=== PATIENT | female | born 1955 | race Caucasian/White ===

== ENCOUNTER 2016-07-12 09:56 | Outpatient (CLI) | payer MEDICARE, OTHER | END 2016-07-12 09:57 | disposition home or self-care (01) | DX: Z12.31 Encounter for screening mammogram for malignant neoplasm of breast (principal) ==

== ENCOUNTER 2016-10-14 18:05 | Outpatient (CLI) | payer MEDICARE, OTHER ==
[2016-10-14] MEDS ORDERED: IOPAMIDOL-300 100 ML VIAL IVP ONE (19:52)
[2016-10-14] MEDS ORDERED: IOPAMIDOL-300 50 ML VIAL PO ONE (19:52)
== END 2016-10-14 18:06 | disposition home or self-care (01) ==
DX: R10.32 Left lower quadrant pain (principal); R91.8 Other nonspecific abnormal finding of lung field; Z85.118 Personal history of other malignant neoplasm of bronchus and lung

== ENCOUNTER 2016-10-18 09:14 | Outpatient (CLI) | payer MEDICARE, OTHER ==
[2016-10-18] MEDS ORDERED: IOPAMIDOL-300 100 ML VIAL IVP ONE (10:08)
--- NOTE | 2016-10-18 12:59 | CT Report ---
CT CHEST WITH CONTRAST: 10/18/2016 CLINICAL INDICATION: History of right lung cancer, nodule noted at right lung base on CT abdomen and pelvis of 10/14/2016. COMPARISON: CT abdomen and pelvis of 10/14/2016, CT chest 11/15/2013. TECHNIQUE: Axial CT images of the chest were obtained with 100 mL Isovue-300 intravenously. In accordance with CT protocol optimization, one or more of the following dose reduction techniques w ere utilized for this exam: automated exposure control, adjustment of mA and/or KV based on patient size, or use of iterative reconstructive technique. FINDINGS: The heart and great vessels demonstrate atherosclerotic calcifications. No hilar or media stinal lymphadenopathy is present. The 4-mm subpleural nodule in the posteromedial right lower lobe is unchanged from CT of 10/14/2016 (best seen on axial image 45). Minimal atelectatic changes are pr esent. No other pulmonary nodule or mass lesion is seen. No effusion or pneumothorax is present. P ostoperative changes are stable. Limited evaluation of upper abdominal structures demonstrates francisca l adrenal glands. Osseous structures demonstrate degenerative changes. IMPRESSION: A 4-MM SUBPLEURAL NODULE IN THE RIGHT LOWER LOBE. NO OTHER PULMONARY NODULE OR MASS LES ION IS SEEN. STABLE POSTOPERATIVE CHANGES. JOB #: [id number] EXT JOB #:[id number]
== END 2016-10-18 09:15 | disposition home or self-care (01) ==
LOC: LAB 09:14
PROVIDERS: ATTEND Physician Assistant Medical
DX: C34.31 Malignant neoplasm of lower lobe, right bronchus or lung (principal)
CPT/HCPCS: 71260; Q9967

== ENCOUNTER 2016-10-31 20:15 | Outpatient (CLI) | payer MEDICARE, OTHER ==
[2016-10-31 19:34] LABS: BASOPHILS % (AUTO) 0.5 %; EOSINOPHILS # (AUTO) 0.2 10^3/uL (0.0-0.7); EOSINOPHILS % (AUTO) 1.6 %; HCT - HEMATOCRIT 44.4 % (37.0-47.0); HGB - HEMOGLOBIN 14.7 g/dL (12.0-16.0); LYMPHOCYTES % (AUTO) 30.2 %; MEAN CORPUSCULAR HEMOGLOBIN 28.1 pg (27.0-31.0); MEAN CORPUSCULAR HGB CONC 33.2 g/dL (32.0-36.0); MEAN CORPUSCULAR VOLUME 84.8 fL (81.0-99.0); MEAN PLATELET VOLUME 10.4 fL (7.9-10.8); MONOCYTES # (AUTO) 0.8 10^3/uL (0.0-1.0); MONOCYTES % (AUTO) 7.6 %; NEUTROPHILS # (AUTO) 5.9 10^3/uL (1.5-6.6); NEUTROPHILS % (AUTO) 60.1 %; RED BLOOD COUNT 5.24 10^6/uL (4.20-5.40); RED CELL DISTRIBUTION WIDTH 13.6 % (12.0-15.0); UNCORRECTED WHITE BLOOD COUNT 9.8 x10^3/uL; WHITE BLOOD COUNT 9.8 x10^3/uL (4.8-10.8)
[2016-10-31 20:16] LABS: THYROID STIMULATING HORMONE < 0.08 uIU/mL (0.34-5.60)
== END 2016-10-31 20:16 | disposition home or self-care (01) ==
LOC: LAB.WCP 20:15
PROVIDERS: ATTEND Family Medicine
DX: E05.90 Thyrotoxicosis, unspecified without thyrotoxic crisis or storm (principal); R10.9 Unspecified abdominal pain
CPT/HCPCS: 36415; 84439; 84443; 84481; 85025

== ENCOUNTER 2017-01-06 09:47 | Outpatient (CLI) | payer MEDICARE, OTHER ==
[2017-01-06 13:53] LABS: CHOL/HDL RATIO 3.8 (<4.4); CHOLESTEROL 117 mg/dL; HDL CHOLESTEROL 31 mg/dL; LDL/HDL RATIO 1.8 (<4.4); TRIGLYCERIDES 144 mg/dL; VLDL CHOLESTEROL 29 mg/dL
[2017-01-06 16:52] LABS: HEMOGLOBIN A1C 0.98 g/dL
== END 2017-01-06 09:48 | disposition home or self-care (01) ==
LOC: LAB.WCP 09:47
PROVIDERS: ATTEND Physician Assistant Medical
DX: E11.65 Type 2 diabetes mellitus with hyperglycemia (principal)
CPT/HCPCS: 36415; 80061; 83036

== ENCOUNTER 2017-05-07 15:51 | Outpatient (CLI) | payer MEDICARE, OTHER ==
[2017-05-07 12:32] LABS: BASOPHILS % (AUTO) 0.4 %; EOSINOPHILS # (AUTO) 0.2 10^3/uL (0.0-0.7); EOSINOPHILS % (AUTO) 1.7 %; HCT - HEMATOCRIT 44.3 % (37.0-47.0); LYMPHOCYTES # (AUTO) 3.9 10^3/uL (1.5-3.5); LYMPHOCYTES % (AUTO) 39.3 %; MEAN CORPUSCULAR HEMOGLOBIN 28.1 pg (27.0-31.0); MEAN CORPUSCULAR HGB CONC 33.8 g/dL (32.0-36.0); MEAN PLATELET VOLUME 9.7 fL (7.9-10.8); MONOCYTES # (AUTO) 0.8 10^3/uL (0.0-1.0); MONOCYTES % (AUTO) 7.7 %; NEUTROPHILS # (AUTO) 5.1 10^3/uL (1.5-6.6); NEUTROPHILS % (AUTO) 50.9 %; RED BLOOD COUNT 5.34 10^6/uL (4.20-5.40); RED CELL DISTRIBUTION WIDTH 12.9 % (12.0-15.0)
[2017-05-07 12:47] LABS: CALCIUM 9.1 mg/dL (8.5-10.3); CREATININE 0.3 mg/dL (0.4-1.0); POTASSIUM 3.7 mmol/L (3.5-5.0)
[2017-05-07 13:07] LABS: HEMOGLOBIN A1C 0.97 g/dL
== END 2017-05-07 15:52 | disposition home or self-care (01) ==
LOC: LAB.WCP 15:51
PROVIDERS: ATTEND Physician Assistant Medical
DX: E11.65 Type 2 diabetes mellitus with hyperglycemia (principal); D75.1 Secondary polycythemia
CPT/HCPCS: 36415; 80048; 82043; 83036; 85025

== ENCOUNTER 2017-11-27 08:00 | Outpatient (CLI) | payer MEDICARE, OTHER ==
[2017-11-27 19:26] LABS: CALCIUM 9.5 mg/dL (8.5-10.3); CREATININE 0.4 mg/dL (0.4-1.0)
[2017-11-27 19:59] LABS: HB2 TOTAL 17.8 g/dL; HEMOGLOBIN A1C 1.14 g/dL
== END 2017-11-27 08:01 | disposition home or self-care (01) ==
LOC: LAB.WCP 08:00
PROVIDERS: ATTEND Physician Assistant Medical
DX: E11.65 Type 2 diabetes mellitus with hyperglycemia (principal)
CPT/HCPCS: 36415; 80048; 83036

== ENCOUNTER 2018-01-20 20:39 | Emergency (ER) | payer MEDICARE, OTHER ==
[2018-01-20] MEDS ORDERED: IBUPROFEN 800 MG TABLET PO STA ×2 (21:02→22:20)
--- NOTE | 2018-01-20 21:10 | ED Physician Documentation ---
PD HPI LOWER EXT INJURY - Stated complaint Stated Complaint: GLF/RT HIP PX - Chief complaint Chief Complaint: Ext Problem - History obtained from History obtained from: Patient - History of Present Illness PD HPI LOW EXT INJURY LOCATION: Right (63-year-old woman tripped and fell on her deck, her left knee gave out and then she landed on her right injuring the right knee and hip. She is able to walk but with a lot of difficulty. Also the low back hurts. 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 - Past Surgical History Past Surgical History: Yes General: Other - Present Medications Home Medications: Ambulatory Orders Medication Instructions Recorded Confirmed Ibuprofen [Motrin] 800 mg PO Q8H PRN #30 tablet 01/20/18 - Allergies Allergies/Adverse Reactions: Allergies Allergy/AdvReac Type Severity Reaction Status Date / Time propoxyphene [From Darvon] AdvReac Itching Verified 01/20/18 21:10 narc AdvReac Itching Uncoded 01/20/18 21:11 narcotics AdvReac Itching Uncoded 01/20/18 21:11 - Social History Does the pt smoke?: No Smoking Status: Never smoker Does the pt drink ETOH?: No Does the pt have substance abuse?: No - Immunizations Immunizations are current?: Yes - POLST Patient has POLST: No PD ED PE NORMAL - Vitals Vital signs reviewed: Yes - General General: Alert and oriented X 3, No acute distress - Neck Neck: Supple, no meningeal sign, No bony TTP - Abdomen Abdomen: Soft, Non tender - Back Back: Other (Very mild tenderness of the low lumbar spine) - Extremities Extremities: Other (The right hip itself is nontender, she is more tender over the right buttock. She has no pain with internal and external rotation of the right hip but with flexion at the hip she complains again of pain in the buttock. The right knee is very mildly tender anteriorly. The left knee has some tenderness on the medial and lateral sides without deformity or limited range of motion.) - Neuro Neuro: Alert and oriented X 3, Normal speech Results - Vitals Vitals: Vital Signs - 24 hr 01/20/18 01/20/18 20:43 21:12 Temperature 36.3 C L Heart Rate 72 Respiratory 18 17 Rate Blood Pressure 135/64 H O2 Saturation 93 Oxygen O2 Source Room air - Rads (name of study) X-rays of both hips, both knees, and the lumbar spine Radiology: EMP read contemporaneously (Negative for acute pathology, DJD in all of her joints.) PD MEDICAL DECISION MAKING - ED course ED course: The presentation and history and physical are inconsistent with hip fracture, more like buttock contusion. I can internally and externally rotate the hips without significant pain she has been ambulatory. - Sepsis Event Vital Signs: Vital Signs - 24 hr 01/20/18 01/20/18 20:43 21:12 Temperature 36.3 C L Heart Rate 72 Respiratory 18 17 Rate Blood Pressure 135/64 H O2 Saturation 93 Oxygen O2 Source Room air Departure - Departure Disposition: 01 Home, Self Care Clinical Impression: Knee sprain, bilateral Low back sprain Qualifiers: Encounter type: initial encounter Qualified Code(s): S33.5XXA - Sprain of ligaments of lumbar spine, initial encounter Contusion, buttock Qualifiers: Encounter type: initial encounter Qualified Code(s): S30.0XXA - Contusion of lower back and pelvis, initial encounter Condition: Good Record reviewed to determine appropriate education?: Yes Instructions: ED Low Back Pain Injury Follow-Up: Audra Chung PA-C [Primary Care Provider] - Within 1 week Prescriptions: Ibuprofen [Motrin] 800 mg PO Q8H PRN #30 tablet PRN Reason: PAIN &/OR FEVER Comments: Your blood pressure was elevated today on check into the emergency department. This does not mean that you have hypertension, it is a common phenomenon to come to the emergency department and have elevated blood pressure. I recommend that you see your primary care physician within the week to have it rechecked when you are feeling better.
--- NOTE | 2018-01-20 21:55 | XRAY Report ---
Procedure Date: 01/20/2018 Accession Number: [id number] / [id number] Procedure: XR - Lumbar Spine 2 View CPT Code: FULL RESULT: EXAM: LUMBOSACRAL SPINE RADIOGRAPHY EXAM DATE: 01/20/2018 09:33 PM. CLINICAL HISTORY: BACK PAIN, FALL. COMPARISONS: None. TECHNIQUE: 2 views. FINDINGS: Alignment: Normal. No spondylolisthesis or scoliosis. Bones: Five wfq-iwe-elqghsi lumbar vertebral bodies are present. No fractures or bone lesions. Disks: Osteophyte at every level. Facets: Facet arthropathy L5-S1 Sacroiliac Joints: Unremarkable. Soft Tissues: Vascular calcifications. The visualized bowel gas pattern is normal. IMPRESSION: DJD [facility]
--- NOTE | 2018-01-20 21:55 | XRAY Report ---
Procedure Date: 01/20/2018 Accession Number: [id number] / [id number] Procedure: XR - Hips 2V BILAT CPT Code: FULL RESULT: EXAM: BILATERAL HIP RADIOGRAPHY EXAM DATE: 01/20/2018 09:33 PM. CLINICAL HISTORY: HIP PAIN, FALL. COMPARISON: None. TECHNIQUE: 2 views each. FINDINGS: Bones: Normal. No fractures or bone lesion. Right Hip: Osteophyte acetabulum No dislocation. The hip joint space is preserved. Left Hip: Osteophyte acetabulum. No dislocation. The hip joint space is preserved. Soft Tissues: Normal. No soft tissue swelling. IMPRESSION: Mild bilateral DJD [facility]
--- NOTE | 2018-01-20 21:59 | XRAY Report ---
Procedure Date: 01/20/2018 Accession Number: [id number] / [id number] Procedure: XR - Knee 3 View BILAT CPT Code: FULL RESULT: EXAMS: 1. Right Knee Radiography 2. Left Knee Radiography EXAM DATE:01/20/2018 09:33 PM. CLINICAL HISTORY:KNEE PAIN FALL. COMPARISON: None. TECHNIQUE: 3 views each. FINDINGS: Right Knee: Bones: Normal. No fractures or bone lesions. Joints: Osteophyte patellofemoral compartment with facet narrowing No effusion. No subluxations. Soft Tissues: Normal. No soft tissue swelling. Left Knee: Bones: Normal. No fractures or bone lesions. Joints: Osteophyte patellofemoral compartment with facet narrowing No effusion. No subluxations. Soft Tissues: Normal. No soft tissue swelling. IMPRESSION: Bilateral DJD [facility]
[2018-01-20 22:30] VITALS: BP 138/59
== END 2018-01-20 23:00 | disposition home or self-care (01) ==
LOC: ED 20:39
DX: S83.92XA Sprain of unspecified site of left knee, initial encounter (principal); S83.91XA Sprain of unspecified site of right knee, initial encounter; S33.5XXA Sprain of ligaments of lumbar spine, initial encounter; S30.0XXA Contusion of lower back and pelvis, initial encounter; W18.09XA Striking against other object with subsequent fall, initial encounter; Y92.89 Other specified places as the place of occurrence of the external cause; R03.0 Elevated blood-pressure reading, without diagnosis of hypertension; Z85.118 Personal history of other malignant neoplasm of bronchus and lung
CPT/HCPCS: 72100; 73521; 73562; 99283; A9270

== ENCOUNTER 2018-02-25 08:11 | Outpatient (CLI) | payer MEDICARE, OTHER ==
--- NOTE | 2018-02-25 10:49 | MRI Report ---
Reason: INTERNAL DERANGEMENT,LEFT KNEE Procedure Date: 02/25/2018 Accession Number: [id number] / [id number] Procedure: MRI - Knee LT W/O CPT Code: FULL RESULT: EXAM: LEFT KNEE MRI WITHOUT CONTRAST EXAM DATE: 02/25/2018 10:03 AM. CLINICAL HISTORY: Internal derangement, left knee. COMPARISON: None. TECHNIQUE: Multiplanar, multisequence T1-weighted and fluid-sensitive sequences of the knee without contrast. Other: None. FINDINGS: Bones: Small osteophytes in all 3 compartments. Alignment normal. No fracture or marrow edema. Articular Cartilage: Grade III chondromalacia medial compartment. Grade II chondromalacia lateral compartment. Grade III-IV chondromalacia of the medial patella. Medial Meniscus: 2 cm complex tear of the posterior horn and body with a large horizontal cleavage component, and a peripheral oblique component of the meniscal body with a 0.6 cm inferior fragment displaced peripherally. Lateral Meniscus: The lateral meniscus is intact. Cruciate Ligaments: The anterior and posterior cruciate ligaments are intact. Collateral Ligaments: The medial collateral and lateral collateral ligamentous structures are intact. Tendons: The quadriceps, patellar, semimembranosus, and popliteus tendons are unremarkable. Musculature: No edema or fatty atrophy. Other: No effusion. Small collapsed popliteal fossa cyst adjacent to the distal semimembranosus below the joint level, with 1 or 2 small extruded loose joint bodies. No loose bodies. The medial and lateral retinacula are intact. The subcutaneous tissues and fat pads are unremarkable. IMPRESSION: 1. Moderate 3 compartment degenerative joint disease, most significant in the medial and patellofemoral compartments. 2. Complex tear posterior horn and body medial meniscus with a small inferior peripheral fragment extruded peripherally. 3. Collapsed popliteal fossa cyst posteromedial just below the joint space level with 2 small extruded loose joint bodies. [facility] MUSCULOSKELETAL RADIOLOGY SECTION
== END 2018-02-25 08:12 | disposition home or self-care (01) ==
LOC: DI 08:11
PROVIDERS: ATTEND Physician Assistant
DX: M17.12 Unilateral primary osteoarthritis, left knee (principal); S83.232A Complex tear of medial meniscus, current injury, left knee, initial encounter; M71.22 Synovial cyst of popliteal space [Baker], left knee

== ENCOUNTER 2018-04-22 10:32 | Outpatient (CLI) | payer MEDICARE, OTHER ==
[2018-04-22 19:20] LABS: HB2 TOTAL 16.7 g/dL; HEMOGLOBIN A1C 1.1 g/dL; HEMOGLOBIN A1C % 8.2 % (4.6-6.2)
[2018-04-22 19:33] LABS: BUN - BLOOD UREA NITROGEN 13 mg/dL (6-20); CALCIUM 9.5 mg/dL (8.5-10.3); CARBON DIOXIDE - CO2 24 mmol/L (21-32); CHLORIDE 105 mmol/L (101-111); CHOL/HDL RATIO 4.3 (<4.4); CHOLESTEROL 146 mg/dL; CREATININE 0.5 mg/dL (0.4-1.0); GFR - MDRD 125 (>89); GLUCOSE 195 mg/dL (70-100); HDL CHOLESTEROL 34 mg/dL; LDL CHOLESTEROL,CALCULATED 78 mg/dL; LDL/HDL RATIO 2.3 (<4.4); SODIUM 139 mmol/L (135-145); VLDL CHOLESTEROL 34 mg/dL
== END 2018-04-22 10:33 ==
LOC: LAB.WCP 10:32
PROVIDERS: ATTEND Physician Assistant Medical
DX: E11.65 Type 2 diabetes mellitus with hyperglycemia (principal)
CPT/HCPCS: 36415; 80048; 80061; 83036; 83721

== ENCOUNTER 2018-09-29 12:15 | Outpatient (CLI) | payer MEDICARE, OTHER ==
--- NOTE | 2018-09-30 09:02 | Mammography Report ---
Reason: SCREENING MAMMO Procedure Date: 09/29/2018 Accession Number: [id number] / [id number] Procedure: MGN - Screening Mammo Dig Bilat CPT Code: FULL RESULT: EXAM: Screening Mammo Dig Bilat DATE: 09/29/2018 1:34 PM CLINICAL HISTORY: Screening encounter. History of benign right breast biopsy. TECHNIQUE: (B) - Bilateral CC and MLO views were obtained. COMPARISON: 07/12/2016 through 12/27/2011. PARENCHYMAL PATTERN: (A) - The breast(s) demonstrate(s) scattered fibroglandular densities. FINDINGS: Postbiopsy changes are seen in the right breast, stable. There are no suspicious masses, calcifications, or areas of distortion. IMPRESSION: Benign findings. BI-RADS category 2. RECOMMENDATION: (ANNUAL) - Recommend routine annual screening mammography. BI-RADS CATEGORY: (2) - Benign Findings. STANDARD QUALIFYING STATEMENTS: 1. This examination was not reviewed with the aid of Computer-Aided Detection (CAD). 2. A negative or benign imaging report should not preclude biopsy if clinically suspicious findings are present. 3. Dense breasts may obscure an underlying neoplasm. 4. This examination was reviewed without the aid of 3D breast imaging (tomosynthesis).
== END 2018-09-29 12:16 | disposition home or self-care (01) ==
LOC: DI.N 12:15
DX: Z12.31 Encounter for screening mammogram for malignant neoplasm of breast (principal)
CPT/HCPCS: 77067

== ENCOUNTER 2018-10-07 11:15 | Outpatient (CLI) | payer MEDICARE, OTHER ==
[2018-10-07 19:09] LABS: HB2 TOTAL 16.2 g/dL; HEMOGLOBIN A1C 1.2 g/dL; HEMOGLOBIN A1C % 8.9 % (4.6-6.2)
[2018-10-07 19:25] LABS: ALBUMIN 3.4 g/dL (3.2-5.5); ALBUMIN/GLOBULIN RATIO 1.1 (1.0-2.2); ALKALINE PHOSPHATASE 55 IU/L (42-121); ALT ALANINE AMINOTRANSFERASE 24 IU/L (10-60); AST ASPARTATE AMINOTRANSFERASE 23 IU/L (10-42); BILIRUBIN,TOTAL 1.5 mg/dL (0.2-1.0); BUN - BLOOD UREA NITROGEN 7 mg/dL (6-20); CALCIUM 8.8 mg/dL (8.5-10.3); CARBON DIOXIDE - CO2 24 mmol/L (21-32); CHLORIDE 103 mmol/L (101-111); GLUCOSE 246 mg/dL (70-100); SODIUM 135 mmol/L (135-145); TOTAL PROTEIN 6.6 g/dL (6.7-8.2)
[2018-10-07 19:32] LABS: CREATININE < 0.3 mg/dL (0.4-1.0)
== END 2018-10-07 11:16 | disposition home or self-care (01) ==
LOC: LAB.WCP 11:15
PROVIDERS: ATTEND Physician Assistant Medical
DX: E11.65 Type 2 diabetes mellitus with hyperglycemia (principal); E05.90 Thyrotoxicosis, unspecified without thyrotoxic crisis or storm
CPT/HCPCS: 36415; 80053; 83036; 84443

== ENCOUNTER 2019-01-25 07:13 | Outpatient (CLI) | payer MEDICARE, OTHER ==
--- NOTE | 2019-01-25 20:02 | MRI Report ---
Reason: LUMBAR SPINAL STENOSIS Procedure Date: 01/25/2019 Accession Number: [id number] / [id number] Procedure: MRI - Lumbar Spine W/O CPT Code: FULL RESULT: EXAM: MRI LUMBAR SPINE WITHOUT CONTRAST. EXAM DATE: 01/25/2019 07:33 AM. CLINICAL HISTORY: Left-sided radiculopathy. COMPARISON: MRI LUMBAR SPINE W/O CONT 09/23/2012 2:00 PM. TECHNIQUE: Multiplanar, multisequence T1-weighted and fluid-sensitive sequences of the lumbar spine from T12 to S1 without contrast. Other: None. FINDINGS: Spinal Canal: The conus terminates at L1-L2. The conus medullaris and cauda equina are unremarkable. Alignment: There is a 3 mm retrolisthesis at L4-L5. There is straightening of the lumbar lordosis. Bone Marrow: Five jgl-ged-unuhrpp lumbar vertebral bodies are assumed. No gross fractures or bone lesions. No bone marrow replacement. Disk Levels/Facets: T12-L1: Unremarkable. L1-L2: There is a broad-based posterior disk bulge with mild facet joint osteoarthritis causing mild canal and foraminal narrowing. No significant change since the prior study. L2-L3: There is a central disk extrusion and mild facet joint osteoarthritis causing mild canal narrowing. There is mild bilateral foraminal narrowing. The extrusion has increased in size since the prior study. L3-L4: There is a broad-based posterior disk bulge with moderate facet joint osteoarthritis causing mild canal narrowing. There is mild bilateral foraminal narrowing. Canal and foraminal narrowing has evolved since the prior study. L4-L5: The retrolisthesis combines with mild facet joint osteoarthritis to cause mild canal and bilateral foraminal narrowing. Canal narrowing has evolved since the prior study. There is a right foraminal disk protrusion contacting the right L4 nerve root, unchanged since the prior study. L5-S1: There is mild facet joint osteoarthritis. There is mild bilateral foraminal narrowing. The canal is patent. No significant change since the prior study. Musculature: Normal. No edema or fatty atrophy. Other: There are multiple cysts in the right kidney. The paraspinal soft tissues appear unremarkable. IMPRESSION: 1. 3 mm retrolisthesis at L4-L5. 2. L1-L2: There is mild canal and foraminal narrowing. No significant change since the prior study. 3. L2-L3: There is a central disk extrusion and mild facet joint osteoarthritis causing mild canal narrowing. There is mild bilateral foraminal narrowing. The extrusion has increased in size since the prior study. 4. L3-L4: There is mild canal narrowing. There is mild bilateral foraminal narrowing. Canal and foraminal narrowing has evolved since the prior study. 5. L4-L5: The retrolisthesis combines with mild facet joint osteoarthritis to cause mild canal and bilateral foraminal narrowing. Canal narrowing has evolved since the prior study. There is a right foraminal disk protrusion contacting the right L4 nerve root, unchanged since the prior study. 6. L5-S1: There is mild bilateral foraminal narrowing. Canal is patent. No significant change since the prior study. Comment: The following findings are so common in adults without low back pain that while we report their presence, they must be interpreted with caution and in the context of the clinical situation. (Reference Grantk et al, Spine 2001) Prevalence of findings in patients without low back pain: Disk degeneration (any evidence): 92% Disk desiccation/T2 signal loss: 83% Disk height loss: 56% Disk bulge: 64% Disk protrusion: 32% Annular tear/high intensity zone: 38% RAD[facility]
== END 2019-01-25 07:14 | disposition home or self-care (01) ==
LOC: DI 07:13
PROVIDERS: ATTEND Physician Assistant Medical
DX: M51.26 Other intervertebral disc displacement, lumbar region (principal); M47.816 Spondylosis without myelopathy or radiculopathy, lumbar region; M43.16 Spondylolisthesis, lumbar region; M48.061 Spinal stenosis, lumbar region without neurogenic claudication; M47.817 Spondylosis without myelopathy or radiculopathy, lumbosacral region; M48.07 Spinal stenosis, lumbosacral region
CPT/HCPCS: 72148

== ENCOUNTER 2019-02-05 13:04 | Outpatient (CLI) | payer MEDICARE, OTHER ==
[2019-02-05 19:16] LABS: ALBUMIN/GLOBULIN RATIO 1.3 (1.0-2.2); ALKALINE PHOSPHATASE 61 IU/L (42-121); ALT ALANINE AMINOTRANSFERASE 22 IU/L (10-60); AST ASPARTATE AMINOTRANSFERASE 24 IU/L (10-42); BILIRUBIN,TOTAL 2.2 mg/dL (0.2-1.0); BUN - BLOOD UREA NITROGEN 10 mg/dL (6-20); CALCIUM 9.4 mg/dL (8.5-10.3); CARBON DIOXIDE - CO2 25 mmol/L (21-32); CHLORIDE 107 mmol/L (101-111); CHOL/HDL RATIO 3.6 (<4.4); CHOLESTEROL 126 mg/dL; CREATININE 0.4 mg/dL (0.4-1.0); GFR - MDRD 162 (>89); GLUCOSE 145 mg/dL (70-100); HDL CHOLESTEROL 35 mg/dL; LDL CHOLESTEROL,CALCULATED 61 mg/dL; LDL/HDL RATIO 1.7 (<4.4); SODIUM 140 mmol/L (135-145); VLDL CHOLESTEROL 30 mg/dL
[2019-02-05 19:39] LABS: HB2 TOTAL 16.4 g/dL; HEMOGLOBIN A1C 1.13 g/dL; HEMOGLOBIN A1C % 8.5 % (4.6-6.2)
== END 2019-02-05 23:59 | disposition home or self-care (01) ==
LOC: LAB.WCP 13:04
PROVIDERS: ATTEND Physician Assistant Medical
DX: E11.65 Type 2 diabetes mellitus with hyperglycemia (principal)
CPT/HCPCS: 36415; 80053; 80061; 83036; 83721

== ENCOUNTER 2019-05-19 08:00 | Outpatient (CLI) | payer MEDICARE, OTHER ==
[2019-05-19 13:03] LABS: CALCIUM 9.7 mg/dL (8.5-10.3); CREATININE 0.6 mg/dL (0.4-1.0)
[2019-05-19 13:26] LABS: HEMOGLOBIN A1C 1.18 g/dL; HEMOGLOBIN A1C % 8.9 % (4.6-6.2)
== END 2019-05-19 23:59 | disposition home or self-care (01) ==
LOC: LAB.WCP 08:00
PROVIDERS: ATTEND Physician Assistant Medical
DX: E11.65 Type 2 diabetes mellitus with hyperglycemia (principal)
CPT/HCPCS: 36415; 80048; 83036

== ENCOUNTER 2019-05-20 14:59 | Outpatient (CLI) | payer MEDICARE, OTHER ==
--- NOTE | 2019-05-21 09:19 | XRAY Report ---
Reason: CERVICAL RADICULOPATHY Procedure Date: 05/20/2019 Accession Number: [id number] / [id number] Procedure: WCP - Cervical Spine 2 View CPT Code: Final Report FULL RESULT: EXAM: CERVICAL SPINE RADIOGRAPHY EXAM DATE: 05/20/2019 02:59 PM. CLINICAL HISTORY: CERVICAL RADICULOPATHY. COMPARISONS: XR CERVICAL SPINE MIN 4 VIEWS 12/27/2009 5:46 PM. TECHNIQUE: 3 views. FINDINGS: Alignment: Mild kyphosis. Grade 1 anterolisthesis C4 on C5 Bones: The cervical vertebral bodies and posterior elements are well visualized from the skull base through C7-T1. No fractures or bone lesions. Disks: C4-C5 osteophyte, mild disk space narrowing. C5-C6, C6-C7 osteophyte, moderate disk space narrowing, subchondral sclerosis. Facets: No degenerative disease. Soft Tissues: Normal. No prevertebral soft tissue swelling. The visualized lung apices are clear. IMPRESSION: Moderate DJD [facility]
== END 2019-05-20 23:59 | disposition home or self-care (01) ==
LOC: DI.WCP 14:59
PROVIDERS: ATTEND Physician Assistant Medical
DX: M47.22 Other spondylosis with radiculopathy, cervical region (principal)
CPT/HCPCS: 72040

== ENCOUNTER 2019-07-27 15:03 | Outpatient (CLI) | payer MEDICARE, OTHER | END 2019-07-27 23:59 | disposition home or self-care (01) | LOC: LAB.R 15:03 | PROVIDERS: ATTEND Physician Assistant | DX: J11.1 Influenza due to unidentified influenza virus with other respiratory manifestations (principal) | CPT/HCPCS: 87275; 87276 ==

== ENCOUNTER 2019-07-27 15:23 | Outpatient (CLI) | payer MEDICARE, OTHER ==
--- NOTE | 2019-07-27 16:01 | XRAY Report ---
Reason: COUGH Procedure Date: 07/27/2019 Accession Number: [id number] / [id number] Procedure: WCP - Chest 2 View X-Ray CPT Code: 73983 Final Report FULL RESULT: EXAM: CHEST RADIOGRAPHY EXAM DATE: 07/27/2019 03:23 PM. CLINICAL HISTORY: Cough and congestion. COMPARISON: 09/20/2015 3:42 PM. TECHNIQUE: 2 views. FINDINGS: Lungs/Pleura: No focal opacities evident. No pleural effusion. No pneumothorax. Normal volumes. Broad-based right hemidiaphragm eventration. Mediastinum: Heart and mediastinal contours are unremarkable. Other: None. IMPRESSION: No radiographic evidence of acute cardiopulmonary disease. RAD[facility]
== END 2019-07-27 23:59 | disposition home or self-care (01) ==
LOC: DI.WCP 15:23
PROVIDERS: ATTEND Physician Assistant
DX: R05 Cough (principal); J11.1 Influenza due to unidentified influenza virus with other respiratory manifestations
CPT/HCPCS: 71046; 87275; 87276

== ENCOUNTER 2019-08-14 09:56 | Outpatient (CLI) | payer MEDICARE, OTHER ==
[2019-08-14 10:57] LABS: BASOPHILS # (AUTO) 0.1 10^3/uL (0.0-0.1); BASOPHILS % (AUTO) 0.8 %; EOSINOPHILS # (AUTO) 0.1 10^3/uL (0.0-0.7); EOSINOPHILS % (AUTO) 1.4 %; HGB - HEMOGLOBIN 15.3 g/dL (12.0-16.0); LYMPHOCYTES # (AUTO) 2.7 10^3/uL (1.5-3.5); LYMPHOCYTES % (AUTO) 28.3 %; MEAN CORPUSCULAR HEMOGLOBIN 29.8 pg (27.0-31.0); MEAN CORPUSCULAR HGB CONC 33.1 g/dL (32.0-36.0); MEAN CORPUSCULAR VOLUME 89.9 fL (81.0-99.0); MEAN PLATELET VOLUME 10.7 fL (7.9-10.8); MONOCYTES # (AUTO) 0.7 10^3/uL (0.0-1.0); NEUTROPHILS % (AUTO) 62.1 %; PLT - PLATELET COUNT 213 10^3/uL (130-450); RED BLOOD COUNT 5.14 10^6/uL (4.20-5.40); RED CELL DISTRIBUTION WIDTH 12.5 % (12.0-15.0); WHITE BLOOD COUNT 9.6 x10^3/uL (4.8-10.8)
[2019-08-14 11:05] LABS: ALBUMIN 3.9 g/dL (3.2-5.5); ALBUMIN/GLOBULIN RATIO 1.2 (1.0-2.2); BILIRUBIN,TOTAL 1.7 mg/dL (0.2-1.0); CALCIUM 8.9 mg/dL (8.5-10.3); CREATININE 0.4 mg/dL (0.4-1.0); TOTAL PROTEIN 7.1 g/dL (6.7-8.2)
== END 2019-08-14 09:57 | disposition home or self-care (01) ==
LOC: LAB 09:56
PROVIDERS: ATTEND Nurse Practitioner Family
DX: E86.0 Dehydration (principal)
CPT/HCPCS: 36415; 80053; 85025

== ENCOUNTER 2019-08-18 10:00 | Outpatient (CLI) | payer MEDICARE, OTHER ==
[2019-08-18 12:36] LABS: CALCIUM 9.2 mg/dL (8.5-10.3); CREATININE 0.5 mg/dL (0.4-1.0)
[2019-08-18 13:35] LABS: HB2 TOTAL 16.2 g/dL; HEMOGLOBIN A1C 1.14 g/dL; HEMOGLOBIN A1C % 8.6 % (4.6-6.2)
== END 2019-08-18 23:59 | disposition home or self-care (01) ==
LOC: LAB.WCP 10:00
PROVIDERS: ATTEND Physician Assistant Medical
DX: E11.65 Type 2 diabetes mellitus with hyperglycemia (principal)
CPT/HCPCS: 36415; 80048; 83036

== ENCOUNTER 2019-08-18 15:36 | Outpatient (CLI) | payer MEDICARE, OTHER ==
[2019-08-18] MEDS ORDERED: IOVERSOL 320 50 ML VIAL ONE (15:47)
[2019-08-18] MEDS ORDERED: IOVERSOL 320 100 ML VIAL IVP ONE ×2 (15:47→16:55)
[2019-08-18] MEDS ORDERED: IOVERSOL 320 50 ML VIAL PO ONE (16:55)
--- NOTE | 2019-08-18 17:25 | CT Report ---
Reason: LLQ ABD PAIN Procedure Date: 08/18/2019 Accession Number: [id number] / [id number] Procedure: CT - Abdomen/Pelvis W CPT Code: Addended Final Report FULL RESULT: EXAM: CT ABDOMEN AND PELVIS EXAM DATE: 08/18/2019 04:54 PM. CLINICAL HISTORY: Left lower quadrant abdominal pain. COMPARISONS: ABDOMEN/PELVIS W/ 10/14/2016 7:45 PM. TECHNIQUE: Routine helical CT imaging was performed through the abdomen and pelvis. IV contrast: Yes. Enteric contrast: No. Reconstructions: Coronal and sagittal. In accordance with CT protocol optimization, one or more of the following dose reduction techniques were utilized for this exam: automated exposure control, adjustment of mA and/or KV based on patient size, or use of iterative reconstructive technique. FINDINGS: Imaged chest: Coronary artery disease. Surgical clips in the right hilum suggest prior wedge resection or lobectomy. Unchanged 2 mm pulmonary nodules within the left lower lobe. Liver: Enlarged fatty liver, similar to prior. Unchanged subcentimeter low-density focus in the left lobe likely presents a small cyst. Gallbladder: Contracted but otherwise unremarkable. Biliary: Unremarkable. Pancreas: Again coarse calcification in the pancreatic tail. The pancreas is otherwise unremarkable. Spleen: Unremarkable. Adrenal glands: Unremarkable. Kidneys: No hydronephrosis or nephrolithiasis. Unchanged low-density focus in the kidney. Urinary bladder: Unremarkable. Reproductive organs: Hysterectomy. Bowel: Unremarkable. Stomach: Unremarkable. Appendix: Unremarkable. Miscellaneous: Again subtle mistiness within the central mesentery consistent with chronic mesenteric panniculitis. No free fluid. No extraluminal gas. Aorta: Moderate/severe aortic atherosclerosis. Normal in caliber. Lymph nodes: No pathologically enlarged lymph nodes identified. Bones: No acute fracture. No suspicious osseous lesions. Sidewalls: Unremarkable. IMPRESSION: 1. No acute findings to explain patient's symptoms. 2. Enlarged fatty liver, similar to prior. 3. Hysterectomy. 4. Other chronic findings similar to prior study, as detailed above. [facility] The call report notification system was initiated by Dr. Jackie Reyna at 05:23 PM on 08/18/2019. ADDENDUM: 08/18/19 17:27 The above call report findings were discussed with Audra Chung by Dr. Jackie Reyna at 05:27 PM on 08/18/2019.
== END 2019-08-18 15:37 | disposition home or self-care (01) ==
LOC: DI 15:36
PROVIDERS: ATTEND Physician Assistant Medical
DX: R10.32 Left lower quadrant pain (principal); K76.0 Fatty (change of) liver, not elsewhere classified; K86.89 Other specified diseases of pancreas; E11.65 Type 2 diabetes mellitus with hyperglycemia; Z90.710 Acquired absence of both cervix and uterus
CPT/HCPCS: 36415; 74177; 80048; 83036; Q9967

== ENCOUNTER 2019-11-15 19:33 | Outpatient (CLI) | payer MEDICARE, OTHER | END 2019-11-15 19:34 | disposition critical access hospital (66) | LOC: EMS 19:33 | PROVIDERS: ATTEND Surgery | DX: M54.5 Low back pain (principal) | CPT/HCPCS: A0425; A0429 ==

== ENCOUNTER 2019-11-15 19:53 | Observation (INO) | payer MEDICARE, OTHER ==
[2019-11-15] MEDS ORDERED: diazePAM INJ 5 MG/ML SYRINGE IM STA ×2 (20:14→21:08)
[2019-11-15] MEDS ORDERED: KETOROLAC 30 MG/ML VIAL IM STA (20:14)
[2019-11-15] MEDS ORDERED: DEXAMETHASONE 10 MG/ML VIAL IM STA (20:15)
--- NOTE | 2019-11-15 20:48 | ED Physician Documentation ---
PD HPI BACK PAIN - Stated complaint Stated Complaint: BACK PAIN - Chief complaint Chief Complaint: Back Pain - History obtained from History obtained from: Patient, Family - History of Present Illness Timing - onset: How many hours ago (1) Timing - duration: Hours (1) Timing - details: Abrupt onset Pain level max: 10 Pain level now: 10 Location: Mid, Lower, Right, Left Quality: Pain, Spasm, Similar to prior episodes Associated symptoms: No: Fever, Weakness, Numbness, Incontinent of urine, Unable to urinate, Hematuria, Incontinent of stool Improves with: Rest Worsened by: Movement Contributing factors: Other (Patient was painting her cabinet doors. When she went to stand up, she felt a gripping in her back. Has pain rating down bilateral legs. History of spinal stenosis, sciatica. No loss of bowel or bladder control.) Recently seen: Not recently seen Review of Systems Ten Systems: 10 systems reviewed and negative Constitutional: denies: Fever, Chills Nose: denies: Rhinorrhea / runny nose, Congestion GI: denies: Vomiting, Diarrhea : denies: Unable to Void, Incontinent Skin: denies: Rash Musculoskeletal: denies: Neck pain Neurologic: denies: Headache PD PAST MEDICAL HISTORY - Past Medical History Cardiovascular: Hypertension, High cholesterol, Coronary artery disease, ID Respiratory: Sleep apnea, Other Neuro: None Endocrine/Autoimmune: Type 2 diabetes, HyPERthyroidism, Other GI: Hiatal hernia TIRE 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: 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 : Nocturia, Frequency HEENT: None Psych: Depression, Anxiety, Post traumatic stress disorder Musculoskeletal: Fibromyalgia, Chronic back pain, Other Derm: None Other Past Medical History: chronic back problems - Past Surgical History Past Surgical History: Yes General: Other Ortho: Other /TIRE SERVICER: section, Hysterectomy Cardiovascular: Coronary stent, Lobectomy - Present Medications Home Medications: Ambulatory Orders Medication Instructions Recorded Confirmed Aspirin [Adult Aspirin Regimen] 81 mg PO DAILY 02/24/19 02/24/19 Atorvastatin Calcium 40 mg PO QPM 02/24/19 02/24/19 Empagliflozin [Jardiance] 25 mg PO DAILY 02/24/19 02/24/19 Gabapentin 300 mg PO TID 02/24/19 02/24/19 Losartan Potassium 25 mg PO DAILY 02/24/19 02/24/19 Meloxicam 7.5 mg PO BID 02/24/19 02/24/19 Metformin HCl 500 mg PO BID 02/24/19 02/24/19 Omeprazole 20 mg PO BID 02/24/19 02/24/19 SITagliptin [Januvia] 100 mg PO DAILY 02/24/19 02/24/19 Sertraline HCl 50 mg PO DAILY 02/24/19 02/24/19 - Allergies Allergies/Adverse Reactions: Allergies Allergy/AdvReac Type Severity Reaction Status Date / Time codeine AdvReac projectile Verified 02/24/19 15:56 vomiting propoxyphene [From Darvon] AdvReac Itching Verified 01/20/18 21:10 narc AdvReac Itching Uncoded 01/20/18 21:11 narcotics AdvReac Emesis Uncoded 02/24/19 15:56 - Social History Does the pt smoke?: No Smoking Status: Never smoker Does the pt drink ETOH?: No Does the pt have substance abuse?: No - Immunizations Immunizations are current?: Yes - POLST Patient has POLST: No PD ED PE NORMAL - Vitals Vital signs reviewed: Yes - General General: Alert and oriented X 3, Other (Appears in pain) - HEENT HEENT: Moist mucous membranes - Neck Neck: Supple, no meningeal sign, No bony TTP - Cardiac Cardiac: RRR - Respiratory Respiratory: No respiratory distress, Clear bilaterally - Abdomen Abdomen: Soft, Non tender, Non distended - Back Back: No spinal TTP (No midline tenderness to palpation or percussion. Tender to palpation bilateral paraspinal low lumbar with spasm present.) - Derm Derm: Warm and dry - Extremities Extremities: Other (Normal bilateral lower extremity patellar and ankle jerk reflexes. Normal great toe extension bilaterally. no saddle anesthesia) - Neuro Neuro: Alert and oriented X 3, bacteriology teacher 2-12 intact, No motor deficit, No sensory deficit Eye Opening: Spontaneous Motor: Obeys Commands Verbal: Oriented GCS Score: 15 Results - Vitals Vitals: Vital Signs - 24 hr 11/15/19 19:58 Temperature 36.9 C Heart Rate 70 Respiratory 18 Rate Blood Pressure 127/73 O2 Saturation 98 Oxygen O2 Source Room air PD MEDICAL DECISION MAKING - ED course Complexity details: reviewed results, re-evaluated patient, considered differential (No cauda equina, no spinal epidural abscess, no fracture, no aortic dissection or evidence of aneursym rupture), d/w patient ED course: 64-year-old female with acute on chronic back pain. Appears to have significant spasm. No neurological deficits. Given Toradol, Decadron, Valium. Was still having pain, so was given a low dose IM ketamine. She is moving better, but is having some visual after the medication wears off. Patient will be signed out to the oncoming emergency department physician awaiting repeat evaluation. She will likely be able to go home and take her Flexeril at home. This document was made in part using voice recognition software. While efforts are made to proofread this document, sound alike and grammatical errors may o ccur. Departure - Departure Clinical Impression: Back spasm Condition: Stable
[2019-11-15] MEDS ORDERED: KETAMINE 500 MG/10 ML VIAL IM STA (21:07)
[2019-11-15] MEDS ORDERED: ONDANSETRON ODT 4 MG TABLET TL STA (23:41)
[2019-11-15] MEDS ORDERED: oxyCODONE 5 MG TABLET PO STA (23:41)
[2019-11-16] MEDS ORDERED: MORPHINE 2 MG/ML CARPUJECT IVP STA (01:00)
[2019-11-16 01:29] LABS: BASOPHILS % (AUTO) 0.4 %; HGB - HEMOGLOBIN 16.2 g/dL (12.0-16.0); LYMPHOCYTES # (AUTO) 1.2 10^3/uL (1.5-3.5); LYMPHOCYTES % (AUTO) 12.2 %; MEAN CORPUSCULAR HGB CONC 35.8 g/dL (32.0-36.0); MEAN CORPUSCULAR VOLUME 86.6 fL (81.0-99.0); MEAN PLATELET VOLUME 11.1 fL (7.9-10.8); MONOCYTES # (AUTO) 0.1 10^3/uL (0.0-1.0); MONOCYTES % (AUTO) 1.2 %; NEUTROPHILS # (AUTO) 8.7 10^3/uL (1.5-6.6); NEUTROPHILS % (AUTO) 85.6 %; PLT - PLATELET COUNT 190 10^3/uL (130-450); RED BLOOD COUNT 5.23 10^6/uL (4.20-5.40); RED CELL DISTRIBUTION WIDTH 12.3 % (12.0-15.0); WHITE BLOOD COUNT 10.2 x10^3/uL (4.8-10.8)
[2019-11-16 01:40] LABS: CALCIUM 9.4 mg/dL (8.5-10.3); CREATININE 0.6 mg/dL (0.4-1.0)
[2019-11-16] MEDS ORDERED: SODIUM CHLORIDE FLUSH 0.9% 10 ML SYRINGE IVP PRN (02:23)
[2019-11-16] MEDS ORDERED: oxyCODONE 5 MG TABLET PO PRN (02:23)
[2019-11-16] MEDS ORDERED: HYDROmorphone 0.5 MG/0.5 ML SYRINGE IVP PRN (02:23)
[2019-11-16] MEDS ORDERED: ONDANSETRON 4 MG/2 ML VIAL IVP PRN (02:23)
[2019-11-16] MEDS ORDERED: KETOROLAC 30 MG/ML VIAL IVP PRN (02:31)
--- NOTE | 2019-11-16 02:50 | HISTORY & PHYSICAL EXAMINATION ---
Chief Complaint - Chief Complaint Chief Complaint: intractable lower back pain History of Present Illness - Admitted From [facility] - History Obtained From Records Reviewed: yes History obtained from: patient - History of Present Illness HPI Comment/Other: Patient is a 64-year-old female with medical history significant for diabetes mellitus, hyperthyroidism, coronary artery disease, hyperlipidemia, fibromyalgia who presented to the ED with acute and intractable lower back pain. 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 She was unable to straighten back up and with each attempt to do so she experienced worsening pain. She described it as a burning and stinging feeling from her lower back which radiated down her legs bilaterally. As a result she presented to the emergency room where she was given several doses of pain medication included oxycodone, morphine, ketorolac and ketamine. She also received diazepam and dexamethasone. On recheck she rated her pain as an 8 out of 10 scale. However any attempt to stand up causes significant elevation of her pain. She described it as a stabbing pain which shoots up her back. She is only able to lay flat. Any attempt to move her legs worsens the pain. She denied any problems with urination. She has good sensation in her lower extremities bilaterally. She denied chest pain, dyspnea, abdominal pain or fever. She has been nauseous and reported chills. Especially feeling cold in her lower extremities. As a result of the persistence in her symptoms she was presented for admission for further treatment. History - Past Medical History Cardiovascular: reports: Hypertension, High cholesterol, Coronary artery disease, [place] Respiratory: reports: Sleep apnea, Other Neuro: reports: None Endocrine/Autoimmune: reports: Type 2 diabetes, HyPERthyroidism, Other GI: reports: Hiatal hernia CARDROOM DRAWING RUNNER: reports: None : reports: Nocturia, Frequency HEENT: reports: None Psych: reports: Depression, Anxiety, Post traumatic stress disorder Musculoskeletal: reports: Fibromyalgia, Chronic back pain, Other Derm: reports: None MRSA Hx?: No Other Past Medical History: chronic back problems, Hx of lung cancer - Past Surgical History General: reports: Other Ortho: reports: Other /CARDROOM DRAWING RUNNER: reports: section, Hysterectomy Cardiovascular: reports: Coronary stent, Lobectomy - Family & Social History Family History Comment/Other: Father had lung cancer. He was a smoker. He also had CABG x3 and VT. Mother had dementia, CVA. Brother 1 had CVA. Brother 2 had VT and CABG. Brother 3 had esophageal cancer. Patient reports extensive history of diabetes mellitus in the family Social History Notes: Patient lives with a roommate. She quit smoking in 2002. She reported a 30-year history of 1 pack/day. She rarely drinks alcohol. Denies illicit drug use - POLST Patient has POLST: No POLST Status: Full Code Meds/Allgy - Home Medications Home Medications: Ambulatory Orders Medication Instructions Recorded Confirmed Aspirin [Adult Aspirin Regimen] 81 mg PO DAILY 02/24/19 02/24/19 Atorvastatin Calcium 40 mg PO QPM 02/24/19 02/24/19 Empagliflozin [Jardiance] 25 mg PO DAILY 02/24/19 02/24/19 Gabapentin 300 mg PO TID 02/24/19 02/24/19 Losartan Potassium 25 mg PO DAILY 02/24/19 02/24/19 Meloxicam 7.5 mg PO BID 02/24/19 02/24/19 Metformin HCl 500 mg PO BID 02/24/19 02/24/19 Omeprazole 20 mg PO BID 02/24/19 02/24/19 SITagliptin [Januvia] 100 mg PO DAILY 02/24/19 02/24/19 Sertraline HCl 50 mg PO DAILY 02/24/19 02/24/19 - Allergies Allergies/Adverse Reactions: Allergies Allergy/AdvReac Type Severity Reaction Status Date / Time codeine AdvReac projectile Verified 02/24/19 15:56 vomiting propoxyphene [From Darvon] AdvReac Itching Verified 01/20/18 21:10 narc AdvReac Itching Uncoded 01/20/18 21:11 narcotics AdvReac Emesis Uncoded 02/24/19 15:56 Review of Systems - Constitutional Constitutional: reports: Chills. denies: Fatigue, Fever - Eyes Eyes: denies: Pain - Ears, Nose & Throat Ears, Nose & Throat: denies: Ear pain - Cardiovascular Cariovascular: denies: Irregular heart rate, Palpitations, Chest pain, Edema - Respiratory Respiratory: denies: Cough, Wheezing, SOB at rest - Gastrointestinal Gastrointestinal: reports: Nausea. denies: Abdominal pain, Abdominal distention - Genitourinary Genitourinary: denies: Dysuria, Frequency, Urgency - Musculoskeletal Musculoskeletal: reports: Back pain, Limited range of motion - Integumentary Integumentary: denies: Rash, Pruritis, Lesions, Dryness - Neurological Neurological: denies: General weakness, Focal weakness, Headache, Dizziness, Numbness - Psychiatric Psychiatric: denies: Depression, Anxiety - Endocrine Endocrine: denies: Polyuria, Polydypsia - Hematologic/Lymphatic Hematologic/Lymphatic: denies: Anemia, Bruising, Petechiae Prior Level of Functionality: She is independent of activities of daily living Exam - Vital Signs Vital Signs: Vital Signs x48h Temp Pulse Resp BP Pulse Ox 11/15/19 19:58 36.9 C 70 18 127/73 98 - Physical Exam General Appearance: positive: Alert, Severe distress Eyes Bilateral: positive: PERRL, EOMI ENT: positive: No signs of dehydration Neck: positive: No JVD, Trachea midline Respiratory: positive: Chest non-tender, No respiratory distress, Breath sounds nml. negative: Wheezes, Rales, Rhonchi Cardiovascular: positive: Regular rate & rhythm Abdomen: positive: Non-tender, No distention. negative: Guarding, Rebound Back: positive: Nml inspection Skin: positive: Color nml, No rash, Warm, Dry Extremities: positive: Nml appearance. negative: Full ROM Neurologic/Psychiatric: positive: Oriented x3 Conclusion/Plan - Problem List (1) Intractable low back pain Conclusion/Plan: Acute on chronic. Patient has history of spinal stenosis. Pain management with Dilaudid, oxycodone and Toradol. We will add Flexeril for muscle relaxant. MRI of the lumbar spine ordered. PT/OT to evaluate and treat. (2) Diabetes mellitus Conclusion/Plan: Patient on metformin, Januvia and Jardiance We will hold metformin in anticipation of MRI. We will resume Januvia and Jardiance after verification by pharmacy Accu-Cheks, hemoglobin A1c, sliding scale insulin Qualifiers: Diabetes mellitus type: type 2 (3) Hyperlipidemia Conclusion/Plan: On atorvastatin (4) Depression Conclusion/Plan: On sertraline (5) GERD (gastroesophageal reflux disease) Conclusion/Plan: Protonix ordered - Lab Results Fish Bones: 11/16/19 01:20 11/16/19 01:20 Core Measures - Anticipated LOS I expect patient to be DC'd or transferred within 96 hours.: Yes - DVT/VTE - Prophylaxis VTE/DVT Device ordered at admit?: Yes
[2019-11-16] MEDS ORDERED: CYCLOBENZAPRINE 10 MG TABLET PO PRN ×2 (03:02→10:12)
[2019-11-16 05:56] LABS: BASOPHILS % (AUTO) 0.2 %; HGB - HEMOGLOBIN 15.3 g/dL (12.0-16.0); LYMPHOCYTES # (AUTO) 1.4 10^3/uL (1.5-3.5); LYMPHOCYTES % (AUTO) 10.6 %; MEAN CORPUSCULAR HEMOGLOBIN 29.1 pg (27.0-31.0); MEAN CORPUSCULAR HGB CONC 33.6 g/dL (32.0-36.0); MEAN CORPUSCULAR VOLUME 86.5 fL (81.0-99.0); MEAN PLATELET VOLUME 11.1 fL (7.9-10.8); MONOCYTES # (AUTO) 0.1 10^3/uL (0.0-1.0); MONOCYTES % (AUTO) 0.8 %; NEUTROPHILS # (AUTO) 11.4 10^3/uL (1.5-6.6); NEUTROPHILS % (AUTO) 87.8 %; PLT - PLATELET COUNT 193 10^3/uL (130-450); RED BLOOD COUNT 5.26 10^6/uL (4.20-5.40); RED CELL DISTRIBUTION WIDTH 12.3 % (12.0-15.0)
[2019-11-16 06:05] LABS: CREATININE 0.4 mg/dL (0.4-1.0)
[2019-11-16 06:14] LABS: HEMOGLOBIN A1C 1.39 g/dL; HEMOGLOBIN A1C % 10.1 % (4.6-6.2)
[2019-11-16] MEDS ORDERED: PANTOPRAZOLE 40 MG TABLET PO SCH (07:00)
[2019-11-16] MEDS ORDERED: INSULIN ASPART 300 UNIT/3 ML PEN SUBQ SCH ×3 (08:00→12:30)
--- NOTE | 2019-11-16 08:23 | XRAY Report ---
Reason: low back pain Procedure Date: 11/16/2019 Accession Number: [id number] / [id number] Procedure: XR - Lumbar Spine 2 View CPT Code: Final Report FULL RESULT: PROCEDURE: Lumbar Spine 2 View INDICATIONS: low back pain TECHNIQUE: 2 views of the lumbar spine were acquired. COMPARISON: MRI lumbar spine dated 01/25/2019. FINDINGS: Bones: 5 rkd-soa-[id number] vertebrae are present. There is straightening of normal lumbar lordosis with grade 1 retrolisthesis of L4 on L5 unchanged from previous study. No acute vertebral body compression fractures. Mild degenerative endplate changes throughout lumbar spine is seen. No suspicious bony lesions. Soft tissues: Overlying bowel gas pattern is normal. No suspicious soft tissue calcifications. IMPRESSION: Chronic grade 1 retrolisthesis of L4 on L5 unchanged from prior study. Degenerative disc disease throughout lumbar spine. No acute compression fracture. No traumatic spondylolisthesis. No discrepancies from preliminary report. Reviewed by: Albaro Sage MD on 11/16/2019 8:22 AM PDT Approved by: Albaro Sage MD on 11/16/2019 8:22 AM PDT Station ID: [id number]
[2019-11-16] MEDS ORDERED: SODIUM CHLORIDE FLUSH 0.9% 10 ML SYRINGE IVP SCH (09:00)
[2019-11-16] MEDS ORDERED: HYDROcod/ACETAM 5/325 MG TABLET PO PRN (10:11)
--- NOTE | 2019-11-16 11:18 | MRI Report ---
Reason: intractable lower back pain Procedure Date: 11/16/2019 Accession Number: [id number] / [id number] Procedure: MRI - Lumbar Spine W/O CPT Code: Final Report FULL RESULT: PROCEDURE: Lumbar Spine W/O INDICATIONS: intractable lower back pain TECHNIQUE: Noncontrast sagittal T1 spin echo and T2 fast echo, sagittal STIR, axial T1 and T2 fast spin echo through the lumbar spine. In cases with scoliosis, additional coronal T2 fast spin echo may be performed. COMPARISON: X-ray lumbar spine 11/15/2019, MRI lumbar spine 01/25/2019. FINDINGS: Image quality: Excellent. Alignment and Curvature: There is trace retrolisthesis of L4 on L5, unchanged. Bone Marrow: Marrow is of normal overall signal. Minimal reactive endplate changes are present at L4-5. No acute vertebral body compression fractures. Spinal Cord: Conus medullaris terminates at the L1-L2 level. Visualized cord demonstrates normal signal and size. Paraspinous Soft Tissues: No paravertebral masses. Discs: Mild to moderate desiccation is present throughout the lumbar spine. L1-L2: Mild disc bulge with mild spinal stenosis. Mild bilateral foraminal narrowing. Facet and ligamentum flavum hypertrophy are noted. No interval change. L2-L3: Mild disc bulge with mild spinal stenosis. Axjf-xt-vwxqwcyr right and mild left foraminal narrowing, unchanged. Previous extrusion is no longer visualized. A set and ligamentum flavum hypertrophy are present. L3-L4: Mild disc bulge with moderate spinal stenosis. Cddc-jx-bhqpdtia bilateral foraminal narrowing, slightly progressive with facet and ligamentum flavum hypertrophy. L4-L5: Mild disc bulge with minimal spinal stenosis. Previous right foraminal protrusion is unchanged. There is moderate bilateral foraminal narrowing, stable. Facet and ligamentum flavum hypertrophy are present. L5-S1: Minimal disc bulge without spinal stenosis. Mild right and minimal to mild left foraminal narrowing, unchanged. Facet hypertrophy is present. IMPRESSION: 1. Multilevel degenerative changes with areas of interval progression as noted above. 2. Multilevel spinal stenosis most and both L3-4 secondary to disc bulge with contributing affective facet/ligament of flavum arthropathy. 3. Multilevel foraminal narrowing most prominent at L4-5 secondary to facet arthropathy. Reviewed by: Kelly Heart MD on 11/16/2019 11:16 AM PDT Approved by: Kelly Heart MD on 11/16/2019 11:16 AM PDT Station ID: [id number]
--- NOTE | 2019-11-16 11:27 | PHARMACY PROGRESS NOTE ---
- Best Possible Medication History Admit Date and Time: 11/16/19 0223 Processed by: Pharmacy Medication History completed: Yes Secondary Source(s): Physician records, Pharmacy records, Insurance records As the person ultimately responsible for medication therapy, providers are able to order a medication from an existing home medication list in [facility] via the "Reconcile Routine" prior to Confirmation of that medication by operations support professionals. Such practice is discouraged except when the physician, in their clinical judgment, deems that a medical need exists for a medication without regard to previous use.
[2019-11-16 12:27] VITALS: BP 121/64
--- NOTE | 2019-11-16 12:33 | Discharge Plan ---
Discharge Plan Problem Reviewed?: Yes Disposition: Home, Self Care Condition: Good Prescriptions: HYDROcod/ACETAM 5/325 [[place] 5/325] 1 tab PO Q6HR PRN 5 Days #20 tablet PRN Reason: Pain Cyclobenzaprine [Flexeril] 5 mg PO TID PRN #14 tablet PRN Reason: Spasms Diet: Diabetic Activity Restrictions: Activity as Tolerated Shower Restrictions: No Driving Restrictions: Yes (Please do not drive while you are the muscle relaxant or pain medication.) Health Concerns: You were seen in the hospital because of back pain. MRI of your lower back was obtained which showed degenerative joint disease with some spinal stenosis. This is unlikely to explain your acute onset of back pain. It is likely that you had a muscle strain/spasm which caused you to have severe pain. Your pain has improved with muscle relaxants. While you are in the hospital, your blood sugars have been elevated at greater than 200. Your A1c is also above 10%. You have an appointment scheduled with your primary care doctor so please follow-up with them to discuss the potential need for insulin. Plan of Treatment: Please take hydrocodone every 6 hours as needed for pain. Please take Flexeril 5 mg 3 times a day as needed for muscle spasms. This is a muscle relaxant. Care Goals: Please do not drive while you are taking hydrocodone or Flexeril as these medications can make you drowsy. Assessment: Patient expressed understanding of the treatment plan. Additional Instructions or Follow Up instructions: Please follow-up with your primary care provider as scheduled next week for follow-up of your back pain and management of your diabetes. No Smoking: If you smoke, Please STOP! Call for help. Follow-up with: Audra Chung PA-C [Primary Care Provider] -
--- NOTE | 2019-11-16 12:44 | DISCHARGE SUMMARY ---
"Discharge Summary Admit Date: 11/16/19 Discharge Date: 11/16/19 Discharging Provider: Isai Voss Primary Care Provider: Audra Chung Code Status: Attempt Resuscitation Condition at Discharge: Good Discharge Disposition: 01 Home, Self Care - DIAGNOSES Admission Diagnoses: Intractable low back pain Diabetes mellitus Hyperlipidemia Depression GERD Discharge Diagnoses with Status of Each Condition: Intractable low back pain - improving. MRI showed degenerative changes but no acute process. Her pain improved with opiates and muscle relaxants. She is discharged on hydrocodone and provided 20 tablets. She also provided with a prescription for Flexeril. Diabetes mellitus - stable. Her A1c was greater than 10%. She already has an appointment next week with her primary care provider as they were discussing the use of insulin. She was discharged on her home oral agents and asked to follow- up with her primary care provider next week as scheduled. Hyperlipidemia - stable. Depression - stable. GERD - stable. - HPI History of Present Illness: H&P per Dr. Granda: Patient is a 64-year-old female with medical history significant for diabetes mellitus, hyperthyroidism, coronary artery disease, hyperlipidemia, fibromyalgia who presented to the ED with acute and intractable lower back pain. She was painting cabinets dolls when she turned and bent over from a sitting position to mushroom picker something when the pain suddenly started. She was unable to straighten back up and with each attempt to do so she experienced worsening pain. She described it as a burning and stinging feeling from her lower back which radiated down her legs bilaterally. As a result she presented to the emergency room where she was given several doses of pain medication included oxycodone, morphine, ketorolac and ketamine. She also received diazepam and dexamethasone. On recheck she rated her pain as an 8 out of 10 scale. However any attempt to stand up causes significant elevation of her pain. She described it as a stabbing pain which shoots up her back. She is only able to lay flat. Any attempt to move her legs worsens the pain. She denied any problems with urination. She has good sensation in her lower extremities bilaterally. She denied chest pain, dyspnea, abdominal pain or fever. She has been nauseous and reported chills. Especially feeling cold in her lower extremities. As a result of the persistence in her symptoms she was presented for admission for further treatment. - CONSULTS | PROCEDURES Procedures: MRI of the lumbar spine without contrast showed multilevel degenerative changes with areas of interval progression. Multilevel spinal stenosis most at both L3- 4 secondary to disc bulge with contributing effective facet/ligamentum flavum arthropathy. Multilevel foraminal narrowing most prominent at L4-5 secondary to facet arthropathy. - HOSPITAL COURSE Hospital Course: She was admitted to the floor for intractable lower back pain. She was treated with Dilaudid IV as needed as well as oxycodone and Flexeril. She underwent an MRI of the lumbar spine which showed multilevel degenerative changes and spinal stenosis at L3-L4. There is also evidence of foraminal narrowing most prominent at L4-5 secondary to facet arthropathy. Her lower back pain improved with opiates and muscle relaxants. She was able to ambulate. She was discharged on hydrocodone 5/325 mg every 6 hours as needed as well as Flexeril 5 mg 3 times daily as needed. She was instructed not to drive while taking these medications. She will follow-up with her primary care provider next week. - ALLERGIES Allergies/Adverse Reactions: Allergies Allergy/AdvReac Type Severity Reaction Status Date / Time Opioids - Morphine Analogues AdvReac Intermediate Emesis/Itch Verified 11/16/19 10:14 ing codeine AdvReac projectile Verified 02/24/19 15:56 vomiting duloxetine AdvReac Nausea Verified 11/16/19 03:55 propoxyphene [From Darvon] AdvReac Itching Verified 01/20/18 21:10 - MEDICATIONS Home Medications: Ambulatory Orders Medication Instructions Recorded Confirmed Atorvastatin Calcium 40 mg PO QPM 02/24/19 11/16/19 Empagliflozin [Jardiance] 25 mg PO DAILY 02/24/19 11/16/19 Meloxicam 7.5 mg PO BIDWM 02/24/19 11/16/19 Metformin HCl 500 mg PO BID 02/24/19 11/16/19 Omeprazole 20 mg PO BIDAC 02/24/19 11/16/19 SITagliptin [Januvia] 100 mg PO DAILY 02/24/19 11/16/19 Sertraline HCl 50 mg PO DAILY 02/24/19 11/16/19 Cyclobenzaprine [Flexeril] 5 mg PO TID PRN #14 tablet 11/16/19 HYDROcod/ACETAM 5/325 [[place] 5/325] 1 tab PO Q6HR PRN 5 Days #20 tablet 11/16/19 Losartan Potassium [Cozaar] 50 mg PO DAILY 11/16/19 11/16/19 - PHYSICAL EXAM AT DISCHARGE General Appearance: positive: No acute distress, Alert, Mild distress ENT: positive: ENT inspection nml Neck: positive: Nml inspection Respiratory: positive: No respiratory distress. negative: Wheezes, Rales, Rhonchi Cardiovascular: positive: Regular rate & rhythm, No murmur. negative: Tachycardia Abdomen: positive: Non-tender, No distention. negative: Tenderness Back: positive: Nml inspection, Other (There is no evidence of lumbar tenderness. She did have left-sided paraspinal tenderness. No warmth, erythema. Sensation intact in her bilateral lower extremities.). negative: CVA tenderness (R), CVA tenderness (L) Skin: positive: Warm, Dry Extremities: positive: Full ROM, No pedal edema Neurologic/Psychiatric: positive: Oriented x3, Motor nml, Sensation nml, Other (There is no evidence of motor deficits on exam. Range of motion in the lumbar spine was limited secondary to pain but had improved compared to admission.). negative: Disoriented to person, Disoriented to place, Disoriented to time - LABS Result Diagrams: 11/16/19 05:27 11/16/19 05:27 - DIAGNOSTIC IMAGING Diagnostic Imaging Results: Final report reviewed - FOLLOW UP Follow Up: She will follow-up with her primary care provider next week as scheduled. - TIME SPENT Time Spent in Discharge (Minutes): 25"
--- NOTE | 2019-11-16 21:53 | ED Physician Documentation ---
ED Addendum - Addendum Addendum: 11/16/19 21:45 Patient signed out to me by Dr. Grayson. Acute exacerbation of chronic low back pain, sudden onset when working on cabinetry at home. She was given valium, toradol, decadron without improvement. Because of a stated allergy to all opioids, she was then given ketamine. This resulted in both improved symptoms but significant hallucinatory behavior and thus held in ED pending adequate improvement in her mental status. Unfortunately, as her mental status improved, her pain rapidly returned to the same level as when she first came to ED . Patient is in obvious painful discomfort at rest on my evaluation. We discussed her opioid reactions, and she describes nausea and vomiting and thus not true allergy but, rather, intolerance of side effects. After further discussion, plan is lumbar xrays, po zofran and oxycodone. Lumbar xrays show no evidence of acute pathology. Unfortunately, the patient again reported to me that she had no improvement at all with the oxycodone. I then ordered IV placement, basic lab tests, and IV morphine. Patient will likely need further testing (such as MRI) and treatment that would best be accomplished in the observation setting.
== END 2019-11-16 14:17 | disposition home or self-care (01) ==
LOC: EDUNIT# → ED 19:53 → MS3 11-16 02:23
PROVIDERS: ADMIT Internal Medicine; ATTEND Internal Medicine
DX: M54.5 Low back pain (principal); M51.36 Other intervertebral disc degeneration, lumbar region; M48.061 Spinal stenosis, lumbar region without neurogenic claudication; M47.816 Spondylosis without myelopathy or radiculopathy, lumbar region; E11.65 Type 2 diabetes mellitus with hyperglycemia; E78.5 Hyperlipidemia, unspecified; F32.9 Major depressive disorder, single episode, unspecified; K21.9 Gastro-esophageal reflux disease without esophagitis; E05.90 Thyrotoxicosis, unspecified without thyrotoxic crisis or storm; I25.10 Atherosclerotic heart disease of native coronary artery without angina pectoris; M79.7 Fibromyalgia; R35.1 Nocturia; R35.0 Frequency of micturition; Z72.89 Other problems related to lifestyle; F41.9 Anxiety disorder, unspecified; F43.10 Post-traumatic stress disorder, unspecified; Z79.84 Long term (current) use of oral hypoglycemic drugs; Z95.5 Presence of coronary angioplasty implant and graft; I25.2 Old myocardial infarction; Z85.118 Personal history of other malignant neoplasm of bronchus and lung; Z90.2 Acquired absence of lung [part of]; Z87.891 Personal history of nicotine dependence
CPT/HCPCS: 36415; 72100; 72148; 72149; 80048; 83036; 85025; 96372; 96374; 96375; 99285; A9270; G0378; J1170; Q0162

== ENCOUNTER 2020-02-16 08:42 | Outpatient (CLI) | payer MEDICARE, OTHER ==
[2020-02-16 12:40] LABS: HEMOGLOBIN A1c% 9.9 % (4.27-6.07)
[2020-02-16 12:50] LABS: ALBUMIN 4.1 g/dL (3.2-5.5); ALBUMIN/GLOBULIN RATIO 1.2 (1.0-2.2); ALKALINE PHOSPHATASE 67 IU/L (42-121); ALT ALANINE AMINOTRANSFERASE 25 IU/L (10-60); AST ASPARTATE AMINOTRANSFERASE 22 IU/L (10-42); BUN - BLOOD UREA NITROGEN 13 mg/dL (6-20); CALCIUM 9.5 mg/dL (8.5-10.3); CARBON DIOXIDE - CO2 25 mmol/L (21-32); CHLORIDE 105 mmol/L (101-111); CHOL/HDL RATIO 3.9 (<4.4); CHOLESTEROL 157 mg/dL; CREATININE 0.5 mg/dL (0.4-1.0); GLUCOSE 227 mg/dL (70-100); HDL CHOLESTEROL 40 mg/dL; LDL CHOLESTEROL,CALCULATED 77 mg/dL; LDL/HDL RATIO 1.9 (<4.4); SODIUM 137 mmol/L (135-145); TOTAL PROTEIN 7.4 g/dL (6.7-8.2); VLDL CHOLESTEROL 40 mg/dL
== END 2020-02-16 23:59 | disposition home or self-care (01) ==
LOC: LAB.WCP 08:42
PROVIDERS: ATTEND Physician Assistant Medical
DX: E11.9 Type 2 diabetes mellitus without complications (principal); E05.90 Thyrotoxicosis, unspecified without thyrotoxic crisis or storm
CPT/HCPCS: 36415; 80053; 80061; 83036; 83721; 84443

== ENCOUNTER 2020-06-22 08:00 | Outpatient (CLI) | payer MEDICARE, OTHER ==
[2020-06-22 12:35] LABS: ALBUMIN/GLOBULIN RATIO 1.3 (1.0-2.2); ALKALINE PHOSPHATASE 56 IU/L (42-121); ALT ALANINE AMINOTRANSFERASE 23 IU/L (10-60); AST ASPARTATE AMINOTRANSFERASE 25 IU/L (10-42); BILIRUBIN,TOTAL 1.4 mg/dL (0.2-1.0); BUN - BLOOD UREA NITROGEN 11 mg/dL (6-20); CALCIUM 9.4 mg/dL (8.5-10.3); CARBON DIOXIDE - CO2 25 mmol/L (21-32); CHLORIDE 105 mmol/L (101-111); CHOL/HDL RATIO 4.7 (<4.4); CHOLESTEROL 149 mg/dL; CREATININE 0.5 mg/dL (0.4-1.0); GLUCOSE 144 mg/dL (70-100); HDL CHOLESTEROL 32 mg/dL; LDL CHOLESTEROL,CALCULATED 93 mg/dL; LDL/HDL RATIO 2.9 (<4.4); TOTAL PROTEIN 7.2 g/dL (6.7-8.2); VLDL CHOLESTEROL 24 mg/dL
[2020-06-22 12:36] LABS: CREATININE,URINE 85.6 mg/dL; HEMOGLOBIN A1c% 8.6 % (4.27-6.07); MICROALBUM/CREATININE RATIO,UR 12.9 ug/mg (<30.0); MICROALBUMIN,URINE 1.1 mg/dL (0-300.0)
[2020-06-22 13:10] LABS: FREE T4 (FREE THYROXINE) 0.69 ng/dL (0.58-1.64)
== END 2020-06-22 23:59 | disposition home or self-care (01) ==
LOC: LAB.WCP 08:00
PROVIDERS: ATTEND Physician Assistant Medical
DX: E78.5 Hyperlipidemia, unspecified (principal); E05.90 Thyrotoxicosis, unspecified without thyrotoxic crisis or storm; E11.8 Type 2 diabetes mellitus with unspecified complications
CPT/HCPCS: 36415; 80053; 80061; 82043; 82570; 83036; 83721; 84439; 84443

== ENCOUNTER 2020-06-29 08:00 | Outpatient (CLI) | payer MEDICARE, OTHER | END 2020-06-29 23:59 | disposition home or self-care (01) | LOC: LAB.R 08:00 | PROVIDERS: ATTEND Physician Assistant Medical | DX: K62.5 Hemorrhage of anus and rectum (principal) | CPT/HCPCS: 82274 ==

== ENCOUNTER 2020-07-31 10:45 | Outpatient (CLI) | payer MEDICARE, OTHER ==
--- NOTE | 2020-08-01 13:38 | Ultrasound Report ---
LIMITED ULTRASOUND OF RIGHT BREAST AND AXILLA: 07/31/2020 CLINICAL: Patient returns for additional imaging over a suspected mass in the right breast. Comparison is made to exams dated: 07/31/2020 mammogram, 09/29/2018 mammogram, 07/12/2016 mammogram, 01/07 mammogram, and 12/27/2011 mammogram - [facility]. Color flow and real-time ultrasound of the right breast 11 o'clock, and axilla regions were performed . Coulter scale images of the real-time examination were reviewed. There is a subtle 0.7 cm irregular mass with indistinct and angular margins in the right breast at 11 o'clock posterior depth 7 cm from the nipple. This irregular mass is hypoechoic with an echogenic b oundary and posterior acoustic shadowing. This correlates as palpated, with mammography findings, an d area of clinical concern. Color flow imaging demonstrates that there is no vascularity present. No significant abnormalities were seen sonographically in the right axilla. IMPRESSION: SUSPICIOUS OF MALIGNANCY The 0.7 cm irregular mass in the right breast 11 o'clock 7 cm from the nipple is illdefined and subtl e on ultrasound. It is suspicious of malignancy. A stereotactic biopsy is recommended as this lesion may be difficult to biopsy by sonography. Findings and recommendations were discussed with the patient by Dr. Schuler during today's examination. This exam was interpreted at Station ID: [id number]. Electronically Signed By: Jose Francisco Laws M.D. aty/:07/31/2020 12:48:25 Ultrasound BI-RADS: 4 Suspicious for malignancy BI-RADS CATEGORY: (4) - 4 None [id number] Immediate follow-up LATERALITY: ()
--- NOTE | 2020-08-01 13:38 | Mammography Report ---
BILATERAL DIGITAL DIAGNOSTIC MAMMOGRAM 3D/2D: 07/31/2020 CLINICAL: Routine screening. Right lateral breast paint. Palpable right breast lump. Comparison is made to exams dated: 09/29/2018 mammogram, 07/12/2016 mammogram, 01/18/2014 mammogram, and 12/27/2011 mammogram - [facility]. There are scattered fibroglandular elements in both breasts. There is a new 1.1 cm irregular equal density asymmetry in the right breast at 11 o'clock posterior d epth. This correlates as palpated and with area of clinical concern. There is architectural distort ion associated with the asymmetry. No other significant masses, calcifications, or other findings are seen in either breast. IMPRESSION: INCOMPLETE: NEEDS ADDITIONAL IMAGING EVALUATION The new 1.1 cm irregular equal density asymmetry in the right breast is indeterminate. An ultrasound is recommended for further evaluation and is scheduled to immediately follow this exami nation. This exam was interpreted at Station ID: [id number]. NOTE: For mammograms, a report in lay terms will be sent to the patient. Approximately 15% of breast malignancies will not be visualized mammographically. In the management of a palpable breast mass, a negative mammogram must not discourage biopsy of a clinically suspicious lesion. Electronically Signed By: Jose Francisco Laws M.D. aty/:07/31/2020 12:44:33 ACR BI-RADS Category 0: Incomplete 3340F PARENCHYMAL PATTERN: (A) - The breast(s) demonstrate(s) scattered fibroglandular densities. BI-RADS CATEGORY: (0) - 0 Ultrasound [id number] Immediate follow-up LATERALITY: (R)
== END 2020-07-31 10:46 | disposition home or self-care (01) ==
LOC: DI 10:45
PROVIDERS: ATTEND Physician Assistant Medical
DX: N64.4 Mastodynia (principal); N63.11 Unspecified lump in the right breast, upper outer quadrant
CPT/HCPCS: 76642; 77066; G0279

== ENCOUNTER 2020-08-31 12:36 | Outpatient (CLI) | payer MEDICARE, OTHER | END 2020-08-31 12:37 | disposition home or self-care (01) | LOC: LAB 12:36 | PROVIDERS: ATTEND Physician Assistant Medical | DX: Z01.812 Encounter for preprocedural laboratory examination (principal); C50.911 Malignant neoplasm of unspecified site of right female breast; E11.9 Type 2 diabetes mellitus without complications; Z20.822 Contact with and (suspected) exposure to COVID-19 ==

== ENCOUNTER 2020-09-04 06:52 | Day surgery (SDC) | payer MEDICARE, OTHER ==
[2020-09-04] MEDS ORDERED: ceFAZolin 2 GM/50 ML 2 GM/50 ML BAG IV ONE (07:10)
[2020-09-04] MEDS ORDERED: BUFFERED LIDOCAINE 10 ML SYRINGE ONE (09:51)
[2020-09-04] MEDS ORDERED: LACTATED RINGERS 1,000 ML IV ONE ×2 (11:02→13:38)
--- NOTE | 2020-09-04 11:04 | ANESTHESIA ---
Pre-Anesthesia VS, & Labs - Diagnosis right breast cancer - Procedure right breast lumpectomy with sentential node biopsy Vital Signs: Temp Pulse Resp BP Pulse Ox 36 C L 69 20 150/77 H 96 09/04/20 07:00 09/04/20 07:00 09/04/20 07:00 09/04/20 07:00 09/04/20 07:00 Height: 5 ft 6 in Weight (kg): 97.1 kg Body Mass Index: 34.5 BMI Classification: Obese - NPO >8 hours - Is Patient ?: No - Lab Results Current Lab Results: Laboratory Tests 09/04/20 07:25: POC Whole Bld Glucose 283 H Home Medications and Allergies Home Medications: Ambulatory Orders Aspirin [Aspirin EC] 81 mg PO DAILY 08/31/20 Benzonatate [Tessalon] 100 - 200 mg PO TID PRN 08/31/20 Cyclobenzaprine [Flexeril] 10 mg PO TID PRN 08/31/20 Insulin Glargine [Lantus Solostar] 20 unit SQ BID 08/31/20 Levothyroxine [Synthroid] 75 mcg PO QDAC 08/31/20 Nitroglycerin [Nitrostat] 0.4 mg SL Q5MIN PRN 08/31/20 Ondansetron Odt [Zofran Odt] 4 mg TL Q6H PRN 08/31/20 Atorvastatin Calcium 40 mg PO QPM 02/24/19 Empagliflozin [Jardiance] 10 mg PO DAILY 02/24/19 Meloxicam 7.5 mg PO BIDWM 02/24/19 Metformin HCl 500 mg PO BID 02/24/19 Omeprazole 20 mg PO BIDAC 02/24/19 SITagliptin [Januvia] 100 mg PO DAILY 02/24/19 Sertraline HCl 50 mg PO DAILY 02/24/19 Losartan Potassium [Cozaar] 50 mg PO DAILY 11/16/19 Aspirin [Aspirin EC] 81 mg PO DAILY 08/31/20 Benzonatate [Tessalon] 100 - 200 mg PO TID PRN 08/31/20 Cyclobenzaprine [Flexeril] 10 mg PO TID PRN 08/31/20 Insulin Glargine [Lantus Solostar] 20 unit SQ BID 08/31/20 Levothyroxine [Synthroid] 75 mcg PO QDAC 08/31/20 Nitroglycerin [Nitrostat] 0.4 mg SL Q5MIN PRN 08/31/20 Ondansetron Odt [Zofran Odt] 4 mg TL Q6H PRN 08/31/20 Allergies/Adverse Reactions: Allergies Allergy/AdvReac Type Severity Reaction Status Date / Time Opioids - Morphine Analogues AdvReac Intermediate Emesis/Itch Verified 11/16/19 10:14 ing codeine AdvReac projectile Verified 02/24/19 15:56 vomiting duloxetine AdvReac Nausea Verified 11/16/19 03:55 niacin AdvReac Itching Verified 08/31/20 12:13 propoxyphene [From Darvon] AdvReac Itching Verified 01/20/18 21:10 Anes History & Medical History - Anesthetic History Anesthesia Complications: reports: Post-Operative Nausea/Vomiting - Medical History Cardiovascular: reports: Hypertension, High cholesterol, Coronary artery disease, [place]ina, [place] Pulmonary: reports: Sleep apnea, Other (Right lower lobe resection for lung cancer) Gastrointestinal: reports: GERD, Hiatal hernia, Other Urinary: reports: Nocturia, Frequency Neuro: reports: None Musculoskeletal: reports: Osteoarthritis, Fibromyalgia, Fatigue, Chronic back pain, Other Endocrine/Autoimmune: reports: Type 2 diabetes, HyPERthyroidism Blood Disorders: reports: None Skin: reports: None Smoking Status: Former smoker (quit 2002) Psychosocial: reports: Depression, Other (PTSD) History of Cancer?: Yes (thyroid, lung and breast) - Surgical History General: reports: Colonoscopy, Other Eyes Ears Nose Throat (EENT): Cardiothoracic: reports: Coronary stent, Lobectomy (right lower lobe) Gynecologic: reports: section, Hysterectomy Orthopedic: reports: Other Exam General: Alert, Oriented x3, Cooperative, No acute distress Dental: Dentures full Upper Mouth Openin Fingerbreadth Neck Mobility: Normal Mallampati classification: II Thyromental Distance: 4-6 cm Mental/Cognitive Status: Alert/Oriented X3, Normal for patient Plan Anesthesia Type: General Consent for Procedure(s) Verified and Reviewed: Yes Code Status: Attempt Resuscitation ASA classification: 3-Severe systemic disease Is this case an emergency?: No
--- NOTE | 2020-09-04 11:14 | Nuclear Medicine Report ---
PROCEDURE: Lymph Node Scintigraphy INDICATIONS: RT BREAST CA RADIOPHARMACEUTICAL: 0.5-1.0 mCi Millipore filtered Tc-99m sulfur colloid. TECHNIQUE: The area around the nipple was prepped and draped in a sterile fashion. Tc-99m sulfur colloid was in jected intra-dermally in the outer edge of the areola in the right breast. Images were obtained subs equently. A body contour outline was obtained. FINDINGS: There is/are 1 lymph node(s) in the ipsilateral axilla, which is marked on the skin and the images fo r referring physician. IMPRESSION: Administration of radiotracer into the right breast periareolar region for intra-operati ve sentinel lymph node localization. Reviewed by: Belia Walker MD, PhD on 09/04/2020 11:13 AM PDT Approved by: Belia Walker MD, PhD on 09/04/2020 11:13 AM PDT Station ID: [id number]
[2020-09-04] MEDS ORDERED: NALOXONE 0.4 MG/ML VIAL IVP PRN (11:17)
[2020-09-04] MEDS ORDERED: ONDANSETRON 4 MG/2 ML VIAL IVP PRN ×2 (11:17→13:47)
[2020-09-04] MEDS ORDERED: HYDROmorphone 0.5 MG/0.5 ML SYRINGE IVP PRN (11:17)
[2020-09-04] MEDS ORDERED: fentaNYL 100 MCG/2 ML VIAL IVP PRN (11:17)
[2020-09-04] MEDS ORDERED: ATROPINE ABBOJECT 1 MG/10 ML SYRINGE IVP PRN (11:17)
[2020-09-04] MEDS ORDERED: BUPIVACAINE 0.5% PF 30 ML VIAL ONE (11:23)
[2020-09-04] MEDS ORDERED: LIDOCAINE 2%-EPI 1:100000 20 ML MDV ONE (11:23)
[2020-09-04] MEDS ORDERED: BUPIVACAINE 0.5% PF 30 ML VIAL SUBQ ONE (11:29)
[2020-09-04] MEDS ORDERED: LIDOCAINE 2%-EPI 1:100000 20 ML MDV SUBQ ONE ×2 (11:29)
[2020-09-04] MEDS ORDERED: PROPOFOL 200 MG/20 ML VIAL IVP ONE (11:32)
[2020-09-04] MEDS ORDERED: LIDOCAINE-MPF 2% 5 ML VIAL ONE (11:32)
[2020-09-04] MEDS ORDERED: MIDAZOLAM 2 MG/2 ML VIAL ONE (11:34)
[2020-09-04] MEDS ORDERED: SCOPOLAMINE PATCH TOP SCH (12:00)
[2020-09-04] MEDS ORDERED: LACTATED RINGERS 1,000 ML IV SCH (12:00)
[2020-09-04] MEDS ORDERED: ONDANSETRON 4 MG/2 ML VIAL ONE (13:10)
[2020-09-04] MEDS ORDERED: KETOROLAC 30 MG/ML VIAL ONE (13:31)
--- NOTE | 2020-09-04 13:36 | OPERATIVE REPORT ---
Operative Report - General Procedure Date: 09/04/20 Planned Procedure: Right breast lumpectomy and sentinel node biopsy Pre-Op Diagnosis: Biopsy-proven right breast cancer Procedure Performed: Right breast lumpectomy and sentinel node biopsy with needle localization and mapping. Post Op Diagnosis: Biopsy-proven right breast cancer - Procedure Note Primary Surgeon: Kelvin Anesthesia Provider: DIEGO Avalos Anesthesia Technique: General LMA, Local Pathology: 1. [place] node #1 with 10-second count of 2489 2. [place] node #2 [place] [address] - Background in the axilla was 22 background in the room is 0 3. Right breast lumpectomy specimen with clip-Marked for orientation 4. True lateral margin - marked for orientation 5. Superior lateral margin - marked for orientation 6. Inferior lateral margin - marked for orientation Estimated Blood Loss (mL): 25 Findings: 1. 2 sentinel nodes 2. Lesion and clip contained within the first specimen but appear to be very near the lateral margin Complications: None apparent - Other Other Information/Narrative: After obtaining informed consent, the patient was brought to the operating room and placed in the supine position on the operating table. Following successful induction of general endotracheal anesthesia, appropriate padding of all bony prominences, and placement of appropriate monitors, the left breast was prepped and draped in the standard surgical fashion. A timeout was held per scope protocol. All elements of the surgical safety checklist were followed before, during, and after the procedure. We began the procedure with a sentinel node dissection. The site of the brightest node had been marked in radiology with 2 skin marker axis. The neoprobe was used to identify the site of greatest uptake at level 2 in the patient's axilla. An incision was created over this area of uptake and carried through the skin and subcutaneous tissue to enter the axillary node packet. The sentinel node was easily identified. It was grossly normal in appearance. It was carefully dissected free from surrounding stop structures sharply, all lymphatics and vasculature were addressed with clips prior to division. The node was liberated into the field. 10-second counts are recorded. Survey of the axilla revealed an additional targets superior to the first. The sentinel node was identified and again was grossly normal in appearance.Once again, all lymphatics and vasculature were addressed with hemoclips prior to division. The node was delivered into the field. 10-second counts were recorded. It was passed from the table as a specimen. Background in the axilla was checked and found to be 22. Background in the room was 0. The axillary incision was then closed in 2 layers with Vicryl and Monocryl sutures. We turned our attention to the right breast mass. Due to the extreme lateral nature of the mass, we were able to reach this lesion through the same incision we could used to obtain the sentinel nodes.The lateral breast tissue was divided and we continued our dissection down to the clip as marked by the wire.It was at this point that I dislodge the wire. Fortunately the lesion had already been identified so we continued with our dissection. The entire specimen was delivered into the field using sharp dissection only. This was done specifically to preserve margins. It was marked for orientation and submitted for specimen radiography.Dr. Harrell called back in the room and reported that the clip and the lesion were in the specimen but they appeared to be quite lateral and orientation. For this reason we elected to take additional lateral margins.The superior lateral margin was obtained sharply by simply grasping the tissue and using a curved Suazo scissors to incise the margin. It was marked for orientation and submitted. A true lateral margin was obtained in the same way, and an inferior lateral margin again the same way.The wound was checked for hemostasis and irrigated with warm water. The wound was checked for hemostasis. It was irrigated again with warm water. The wound was then closed in 2 layers with Vicryl and Monocryl sutures. All sponge, needle, and instrument counts were correct at the conclusion of the case. The patient was let awakened anesthesia without difficulty and taken to the postanesthesia care unit in good condition.
--- NOTE | 2020-09-04 13:45 | ANESTHESIA POST OP EVALUATION ---
Anesthesia Post Eval - Post Anesthesia Eval Vitals: Last Vital Signs Temp 36 C L 09/04/20 07:00 Pulse 69 09/04/20 07:00 Resp 20 09/04/20 07:00 BP 150/77 H 09/04/20 07:00 Pulse Ox 96 09/04/20 07:00 CV Function Including HR & BP: positive: Stable Pain Control: positive: Satisfactory Nausea & Vomiting: positive: Negative Mental Status: positive: Baseline Respiratory Status: Airway Patent Hydration Status: Satisfactory Anesthesia Complications: positive: None
[2020-09-04] MEDS ORDERED: oxyCODONE 5 MG TABLET PO PRN (13:47)
[2020-09-04] MEDS ORDERED: ACETAMINOPHEN 325 MG TABLET PO PRN (13:47)
[2020-09-04] MEDS ORDERED: IBUPROFEN 600 MG TABLET PO PRN (13:47)
[2020-09-04] MEDS ORDERED: BUFFERED LIDOCAINE 10 ML SYRINGE IU ONE (14:27)
[2020-09-04 14:31] VITALS: BP 116/59
--- NOTE | 2020-09-05 11:53 | Mammography Report ---
SPECIMEN RIGHT BREAST: 09/04/2020 CLINICAL: Right breast specimen. Correlation is made to exam dated: 09/04/2020 localization - [facility]. A surgical and wire localization specimen was imaged for the solid mass located in the right breast at 11 o'clock posterior depth. The speciment received from the OR includes the prior US biopsy local ization clip near one border, and the mass appears to extend into the adjacent border. The localizat ion wire was not included. IMPRESSION: SPECIMEN The imaged specimen includes a portion of the lesion and a biopsy clip. The solid mass extends to th e margins. The localization wire that encircled the mass originally is not included. This exam was interpreted at Station ID: [id number]. Jovi Harrell M.D. sdh/:09/04/2020 14:03:37 BI-RADS CATEGORY: () - Unspecified - other recall n/a LATERALITY: (B)
--- NOTE | 2020-09-05 11:53 | Mammography Report ---
MAMMOGRAPHY GUIDED WIRE LOCALIZATION RIGHT BREAST WITH POST MAMMOGRAPHIC IMAGING AND RADIOGRAPHIC SPE CIMEN IMAGIN09/04/2020 CLINICAL: Right breast wire localization. Correlation is made to exams dated: 08/28/2020 breast MRI - [facility], 08/08/2020 specimen, 021 stereotactic biopsy - [facility], 07/31/2020 mammogram, 09/29/2018 mammogram, and 017 mammogram - [facility]. A wire localization using mammography guidance was performed for the concerning indistinct irregular shaped solid mass located in the right breast at 11 o'clock middle depth. This was described on the previous mammography report. The skin was prepped in the usual manner. Local anesthetic was adminis tered to the access site. A skin mika was made in the breast. The localization was approached at 11 o'clock. A J-hook wire was inserted with distal wire curve at the mass and adjacent to the marker, under mammography guidance. A sterile dressing was applied to the access site. Post placement mammo graphic imaging demonstrates the wire curve demarcating the wire's boundaries adjacent to the prior U S biopsy marker. IMPRESSION: WIRE LOCALIZATION Wire localization for the solid mass in the right breast at 11 o'clock middle depth was successful. The imaged specimen includes a portion of the lesion and a biopsy clip. The lesion extends into the specimen boundry. This was called to the OR and discussed with the surgeon. This exam was interpreted at Station ID: [id number]. Jovi Harrell M.D. sdh/:09/04/2020 14:12:00 BI-RADS CATEGORY: () - Unspecified - other recall n/a LATERALITY: (B)
--- OUTSIDE RECORDS SUMMARY | 2020-09-12 20:51 | EXTERNAL MEDICAL SUMMARY RPT | Continuity of Care Document ---
:1955 Demographics Phone Unavailable Preferred Language Togolese Marital Status Unknown Yazidism Affiliation Unknown Race Unknown Ethnic Group Unknown Author Organization [facility] Address [address] [phone] Phone Care Team Providers Name Role Phone Young Unavailable Unavailable Problems date description facility [id number] Malignant neoplasm of unspecified site of right [facility] Social History date description facility [id number]
== END 2020-09-04 06:53 | disposition home or self-care (01) ==
LOC: SDS 06:52
PROVIDERS: ATTEND Surgery
PROC: 07B50ZX Excision of Right Axillary Lymphatic, Open Approach, Diagnostic (ICD-10-PCS; 2020-09-04)
PROC: 0HBT0ZZ Excision of Right Breast, Open Approach (ICD-10-PCS; principal; 2020-09-04 11:15)
DX: C50.411 Malignant neoplasm of upper-outer quadrant of right female breast (principal); Z17.0 Estrogen receptor positive status [ER+]; I10 Essential (primary) hypertension; I25.10 Atherosclerotic heart disease of native coronary artery without angina pectoris; I25.2 Old myocardial infarction; E11.9 Type 2 diabetes mellitus without complications; Z79.4 Long term (current) use of insulin; G47.30 Sleep apnea, unspecified; E66.9 Obesity, unspecified; Z68.34 Body mass index [BMI] 34.0-34.9, adult; Z85.118 Personal history of other malignant neoplasm of bronchus and lung; Z85.850 Personal history of malignant neoplasm of thyroid; Z90.2 Acquired absence of lung [part of]; Z87.891 Personal history of nicotine dependence
CPT/HCPCS: 19281; 19301; 38525; 76098; 78195; J0690; J3490; J7120

== ENCOUNTER 2020-11-27 09:45 | Outpatient (CLI) | payer MEDICARE, OTHER ==
--- NOTE | 2020-11-27 12:39 | DEXA Report ---
PROCEDURE: Dexa Spine and/or Hip INDICATIONS: POST MENOPAUSAL TECHNIQUE: Dual energy x-ray absorptiometry (DXA) was performed on a [employer]. Regions measur ed are the AP Spine, femoral neck, and if needed forearm. COMPARISON: None. FINDINGS: Lumbar Spine: Bone Mineral Density 1.163 g/cm/cm,T score -0.1, normal Left Hip: Bone Mineral Density 1.097 g/cm/cm,T score 0.7, normal Left Femoral Neck: Bone Mineral Density 0.881 g/cm/cm, T score -1.1, mild osteopenia (T score greater or equal to -1.0: NORMAL) (T score from -1.1 to -2.4: OSTEOPENIA) (T score less than or equal to -2.5 to: OSTEOPOROSIS) Impression: Mild osteopenia at the left femoral neck on targeted imaging. There is normal bone minera l density at the lumbosacral spine and the left hip region overall. Patients with diagnosis of osteoporosis or osteopenia should have regular bone mineral density assess ment. For those eligible for Medicare, routine testing is allowed once every 2 years. Testing frequ ency can be increased for patients who have rapidly progressing disease or for those who are receivin g medical therapy to restore bone mass. Reviewed by: Jovi Harrell MD on 11/27/2020 12:38 PM PDT Approved by: Jovi Harrell MD on 11/27/2020 12:38 PM PDT Station ID: [id number]
== END 2020-11-27 09:46 | disposition home or self-care (01) ==
LOC: DI 09:45
PROVIDERS: ATTEND Internal Medicine Hematology & Oncology
DX: M85.88 Other specified disorders of bone density and structure, other site (principal); E11.8 Type 2 diabetes mellitus with unspecified complications; C50.411 Malignant neoplasm of upper-outer quadrant of right female breast
CPT/HCPCS: 36415; 80053; 82306; 83036; 85025

== ENCOUNTER 2020-11-27 10:12 | Outpatient (CLI) | payer MEDICARE, OTHER ==
[2020-11-27 10:43] LABS: BASOPHILS % (AUTO) 0.5 %; EOSINOPHILS # (AUTO) 0.2 10^3/uL (0.0-0.7); EOSINOPHILS % (AUTO) 2.6 %; HCT - HEMATOCRIT 45.6 % (37.0-47.0); HGB - HEMOGLOBIN 15.2 g/dL (12.0-16.0); LYMPHOCYTES # (AUTO) 1.9 10^3/uL (1.5-3.5); LYMPHOCYTES % (AUTO) 24.3 %; MEAN CORPUSCULAR HEMOGLOBIN 29.5 pg (27.0-31.0); MEAN CORPUSCULAR HGB CONC 33.3 g/dL (32.0-36.0); MEAN CORPUSCULAR VOLUME 88.5 fL (81.0-99.0); MEAN PLATELET VOLUME 10.4 fL (7.9-10.8); MONOCYTES # (AUTO) 0.7 10^3/uL (0.0-1.0); NEUTROPHILS % (AUTO) 63.2 %; PLT - PLATELET COUNT 182 10^3/uL (130-450); RED BLOOD COUNT 5.15 10^6/uL (4.20-5.40); RED CELL DISTRIBUTION WIDTH 12.3 % (12.0-15.0); WHITE BLOOD COUNT 7.8 x10^3/uL (4.8-10.8)
[2020-11-27 10:55] LABS: ALBUMIN 3.9 g/dL (3.2-5.5); ALBUMIN/GLOBULIN RATIO 1.2 (1.0-2.2); BILIRUBIN,TOTAL 1.3 mg/dL (0.2-1.0); CALCIUM 9.3 mg/dL (8.5-10.3); CREATININE 0.4 mg/dL (0.4-1.0); POTASSIUM 3.6 mmol/L (3.5-5.0); TOTAL PROTEIN 7.1 g/dL (6.7-8.2)
[2020-11-27 11:00] LABS: ESTIMATED AVERAGE GLUCOSE 214 mg/dL (70-100); HEMOGLOBIN A1c% 9.1 % (4.27-6.07)
== END 2020-11-27 10:13 | disposition home or self-care (01) ==
LOC: LAB 10:12
PROVIDERS: ATTEND Physician Assistant Medical
DX: E11.8 Type 2 diabetes mellitus with unspecified complications (principal); C50.411 Malignant neoplasm of upper-outer quadrant of right female breast
CPT/HCPCS: 36415; 80053; 82306; 83036; 85025

== ENCOUNTER → 2021-03-16 | Outpatient (CLI) | payer MEDICARE, OTHER ==
[2021-03-16 12:32] LABS: CALCIUM 9.5 mg/dL (8.5-10.3); CREATININE 0.4 mg/dL (0.4-1.0); POTASSIUM 3.6 mmol/L (3.5-5.0)
[2021-03-16 12:44] LABS: ESTIMATED AVERAGE GLUCOSE 200 mg/dL (70-100); HEMOGLOBIN A1c% 8.6 % (4.27-6.07)
== END ==
LOC: LAB.WCP 09:05
PROVIDERS: ATTEND Physician Assistant Medical
DX: E11.8 Type 2 diabetes mellitus with unspecified complications (principal)
CPT/HCPCS: 36415; 80048; 83036

== ENCOUNTER 2021-03-22 08:00 | Outpatient (CLI) | payer MEDICARE, OTHER ==
[2021-03-22 17:48] LABS: BASOPHILS # (AUTO) 0.1 10^3/uL (0.0-0.1); BASOPHILS % (AUTO) 0.5 %; EOSINOPHILS # (AUTO) 0.2 10^3/uL (0.0-0.7); EOSINOPHILS % (AUTO) 1.9 %; HCT - HEMATOCRIT 45.9 % (37.0-47.0); HGB - HEMOGLOBIN 15.1 g/dL (12.0-16.0); LYMPHOCYTES # (AUTO) 2.4 10^3/uL (1.5-3.5); LYMPHOCYTES % (AUTO) 25.9 %; MEAN CORPUSCULAR HEMOGLOBIN 29.4 pg (27.0-31.0); MEAN CORPUSCULAR HGB CONC 32.9 g/dL (32.0-36.0); MEAN CORPUSCULAR VOLUME 89.3 fL (81.0-99.0); MEAN PLATELET VOLUME 10.9 fL (7.9-10.8); MONOCYTES # (AUTO) 0.8 10^3/uL (0.0-1.0); MONOCYTES % (AUTO) 8.4 %; NEUTROPHILS # (AUTO) 5.8 10^3/uL (1.5-6.6); NEUTROPHILS % (AUTO) 62.5 %; PLT - PLATELET COUNT 214 10^3/uL (130-450); RED BLOOD COUNT 5.14 10^6/uL (4.20-5.40); RED CELL DISTRIBUTION WIDTH 12.4 % (12.0-15.0); WHITE BLOOD COUNT 9.3 x10^3/uL (4.8-10.8)
[2021-03-22 18:41] LABS: THYROID STIMULATING HORMONE 3.23 uIU/mL (0.34-5.60)
[2021-03-22 18:48] LABS: FERRITIN 41.3 ng/mL (11.0-306.8)
== END 2021-03-22 23:59 | disposition home or self-care (01) ==
LOC: LAB.WCP 08:00
PROVIDERS: ATTEND Physician Assistant Medical
DX: R53.83 Other fatigue (principal); K62.5 Hemorrhage of anus and rectum; E04.1 Nontoxic single thyroid nodule
CPT/HCPCS: 36415; 82306; 82607; 82728; 84443; 85025

== ENCOUNTER 2021-06-12 08:00 | Outpatient (CLI) | payer MEDICARE, OTHER ==
[2021-06-12 11:37] LABS: BASOPHILS # (AUTO) 0.1 10^3/uL (0.0-0.1); BASOPHILS % (AUTO) 0.6 %; EOSINOPHILS # (AUTO) 0.2 10^3/uL (0.0-0.7); EOSINOPHILS % (AUTO) 2.3 %; HCT - HEMATOCRIT 46.5 % (37.0-47.0); HGB - HEMOGLOBIN 15.1 g/dL (12.0-16.0); LYMPHOCYTES # (AUTO) 2.5 10^3/uL (1.5-3.5); LYMPHOCYTES % (AUTO) 26.7 %; MEAN CORPUSCULAR HEMOGLOBIN 28.5 pg (27.0-31.0); MEAN CORPUSCULAR HGB CONC 32.5 g/dL (32.0-36.0); MEAN CORPUSCULAR VOLUME 87.9 fL (81.0-99.0); MEAN PLATELET VOLUME 10.8 fL (7.9-10.8); MONOCYTES # (AUTO) 0.7 10^3/uL (0.0-1.0); MONOCYTES % (AUTO) 7.8 %; NEUTROPHILS # (AUTO) 5.8 10^3/uL (1.5-6.6); NEUTROPHILS % (AUTO) 62.1 %; PLT - PLATELET COUNT 225 10^3/uL (130-450); RED BLOOD COUNT 5.29 10^6/uL (4.20-5.40); RED CELL DISTRIBUTION WIDTH 12.7 % (12.0-15.0); WHITE BLOOD COUNT 9.4 x10^3/uL (4.8-10.8)
[2021-06-12 12:07] LABS: MICROALBUM/CREATININE RATIO,UR 4.3 ug/mg (<30.0); MICROALBUMIN,URINE 0.2 mg/dL (0-300.0)
[2021-06-12 12:36] LABS: ALBUMIN 3.7 g/dL (3.2-5.5); ALBUMIN/GLOBULIN RATIO 1.1 (1.0-2.2); ALKALINE PHOSPHATASE 68 IU/L (42-121); ALT ALANINE AMINOTRANSFERASE 25 IU/L (10-60); AST ASPARTATE AMINOTRANSFERASE 20 IU/L (10-42); BILIRUBIN,TOTAL 1.2 mg/dL (0.2-1.0); BUN - BLOOD UREA NITROGEN 12 mg/dL (6-20); CARBON DIOXIDE - CO2 24 mmol/L (21-32); CHLORIDE 103 mmol/L (101-111); CHOL/HDL RATIO 3.7 (<4.4); CHOLESTEROL 131 mg/dL; CREATININE 0.5 mg/dL (0.4-1.0); GFR - MDRD 124 (>89); GLUCOSE 240 mg/dL (70-100); HDL CHOLESTEROL 35 mg/dL; LDL CHOLESTEROL,CALCULATED 66 mg/dL; LDL/HDL RATIO 1.9 (<4.4); SODIUM 137 mmol/L (135-145); TOTAL PROTEIN 7.1 g/dL (6.7-8.2); TRIGLYCERIDES 150 mg/dL; VLDL CHOLESTEROL 30 mg/dL
[2021-06-12 13:00] LABS: ESTIMATED AVERAGE GLUCOSE 186 mg/dL (70-100); HEMOGLOBIN A1c% 8.1 % (4.27-6.07)
== END 2021-06-12 23:59 | disposition home or self-care (01) ==
LOC: LAB.WCP 08:00
PROVIDERS: ATTEND Physician Assistant Medical
DX: E53.8 Deficiency of other specified B group vitamins (principal); E11.8 Type 2 diabetes mellitus with unspecified complications
CPT/HCPCS: 36415; 80053; 80061; 82043; 82570; 82607; 83036; 83721; 85025

== ENCOUNTER 2021-08-14 10:01 | Outpatient (CLI) | payer MEDICARE, OTHER ==
[2021-08-14 13:10] LABS: CHOL/HDL RATIO 4.3 (<4.4); CHOLESTEROL 136 mg/dL; HDL CHOLESTEROL 32 mg/dL; LDL CHOLESTEROL,CALCULATED 65 mg/dL; TRIGLYCERIDES 194 mg/dL; VLDL CHOLESTEROL 39 mg/dL
== END 2021-08-14 10:02 | disposition home or self-care (01) ==
LOC: LAB.N 10:01
PROVIDERS: ATTEND Internal Medicine Cardiovascular Disease
DX: I25.10 Atherosclerotic heart disease of native coronary artery without angina pectoris (principal); E78.00 Pure hypercholesterolemia, unspecified
CPT/HCPCS: 36415; 80061; 83721

== ENCOUNTER 2021-09-11 11:01 | Outpatient (CLI) | payer MEDICARE, OTHER ==
[2021-09-11 19:11] LABS: ALBUMIN 3.7 g/dL (3.2-5.5); ALBUMIN/GLOBULIN RATIO 1.2 (1.0-2.2); ALKALINE PHOSPHATASE 54 IU/L (42-121); ALT ALANINE AMINOTRANSFERASE 22 IU/L (10-60); AST ASPARTATE AMINOTRANSFERASE 25 IU/L (10-42); BUN - BLOOD UREA NITROGEN 10 mg/dL (6-20); CALCIUM 9.4 mg/dL (8.5-10.3); CARBON DIOXIDE - CO2 24 mmol/L (21-32); CHLORIDE 105 mmol/L (101-111); CHOL/HDL RATIO 3.7 (<4.4); CHOLESTEROL 123 mg/dL; CREATININE 0.5 mg/dL (0.4-1.0); GFR - MDRD 124 (>89); GLUCOSE 132 mg/dL (70-100); HDL CHOLESTEROL 33 mg/dL; LDL CHOLESTEROL,CALCULATED 60 mg/dL; LDL/HDL RATIO 1.8 (<4.4); SODIUM 138 mmol/L (135-145); TOTAL PROTEIN 6.9 g/dL (6.7-8.2); TRIGLYCERIDES 149 mg/dL; VLDL CHOLESTEROL 30 mg/dL
[2021-09-11 20:03] LABS: ESTIMATED AVERAGE GLUCOSE 183 mg/dL (70-100)
== END 2021-09-11 11:02 | disposition home or self-care (01) ==
LOC: LAB.N 11:01
PROVIDERS: ATTEND Physician Assistant Medical
DX: E11.8 Type 2 diabetes mellitus with unspecified complications (principal)
CPT/HCPCS: 36415; 80053; 80061; 83036; 83721

== ENCOUNTER 2021-11-29 06:48 | Day surgery (SDC) | payer MEDICARE, OTHER ==
[~2021-11-29 06:48] MED LIST: CYCLOPENTOLATE 1% OPHTH DROPS 2 ML ONE; KETOROLAC 0.45% OPHTH DROPS ONE; PHENYLEPHRINE 2.5% OPHTH 2 ML DROPS ONE; PROPARACAINE 0.5% OPHTH DROPS 15 ML ONE
[2021-11-29] MEDS ORDERED: LACTATED RINGERS 1,000 ML IV ONE (07:22)
--- NOTE | 2021-11-29 07:33 | ANESTHESIA ---
Pre-Anesthesia VS, & Labs - Diagnosis right eye senile combined cataract - Procedure right eye cataract extraction with IOL implant Vital Signs: Temp Pulse Resp BP Pulse Ox 37.0 C 63 16 135/76 H 94 11/29/21 07:08 11/29/21 07:08 11/29/21 07:08 11/29/21 07:08 11/29/21 07:08 Height: 5 ft 5 in Weight (kg): 95 kg Body Mass Index: 34.8 BMI Classification: Obese - NPO >8 hours - Is Patient ?: No - Lab Results Current Lab Results: Laboratory Tests 11/29/21 07:16: POC Whole Bld Glucose 168 H Lab results reviewed: Yes Home Medications and Allergies Home Medications: Ambulatory Orders Dulaglutide [Trulicity] 0.75 mg SQ ONCE 11/28/21 Gabapentin [Neurontin] 300 mg PO DAILY 11/28/21 Gabapentin [Neurontin] 600 mg PO HS 11/28/21 Pantoprazole Sodium [Protonix] 20 mg PO BID 11/28/21 Atorvastatin Calcium 40 mg PO QPM 02/24/19 Empagliflozin [Jardiance] 25 mg PO DAILY 02/24/19 Metformin HCl 500 mg PO BID 02/24/19 Sertraline HCl 50 mg PO DAILY 02/24/19 Losartan Potassium [Cozaar] 50 mg PO DAILY 11/16/19 Aspirin [Aspirin EC] 81 mg PO DAILY 08/31/20 Benzonatate [Tessalon] 100 - 200 mg PO TID PRN 08/31/20 Cyclobenzaprine [Flexeril] 10 mg PO TID PRN 08/31/20 Insulin Glargine [Lantus Solostar] 30 unit SQ QDBREAKFAST 08/31/20 Levothyroxine [Synthroid] 75 mcg PO QDAC 08/31/20 Nitroglycerin [Nitrostat] 0.4 mg SL Q5MIN PRN 08/31/20 Insulin Glargine [Lantus Solostar] 20 units SQ HS 09/08/20 Ergocalciferol [Vitamin D2] 50,000 units PO UD 12/08/20 Dulaglutide [Trulicity] 0.75 mg SQ ONCE 11/28/21 Gabapentin [Neurontin] 300 mg PO DAILY 11/28/21 Gabapentin [Neurontin] 600 mg PO HS 11/28/21 Pantoprazole Sodium [Protonix] 20 mg PO BID 11/28/21 Allergies/Adverse Reactions: Allergies Allergy/AdvReac Type Severity Reaction Status Date / Time Opioids - Morphine Analogues AdvReac Intermediate Emesis/Itch Verified 12/08/20 10:03 ing codeine AdvReac projectile Verified 12/08/20 10:03 vomiting duloxetine AdvReac Nausea Verified 12/08/20 10:03 niacin AdvReac Itching Verified 12/08/20 10:03 propoxyphene [From Darvon] AdvReac Itching Verified 12/08/20 10:03 Anes History & Medical History - Anesthetic History Anesthesia Complications: reports: Post-Operative Nausea/Vomiting - Medical History Cardiovascular: reports: Hypertension, High cholesterol, Coronary artery disease, Angina, [place] (stents x3. Last one placed in may) Pulmonary: reports: Sleep apnea (does not use cpap), Other Gastrointestinal: reports: GERD, Hiatal hernia, Other Urinary: reports: Nocturia, Frequency Neuro: reports: None Musculoskeletal: reports: Osteoarthritis, Fibromyalgia, Fatigue, Chronic back pain, Other Endocrine/Autoimmune: reports: Type 2 diabetes Blood Disorders: reports: None Skin: reports: None Smoking Status: Former smoker (quit 2002) Psychosocial: reports: Depression, Anxiety, Other (ptsd) History of Cancer?: Yes (lung, thyroid and breast s/p radiation chest/thyroid) - Surgical History General: reports: Colonoscopy, Other Eyes Ears Nose Throat (EENT): Cardiothoracic: reports: Coronary stent, Lobectomy (lower right lobe 2010) Gynecologic: reports: section, Hysterectomy Orthopedic: reports: Other Results - EKG Results EKG Comparison: Reviewed EKG Exam General: Alert, Oriented x3, Cooperative, No acute distress Dental: Dentures full Upper Mouth Openin Fingerbreadth Neck Mobility: Normal Mallampati classification: III Thyromental Distance: 4-6 cm Mental/Cognitive Status: Alert/Oriented X3, Normal for patient Plan Anesthesia Type: MAC Consent for Procedure(s) Verified and Reviewed: Yes Code Status: Attempt Resuscitation ASA classification: 3-Severe systemic disease Is this case an emergency?: No
[2021-11-29] MEDS ORDERED: MIDAZOLAM 2 MG/2 ML VIAL ONE (08:01)
[2021-11-29] MEDS ORDERED: fentaNYL 100 MCG/2 ML VIAL ONE (08:14)
[2021-11-29] MEDS ORDERED: BRIMONIDINE 0.2% OPHTH DROPS 5 ML OPTH ONE (08:16)
[2021-11-29] MEDS ORDERED: EPINEPHrine 1 MG/ML AMP IR ONE (08:16)
[2021-11-29] MEDS ORDERED: TRIAMCIN/MOXIFLOX OPHTHALMIC 0.6 ML VIAL IO ONE (08:17)
[2021-11-29] MEDS ORDERED: BSS/LIDOCAINE/EPINEPHRINE 1 ML SYRINGE IO ONE (08:17)
[2021-11-29] MEDS ORDERED: PROPARACAINE 0.5% OPHTH DROPS 15 ML EACHEYE ONE (08:17)
[2021-11-29] MEDS ORDERED: TIMOLOL 0.5% OPHTH DROPS OPTH ONE (08:17)
[2021-11-29] MEDS ORDERED: VANCOMYCIN OPHTHALMI 8MG/0.8ML 8 MG/0.8 ML SYRINGE IO ONE (08:18)
[2021-11-29] MEDS ORDERED: LACTATED RINGERS 800 ML IV ONE (08:33)
--- NOTE | 2021-11-29 08:39 | OPERATIVE REPORT ---
Operative Report - Other Other Information/Narrative: Date of Surgery: 11/29/21 Preop Dx: Visually significant cataract right eye. This was the first cataract surgery. Postop Dx: Same Procedure: Phacoemulsification with posterior chamber intraocular lens implant right eye Surgeon: Dr. Chip Rubio Anesthesia: Monitored anesthesia care Complications: None Operative Indications: This is a 66-year-old F with progressive vision loss in the right eye due to 2+ nuclear sclerotic, 2-3+ cortical, and 2+ posterior subcapsular cataract. Best corrected visual acuity was 20/60 with glare to 20/400 vision in the right eye. Indications for surgery were: - Overall decrease in vision - Difficulty seeing words on a computer screen - Difficulty reading - Difficulty seeing words, closed captions, or game scores on TV - Difficulty seeing street signs - Difficulty driving in low light or at night - Difficulty driving at night because of headlights from other vehicles - Difficulty with glare or bright lights in any situation - Difficulty tracking a golf ball The patient was consented at length concerning the risks and benefits of cataract surgery after which the patient expressed a desire to proceed with surgery. Operative Procedure: The patient was taken into OR#3 and placed under monitored anesthesia care. A surgical time-out was conducted confirming correct patient, correct procedure, and correct surgical site. The patient was given topical anesthesia and then prepped and draped in the usual sterile fashion. The eye was entered at the 6 and 3 oclock positions. Intracameral Shugarcaine was injected into the anterior chamber followed by a dispersive viscoelastic. A continuous-tear curvilinear capsulorhexis was performed. The nucleus was hydrodissected and phacoemulsified. The cortex was evacuated using automated infusion and aspiration. A cohesive viscoelastic was injected into the capsular bag and a 19.5 diopter intraocular lens was inserted into the bag. Infusion and aspiration were used to evacuate the viscoelastic materials from the eye. The wounds were hydrated and the eye inflated to physiologic pressure using balanced salt solution. Approximately 0.25ml of a mixture of triamcinolone and moxifloxacin was injected trans-sclerally into the vitreous in the infero temporal quadrant using a 30 gauge cannula. An additional 0.55ml of a mixture of triamcinolone, moxifloxacin, and vancomycin was injected subconjunctivally in the superior quadrant for infection and inflammation prophylaxis. Wound integrity was checked with Weck-Micheline sponges. The patient was taken from the operating room in good condition and given post-op instructions.
[2021-11-29 09:22] VITALS: BP 132/68
--- NOTE | 2021-11-29 14:53 | ANESTHESIA POST OP EVALUATION ---
Anesthesia Post Eval - Post Anesthesia Eval Vitals: Last Vital Signs Temp 36.2 C L 11/29/21 09:05 Pulse 68 11/29/21 09:05 Resp 17 11/29/21 09:05 BP 132/68 H 11/29/21 09:05 Pulse Ox 94 11/29/21 09:05 CV Function Including HR & BP: Stable Pain Control: Satisfactory Nausea & Vomiting: Negative Mental Status: Baseline Respiratory Status: Airway Patent Hydration Status: Satisfactory Anesthesia Complications: None
== END 2021-11-29 06:49 | disposition home or self-care (01) ==
LOC: SDS 06:48
PROVIDERS: ATTEND Ophthalmology
DX: E11.36 Type 2 diabetes mellitus with diabetic cataract (principal); H25.811 Combined forms of age-related cataract, right eye; F41.9 Anxiety disorder, unspecified; Z79.84 Long term (current) use of oral hypoglycemic drugs; Z87.891 Personal history of nicotine dependence; F43.10 Post-traumatic stress disorder, unspecified; G47.30 Sleep apnea, unspecified; I25.10 Atherosclerotic heart disease of native coronary artery without angina pectoris; I25.2 Old myocardial infarction
CPT/HCPCS: 66984; A9270; J3490; J7120

== ENCOUNTER 2021-12-11 10:51 | Outpatient (CLI) | payer MEDICARE, OTHER ==
[2021-12-11 17:45] LABS: BASOPHILS # (AUTO) 0.1 10^3/uL (0.0-0.1); BASOPHILS % (AUTO) 0.8 %; EOSINOPHILS # (AUTO) 0.2 10^3/uL (0.0-0.7); HCT - HEMATOCRIT 47.8 % (37.0-47.0); HGB - HEMOGLOBIN 15.1 g/dL (12.0-16.0); LYMPHOCYTES % (AUTO) 22.1 %; MEAN CORPUSCULAR HGB CONC 31.6 g/dL (32.0-36.0); MEAN CORPUSCULAR VOLUME 88.7 fL (81.0-99.0); MEAN PLATELET VOLUME 11.3 fL (7.9-10.8); MONOCYTES # (AUTO) 0.6 10^3/uL (0.0-1.0); MONOCYTES % (AUTO) 6.1 %; NEUTROPHILS # (AUTO) 6.3 10^3/uL (1.5-6.6); NEUTROPHILS % (AUTO) 68.7 %; PLT - PLATELET COUNT 240 10^3/uL (130-450); RED BLOOD COUNT 5.39 10^6/uL (4.20-5.40); RED CELL DISTRIBUTION WIDTH 12.9 % (12.0-15.0); WHITE BLOOD COUNT 9.2 x10^3/uL (4.8-10.8)
[2021-12-11 17:56] LABS: ALBUMIN/GLOBULIN RATIO 1.2 (1.0-2.2); BILIRUBIN,TOTAL 0.8 mg/dL (0.2-1.0); CALCIUM 9.5 mg/dL (8.5-10.3); CREATININE 0.5 mg/dL (0.4-1.0); POTASSIUM 4.2 mmol/L (3.5-5.0); TOTAL PROTEIN 7.4 g/dL (6.7-8.2)
[2021-12-11 18:13] LABS: THYROID STIMULATING HORMONE 1.76 uIU/mL (0.34-5.60)
[2021-12-11 21:00] LABS: ESTIMATED AVERAGE GLUCOSE 174 mg/dL (70-100); HEMOGLOBIN A1c% 7.7 % (4.27-6.07)
== END 2021-12-11 10:52 | disposition home or self-care (01) ==
LOC: LAB.N 10:51
PROVIDERS: ATTEND Physician Assistant Medical
DX: E11.8 Type 2 diabetes mellitus with unspecified complications (principal); E53.8 Deficiency of other specified B group vitamins; E03.9 Hypothyroidism, unspecified
CPT/HCPCS: 36415; 80053; 82607; 83036; 84443; 85025

== ENCOUNTER 2022-02-27 07:22 | Outpatient (CLI) | payer MEDICARE, OTHER ==
--- NOTE | 2022-02-27 11:38 | MRI Report ---
PROCEDURE: Knee RT W/O INDICATIONS: RIGHT KNEE PAIN TECHNIQUE: Noncontrast sagittal PD fast spin echo and T2 fast spin echo with fat saturation, sagittal 3-D spoile d GE with fat saturation; coronal T1 spin echo and PD fast spin echo with fat saturation, and axial P D fast spin echo with fat saturation through the knee. COMPARISON: Right knee radiographs 01/28/2022 FINDINGS: Image quality: Excellent. Anterior cruciate ligament: Intact. Posterior cruciate ligament: Intact. Medial collateral ligament: Intact. Lateral collateral ligament: Intact. Medial meniscus: There is suspected horizontal oblique tearing of the posterior horn and body of the medial meniscus extending to the inner third of the tibial articular surface. Lateral meniscus: Intact. Medial and lateral tendons: The semimembranosus tendon insertions appear intact. Visualized portion s of the pes anserinus tendons appear normal. The popliteus tendon appears intact. Iliotibial band appears normal. Anterior structures: A distal quadriceps enthesophyte is present. There is mild quadriceps and briscoe lar tendinosis. Patellar alignment is normal. No femoral trochlear dysplasia or ventral trochlear pr ominence. No edema in the infrapatellar fat pad. Bones: No acute trabecular bone injury or fracture. Medial femorotibial cartilage: There is high-grade and full thickness cartilage loss at the central weightbearing portion of the medial femoral condyle and high-grade partial thickness cartilage irregu larity at the adjacent medial tibial plateau. Lateral femorotibial cartilage: Deep cartilage fissuring is seen in the central portion of the later al tibial plateau. Patellofemoral cartilage: Full-thickness cartilage loss is seen in the medial patellar facet and the medial femoral trochlea and trochlear groove. Additional areas of partial-thickness cartilage loss a re seen in the anterior compartment. Soft tissues: There is a medium-sized joint effusion. There is a trace medial popliteal cyst. The m usculature surrounding the knee demonstrates mild generalized ventricular infiltration. A lobular cys t is seen posterior to the medial tibial plateau measuring up to 4.3 x 2.0 x 1.2 cm, most likely a ga nglion cyst versus less likely a parameniscal cyst. Additional pericapsular ganglion cyst posterior t o the intercondylar notch measuring 1.8 x 1.2 x 1.1 cm. Smaller ganglion cysts are seen adjacent to t he origins of the medial and lateral heads of the gastrocnemius muscle. IMPRESSION: 1.Tricompartmental osteoarthrosis with areas of full-thickness cartilage loss in the medial and anter ior compartments. There is deep cartilage fissuring in the lateral compartment. Tricompartmental karol inal osteophytes are present. 2.Horizontal oblique tearing of the posterior horn and body of medial meniscus extending to the inner third of the tibial articular surface. 3.Mild distal quadriceps and proximal patellar tendinosis. 4.Moderate joint effusion. 5.Multiple ganglion cyst posterior to the knee, the largest of which is located posterior to the medi al tibial plateau and measures up to 4.3 cm in maximum dimension. Reviewed by: Artem Gil MD on 02/27/2022 11:36 AM PDT Approved by: Artem Gil MD on 02/27/2022 11:36 AM PDT Station ID: [id number]
== END 2022-02-27 07:23 | disposition home or self-care (01) ==
LOC: DI 07:22
PROVIDERS: ATTEND Physician Assistant Medical
DX: M17.11 Unilateral primary osteoarthritis, right knee (principal); M94.261 Chondromalacia, right knee; S83.241A Other tear of medial meniscus, current injury, right knee, initial encounter; M67.863 Other specified disorders of tendon, right knee; M25.461 Effusion, right knee; M67.461 Ganglion, right knee

== ENCOUNTER 2022-04-03 08:00 | Outpatient (CLI) | payer MEDICARE, OTHER | END 2022-04-03 23:59 | disposition home or self-care (01) | LOC: LAB.N 08:00 | PROVIDERS: ATTEND Physician Assistant Medical | DX: R05.9 Cough, unspecified (principal); Z20.822 Contact with and (suspected) exposure to COVID-19 ==

== ENCOUNTER 2022-04-03 11:17 | Outpatient (CLI) | payer MEDICARE, OTHER ==
[2022-04-03 11:33] LABS: BASOPHILS # (AUTO) 0.1 10^3/uL (0.0-0.1); BASOPHILS % (AUTO) 0.6 %; EOSINOPHILS # (AUTO) 0.2 10^3/uL (0.0-0.7); EOSINOPHILS % (AUTO) 1.9 %; HCT - HEMATOCRIT 46.3 % (37.0-47.0); HGB - HEMOGLOBIN 15.2 g/dL (12.0-16.0); LYMPHOCYTES % (AUTO) 29.8 %; MEAN CORPUSCULAR HEMOGLOBIN 28.3 pg (27.0-31.0); MEAN CORPUSCULAR HGB CONC 32.8 g/dL (32.0-36.0); MEAN CORPUSCULAR VOLUME 86.1 fL (81.0-99.0); MONOCYTES # (AUTO) 0.8 10^3/uL (0.0-1.0); MONOCYTES % (AUTO) 7.7 %; NEUTROPHILS % (AUTO) 59.6 %; PLT - PLATELET COUNT 214 10^3/uL (130-450); RED BLOOD COUNT 5.38 10^6/uL (4.20-5.40); RED CELL DISTRIBUTION WIDTH 13.2 % (12.0-15.0)
[2022-04-03] MEDS ORDERED: DIATRIZOATE MEGLU/DIATRIZO SOD 30 ML BOTTLE PO ONE ×2 (11:50→17:59)
[2022-04-03] MEDS ORDERED: iohexoL-300 100 ML VIAL ONE (11:50)
[2022-04-03 12:03] LABS: ALBUMIN 3.9 g/dL (3.2-5.5); ALBUMIN/GLOBULIN RATIO 1.3 (1.0-2.2); BILIRUBIN,TOTAL 1.5 mg/dL (0.2-1.0); CALCIUM 9.8 mg/dL (8.5-10.3); CREATININE 0.5 mg/dL (0.4-1.0); POTASSIUM 3.2 mmol/L (3.5-5.0)
--- NOTE | 2022-04-03 14:22 | CT Report ---
PROCEDURE: ABDOMEN/PELVIS W INDICATIONS: LEFT LOWER QUAD ABD PAIN CONTRAST: 100ml Omnipaque 300 TECHNIQUE: After the administration of IV contrast, 5 mm thick sections acquired from the diaphragms to the symp hysis. 5 mm thick coronal and sagittal reformats were acquired. For radiation dose reduction, the f ollowing was used: automated exposure control, adjustment of mA and/or kV according to patient size. COMPARISON: 08/18/2019 FINDINGS: Image quality: Excellent. ABDOMEN: Lung bases: Lung bases are clear. Heart size is normal. Very heavy coronary artery calcification. Partially imaged calcifications in the right hilar region, probably remote granulomatous disease. Solid organs: The liver is slightly enlarged and slightly hypodense. There is an indistinct hypodensi ty in segment 5, and probably a hemangioma or ill-defined cyst. A cyst was noted in this location pre viously. No new liver mass. Gallbladder has a normal wall thickness and contains a few punctate calci fications layering dependently near the neck. The biliary tree is nondilated. The pancreas, spleen, a drenal glands, and kidneys appear normal. Subcentimeter, stable right upper pole cortical renal cyst. Peritoneum and bowel: Bowel loops demonstrate normal wall thickness and caliber. The descending and sigmoid colon are diffusely decompressed and there is no evidence of left lower quadrant inflammation . The stomach is normal. No free fluid or air. Nodes and vessels: No retroperitoneal or mesenteric adenopathy by size criteria. Aorta and inferior vena cava are normal in size. Moderate calcific atherosclerotic disease. Miscellaneous: No ventral hernias. PELVIS: Genitourinary: The urinary bladder is decompressed. The bladder wall thickness is appropriate. The ut erus is surgically absent. Ovarian tissue is not identified. No adnexal masses or fluid collections. Miscellaneous: No inguinal hernias or adenopathy. Bones: No suspicious bony lesions. No vertebral body compression fractures. IMPRESSION: 1. No CT evidence of acute process. 2. Mild hepatomegaly and hepatic steatosis, chronic. 3. Hysterectomy. No suspicious pelvic mass or fluid collection. Reviewed by: Sasha Kumar MD on 04/03/2022 1:21 PM JESS Approved by: Sasha Kumar MD on 04/03/2022 1:21 PM AKDT Station ID: [id number]
[2022-04-03] MEDS ORDERED: iohexoL-300 100 ML VIAL IVP ONE (18:00)
== END 2022-04-03 11:18 | disposition home or self-care (01) ==
LOC: LAB 11:17
PROVIDERS: ATTEND Physician Assistant Medical
DX: R10.32 Left lower quadrant pain (principal); R05.9 Cough, unspecified; Z20.822 Contact with and (suspected) exposure to COVID-19; K76.0 Fatty (change of) liver, not elsewhere classified; R16.0 Hepatomegaly, not elsewhere classified; Z90.79 Acquired absence of other genital organ(s)
CPT/HCPCS: 36415; 74177; 80053; 83690; 85025; Q9963; Q9967; U0004

== ENCOUNTER 2022-05-03 12:51 | Emergency (ER) | payer MEDICARE, OTHER ==
[2022-05-03 14:25] LABS: BASOPHILS # (AUTO) 0.1 10^3/uL (0.0-0.1); BASOPHILS % (AUTO) 0.6 %; EOSINOPHILS # (AUTO) 0.2 10^3/uL (0.0-0.7); HCT - HEMATOCRIT 46.7 % (37.0-47.0); HGB - HEMOGLOBIN 15.1 g/dL (12.0-16.0); LYMPHOCYTES # (AUTO) 2.3 10^3/uL (1.5-3.5); MEAN CORPUSCULAR HEMOGLOBIN 27.9 pg (27.0-31.0); MEAN CORPUSCULAR HGB CONC 32.3 g/dL (32.0-36.0); MEAN CORPUSCULAR VOLUME 86.3 fL (81.0-99.0); MEAN PLATELET VOLUME 10.6 fL (7.9-10.8); MONOCYTES # (AUTO) 0.6 10^3/uL (0.0-1.0); MONOCYTES % (AUTO) 7.1 %; NEUTROPHILS # (AUTO) 5.4 10^3/uL (1.5-6.6); NEUTROPHILS % (AUTO) 62.8 %; PLT - PLATELET COUNT 209 10^3/uL (130-450); RED BLOOD COUNT 5.41 10^6/uL (4.20-5.40); RED CELL DISTRIBUTION WIDTH 12.9 % (12.0-15.0); WHITE BLOOD COUNT 8.6 x10^3/uL (4.8-10.8)
[2022-05-03 14:38] LABS: ALBUMIN 3.7 g/dL (3.2-5.5); ALBUMIN/GLOBULIN RATIO 1.1 (1.0-2.2); BILIRUBIN,TOTAL 0.9 mg/dL (0.2-1.0); CALCIUM 9.6 mg/dL (8.5-10.3); CREATININE 0.4 mg/dL (0.4-1.0); POTASSIUM 4.1 mmol/L (3.5-5.0); TOTAL PROTEIN 7.1 g/dL (6.7-8.2)
--- NOTE | 2022-05-03 15:40 | ED Physician Documentation ---
History of Present Illness - Stated complaint Stated Complaint: IRREGULAR BP - Chief complaint Chief Complaint: General - History obtained from History obtained from: Patient - Additonal information Additional information: 67-year-old woman with history of multiple types of cancer and recent diagnosis of likely stage I left lung cancer earlier this week has noted labile blood pressures. She usually has a history of high blood pressure, we do not know what her current medications are as she does not have a current list with her, but the most recent list notes that she is on losartan 50 mg a day. She has a headache, tired and fatigued. She is here for labile blood pressures and for the most part her blood pressures are in the 1 teens over 60s but does note a single reading of 97/60. She denies diarrhea. She is drinking plenty of water. No chest pain or trouble breathing. Review of Systems Constitutional: reports: Fatigue. denies: Fever, Chills Cardiac: denies: Chest pain / pressure, Palpitations Respiratory: denies: Dyspnea PD PAST MEDICAL HISTORY - Past Medical History Cardiovascular: Hypertension, High cholesterol, Coronary artery disease, Angina, [place] (Multiple heart attacks, last one in 2020, post stent placement) Respiratory: Sleep apnea, Other Neuro: None Endocrine/Autoimmune: Type 2 diabetes, HyPERthyroidism GI: GERD, Hiatal hernia, Other RESERVES CLERK: None : Nocturia, Frequency HEENT: Chronic vision loss, Other Psych: Depression, Anxiety, Post traumatic stress disorder, Claustrophobia Musculoskeletal: Osteoarthritis, Fibromyalgia, Fatigue, Chronic back pain, Other Derm: None - Past Surgical History Past Surgical History: Yes General: Colonoscopy, Other Ortho: Other /RESERVES CLERK: section, Hysterectomy Cardiovascular: Coronary stent, Lobectomy HEENT:  - Present Medications Home Medications: Ambulatory Orders Medication Instructions Recorded Confirmed Atorvastatin Calcium 40 mg PO QPM 02/24/19 03/04/22 Empagliflozin [Jardiance] 25 mg PO DAILY 02/24/19 03/04/22 Metformin HCl 500 mg PO BID 02/24/19 03/04/22 Sertraline HCl 50 mg PO DAILY 02/24/19 03/04/22 Losartan Potassium [Cozaar] 50 mg PO DAILY 11/16/19 03/04/22 Aspirin [Aspirin EC] 81 mg PO DAILY 08/31/20 03/04/22 Benzonatate [Tessalon] 100 - 200 mg PO TID PRN 08/31/20 03/04/22 Insulin Glargine [Lantus Solostar] 30 unit SQ QDBREAKFAST 08/31/20 03/04/22 Levothyroxine [Synthroid] 75 mcg PO QDAC 08/31/20 03/04/22 Nitroglycerin [Nitrostat] 0.4 mg SL Q5MIN PRN 08/31/20 03/04/22 Insulin Glargine [Lantus Solostar] 20 units SQ HS 09/08/20 03/04/22 Ergocalciferol [Vitamin D2] 50,000 units PO DAILY 12/08/20 03/04/22 Dulaglutide [Trulicity] 0.75 mg SQ ONCE 11/28/21 03/04/22 Gabapentin [Neurontin] 600 mg PO DAILY 11/28/21 03/04/22 Gabapentin [Neurontin] 900 mg PO HS 11/28/21 03/04/22 Pantoprazole Sodium [Protonix] 20 mg PO BID 11/28/21 03/04/22 - Allergies Allergies/Adverse Reactions: Allergies Allergy/AdvReac Type Severity Reaction Status Date / Time Opioids - Morphine Analogues AdvReac Intermediate Emesis/Itch Verified 01/30/22 12:31 ing codeine AdvReac projectile Verified 01/30/22 12:31 vomiting duloxetine AdvReac Nausea Verified 01/30/22 12:31 niacin AdvReac Itching Verified 01/30/22 12:31 propoxyphene [From Darvon] AdvReac Itching Verified 01/30/22 12:31 - Social History Does the pt smoke?: No Smoking Status: Former smoker (quit 2002) Does the pt drink ETOH?: No Does the pt have substance abuse?: No - Immunizations Immunizations are current?: Yes - POLST Patient has POLST: No POLST Status: Full Code PD ED PE NORMAL - Vitals Vital signs reviewed: Yes - General General: Alert and oriented X 3, No acute distress - HEENT HEENT: PERRL, EOMI - Neck Neck: Supple, no meningeal sign, No bony TTP - Cardiac Cardiac: RRR, No murmur - Respiratory Respiratory: No respiratory distress, Clear bilaterally - Abdomen Abdomen: Normal bowel sounds, Soft, Non tender - Back Back: No CVA TTP, No spinal TTP - Derm Derm: Normal color, Warm and dry - Extremities Extremities: No edema, No calf tenderness / cord - Neuro Neuro: Alert and oriented X 3, Normal speech Results - Vitals Vitals: Vital Signs - 24 hr 05/03/22 14:06 Temperature 97.8 C H Heart Rate 66 Respiratory 16 Rate Blood Pressure 116/66 O2 Saturation 96 Oxygen O2 Source Room air - Labs Labs: Laboratory Tests 05/03/22 05/03/22 14:20 14:20 WBC 8.6 RBC 5.41 H Hgb 15.1 Hct 46.7 MCV 86.3 MCH 27.9 MCHC 32.3 RDW 12.9 Plt Count 209 MPV 10.6 Neut # (Auto) 5.4 Lymph # (Auto) 2.3 [place] # (Auto) 0.6 Eos # (Auto) 0.2 Baso # (Auto) 0.1 Absolute Nucleated RBC 0.00 Nucleated RBC % 0.0 Sodium 139 Potassium 4.1 Chloride 106 Carbon Dioxide 24 Anion Gap 9.0 BUN 8 Creatinine 0.4 Estimated GFR (MDRD) 160 Glucose 162 H Calcium 9.6 Total Bilirubin 0.9 AST 22 ALT 20 Alkaline Phosphatase 64 Total Protein 7.1 Albumin 3.7 Globulin 3.4 Albumin/Globulin Ratio 1.1 Lipase 29 PD MEDICAL DECISION MAKING - ED course ED course: 67-year-old woman with lower than normal blood pressures for her with normal exam and labs, she has a recent diagnosis of lung cancer but per her description this was being monitored with serial CTs so is likely stage I, she does not yet have a Tissue diagnosis or PET/CT. We think she is on losartan at a dose of 50 mg a day and she is encouraged to halve this. I also encouraged her to keep a med list with her so that at future appointments we are able to current ascert ain her current medications. Departure - Departure Disposition: 01 Home, Self Care Clinical Impression: Labile blood pressure Condition: Good Record reviewed to determine appropriate education?: Yes Comments: The most recent medication list we have for you shows that you are taking losartan 50 mg a day. You can cut this in half. Return for new or worsening symptoms, follow-up with your primary care physician this coming week for recheck. As discussed, I recommend either bringing your medications with you to all physician and hospital encounters or at least having an up-to-date list with you.
[2022-05-03 15:51] VITALS: BP 125/76
== END 2022-05-03 15:51 | disposition home or self-care (01) ==
LOC: ED 12:51
DX: I95.9 Hypotension, unspecified (principal); R09.89 Other specified symptoms and signs involving the circulatory and respiratory systems; R53.83 Other fatigue; R51.9 Headache, unspecified; C34.92 Malignant neoplasm of unspecified part of left bronchus or lung; Z87.891 Personal history of nicotine dependence; I10 Essential (primary) hypertension; I25.10 Atherosclerotic heart disease of native coronary artery without angina pectoris; I25.2 Old myocardial infarction; Z95.5 Presence of coronary angioplasty implant and graft; E11.9 Type 2 diabetes mellitus without complications; Z79.4 Long term (current) use of insulin; Z79.85 Long-term (current) use of injectable non-insulin antidiabetic drugs; Z79.84 Long term (current) use of oral hypoglycemic drugs; Z79.899 Other long term (current) drug therapy
CPT/HCPCS: 36415; 80053; 83690; 85025; 99282; 99283

== ENCOUNTER 2023-04-18 08:48 | Outpatient (CLI) | payer MEDICARE, OTHER ==
[2023-04-18 12:28] LABS: BASOPHILS % (AUTO) 0.5 %; EOSINOPHILS # (AUTO) 0.2 10^3/uL (0.0-0.7); EOSINOPHILS % (AUTO) 1.8 %; HCT - HEMATOCRIT 46.3 % (37.0-47.0); LYMPHOCYTES # (AUTO) 2.5 10^3/uL (1.5-3.5); LYMPHOCYTES % (AUTO) 29.1 %; MEAN CORPUSCULAR HEMOGLOBIN 28.2 pg (27.0-31.0); MEAN CORPUSCULAR HGB CONC 32.4 g/dL (32.0-36.0); MEAN PLATELET VOLUME 11.4 fL (7.9-10.8); MONOCYTES # (AUTO) 0.7 10^3/uL (0.0-1.0); MONOCYTES % (AUTO) 7.8 %; NEUTROPHILS # (AUTO) 5.1 10^3/uL (1.5-6.6); NEUTROPHILS % (AUTO) 60.4 %; PLT - PLATELET COUNT 229 10^3/uL (130-450); RED BLOOD COUNT 5.32 10^6/uL (4.20-5.40); RED CELL DISTRIBUTION WIDTH 13.2 % (12.0-15.0); WHITE BLOOD COUNT 8.4 x10^3/uL (4.8-10.8)
[2023-04-18 12:40] LABS: ESTIMATED AVERAGE GLUCOSE 157 mg/dL (70-100); HEMOGLOBIN A1c% 7.1 % (4.27-6.07)
[2023-04-18 12:42] LABS: ALBUMIN/GLOBULIN RATIO 1.5 (1.0-2.2); BILIRUBIN,TOTAL 1.1 mg/dL (0.2-1.0); CALCIUM 9.6 mg/dL (8.5-10.3); CREATININE 0.4 mg/dL (0.6-1.3); POTASSIUM 3.5 mmol/L (3.5-4.5); TOTAL PROTEIN 6.7 g/dL (6.4-8.9)
== END 2023-04-18 08:49 | disposition home or self-care (01) ==
LOC: LAB.N 08:48
PROVIDERS: ATTEND Internal Medicine Hematology & Oncology
DX: C34.92 Malignant neoplasm of unspecified part of left bronchus or lung (principal); C50.411 Malignant neoplasm of upper-outer quadrant of right female breast; Z17.0 Estrogen receptor positive status [ER+]; E11.8 Type 2 diabetes mellitus with unspecified complications
CPT/HCPCS: 36415; 80053; 82378; 83036; 85025; 86300

== ENCOUNTER 2023-07-12 04:56 | Outpatient (CLI) | payer MEDICARE, OTHER | END 2023-07-12 04:57 | disposition critical access hospital (66) | LOC: EMS 04:56 | DX: R06.02 Shortness of breath (principal); R05.9 Cough, unspecified; M54.50 Low back pain, unspecified | CPT/HCPCS: A0425; A0429 ==

== ENCOUNTER 2023-07-12 05:15 | Emergency (ER) | payer MEDICARE, OTHER ==
--- NOTE | 2023-07-12 05:15 | ED Physician Documentation ---
PD HPI DYSPNEA - Stated complaint Stated Complaint: SOA - History obtained from History obtained from: Patient - Additional information Additional information: BIBA. HPI from patient. Patient complains of shortness of breath and cough, onset at approximately 7 PM without specific inciting event. Symptoms were gradual onset but have been gradually worsening. Her coughing has become increasingly frequent and she has developed severe low back pain which she attributes to the coughing. Low back pain is across her lower back and is exacerbated with coughing. Patient use her albuterol inhaler since the symptoms started without adequate improvement in symptoms. Past medical history includes right lung cancer for which she had a right lower lobectomy. She says she now has lesions in her left lung although biopsies have been negative for malignancy. Review of Systems Constitutional: denies: Fever, Chills, Sweats Cardiac: reports: Pedal edema (bilateral ankles). denies: Chest pain / pressure, Palpitations Respiratory: reports: Dyspnea, Cough. denies: Hemoptysis, Wheezing GI: denies: Abdominal Pain, Nausea, Vomiting Musculoskeletal: reports: Back pain PD PAST MEDICAL HISTORY - Past Medical History Past Medical History: Yes Cardiovascular: Hypertension, High cholesterol, Coronary artery disease Endocrine/Autoimmune: Type 1 diabetes, HyPOthyroidism Other Past Medical History: lung cancer - Present Medications Home Medications: Ambulatory Orders Medication Instructions Recorded Confirmed Atorvastatin Calcium 40 mg PO QPM 02/24/19 07/12/23 Empagliflozin [Jardiance] 25 mg PO DAILY 02/24/19 07/12/23 Metformin HCl 500 mg PO BID 02/24/19 07/12/23 Sertraline HCl 50 mg PO DAILY 02/24/19 03/04/22 Losartan Potassium [Cozaar] 50 mg PO DAILY 11/16/19 07/12/23 Aspirin [Aspirin EC] 81 mg PO DAILY 08/31/20 07/12/23 Benzonatate [Tessalon] 100 - 200 mg PO TID PRN 08/31/20 07/12/23 Insulin Glargine [Lantus Solostar] 30 unit SQ QDBREAKFAST 08/31/20 07/12/23 Levothyroxine [Synthroid] 75 mcg PO QDAC 08/31/20 07/12/23 Nitroglycerin [Nitrostat] 0.4 mg SL Q5MIN PRN 08/31/20 03/04/22 Insulin Glargine [Lantus Solostar] 20 units SQ HS 09/08/20 03/04/22 Ergocalciferol [Vitamin D2] 50,000 units PO DAILY 12/08/20 03/04/22 Dulaglutide [Trulicity] 0.75 mg SQ ONCE 11/28/21 07/12/23 Gabapentin [Neurontin] 600 mg PO DAILY 11/28/21 03/04/22 Gabapentin [Neurontin] 900 mg PO HS 11/28/21 07/12/23 Pantoprazole Sodium [Protonix] 20 mg PO BID 11/28/21 03/04/22 Albuterol 2.5 mg INH Q4H PRN #30 ml 07/12/23 Albuterol Sulf [Ventolin Hfa 1 - 2 puffs INH Q4HR PRN 07/12/23 07/12/23 Inhaler] Nebulizer and Compressor 1 each MC QID PRN #1 ea 07/12/23 [Compressor Nebulizer System] dexAMETHasone [Decadron] 4 mg PO DAILY #5 tablet 07/12/23 diazePAM [Diazepam] 2 mg PO Q8H PRN #15 tablet 07/12/23 - Allergies Allergies/Adverse Reactions: Allergies Allergy/AdvReac Type Severity Reaction Status Date / Time Opioids - Morphine Analogues AdvReac Intermediate Emesis/Itch Verified 07/12/23 08:07 ing codeine AdvReac projectile Verified 07/12/23 08:07 vomiting duloxetine AdvReac Nausea Verified 07/12/23 08:07 ketamine AdvReac Nausea Verified 07/12/23 08:07 niacin AdvReac Itching Verified 07/12/23 08:07 propoxyphene [From Darvon] AdvReac Itching Verified 07/12/23 08:07 PD ED PE NORMAL - Vitals Vital signs reviewed: Yes - General General: Alert and oriented X 3, Well developed/nourished, Other (Obvious painful distress that is exacerbated with coughing) - Cardiac Cardiac: RRR, No murmur - Respiratory Respiratory: No respiratory distress, Clear bilaterally (exam limited to anterior and bilateral axillary (too uncomfortable to sit up for posterior auscultation)) - Abdomen Abdomen: Soft, Non tender - Derm Derm: Normal color, Warm and dry Results - Vitals Vitals: Vital Signs - 24 hr 07/12/23 07/12/23 07/12/23 05:23 07:55 09:00 Temperature 35.8 C L Heart Rate 76 70 79 Respiratory 24 18 14 Rate Blood Pressure 129/104 H 158/86 H 150/82 H O2 Saturation 97 97 97 If not protocol 2 : Oxygen Flow, liters/minute 07/12/23 07/12/23 10:09 11:00 Temperature 36.4 C L Heart Rate 88 93 Respiratory 20 22 Rate Blood Pressure 156/90 H O2 Saturation 98 If not protocol : Oxygen Flow, liters/minute Oxygen O2 Source Room air Oxygen Flow Rate 2 - Labs Labs: Laboratory Tests 07/12/23 07/12/23 07/12/23 06:18 06:18 07:08 WBC 8.1 RBC 5.01 Hgb 14.0 Hct 43.0 MCV 85.8 MCH 27.9 MCHC 32.6 RDW 12.6 Plt Count 198 MPV 10.4 Neut # (Auto) 4.8 Lymph # (Auto) 2.1 Door # (Auto) 0.7 Eos # (Auto) 0.4 Baso # (Auto) 0.1 Absolute Nucleated RBC 0.00 Nucleated RBC % 0.0 Sodium 141 Potassium 3.2 L Chloride 108 Carbon Dioxide 24 Anion Gap 9.0 BUN 7 Creatinine 0.5 L Estimated GFR (MDRD) 123 Glucose 139 H Calcium 9.3 Total Bilirubin 0.8 AST 11 ALT 10 Alkaline Phosphatase 59 Total Protein 6.0 L Albumin 3.6 Globulin 2.4 Albumin/Globulin Ratio 1.5 Lipase 25 Nasal Adenovirus (PCR) NOT DETECTED Nasal B. parapertussis DNA (PCR) NOT DETECTED Nasal Coronavir 229E PCR NOT DETECTED Nasal Coronavir HKU1 PCR NOT DETECTED Nasal Coronavir NL63 PCR NOT DETECTED Nasal Coronavir OC43 PCR NOT DETECTED Nasal Enterovir/Rhinovir PCR NOT DETECTED Nasal Influenza B PCR NOT DETECTED Nasal Influenza A PCR NOT DETECTED Nasal Parainfluen 1 PCR NOT DETECTED Nasal Parainfluen 2 PCR NOT DETECTED Nasal Parainfluen 3 PCR NOT DETECTED Nasal Parainfluen 4 PCR NOT DETECTED Nasal RSV (PCR) NOT DETECTED Nasal B.pertussis DNA PCR NOT DETECTED Nasal C.pneumoniae (PCR) NOT DETECTED Derek Human Metapneumo PCR NOT DETECTED Nasal M.pneumoniae (PCR) NOT DETECTED Nasal SARS-CoV-2 (PCR) NOT DETECTED - Rads (name of study) CTA chest Relevant Findings:: Other (pending at end of my shift) PD Medical Decision Making - ED course Complexity details: considered differential, d/w patient ED course: Patient presents in obvious painful distress which is clearly exacerbated with coughing, and patient has frequent cough during H&P. Her pain is limited to across the lower back. Unfortunately, the patient insists that she cannot have any narcotic/opioid/opiate pain medication due to side effect and/or allergic reactions. We discussed options for pain control and my recommendation is that we start with a dose of Toradol. She says that she was told to not take any NSAIDs due to coronary artery disease (patient has 3 stents in the coronary arteries); I explained that a 1-time dose of the Toradol would not be contraindicated in this scenario and patient is agreeable to this medication as a one-time dose. She is thus given 15 mg IV Toradol. A Lidoderm patch is placed over the area of her back pain, as well. On reevaluation, she appears to be coughing significantly less frequently than when I first evaluated her, and she also appears to be in noticeably less overt painful distress. She says she has modest improvement in the pain (9.5 out of 10 on arrival, down to 8 on reevaluation). I then discussed with her the option of IV Valium for mild sedative property as well as muscle-relaxant property. She is agreeable to this medication and thus 2 mg IV diazepam is given. Blood tests, CTA chest, and respiratory PCR results are all pending at end of my shift; care of patient turned over to oncoming ED physician (Dr. Abdul). Departure - Departure Disposition: 01 Home, Self Care Clinical Impression: Acute back pain, Cough, Pleural effusion, Pleurisy, Pulmonary nodules Condition: Stable Follow-Up: Audra Chung PA-C [Primary Care Provider] - Prescriptions: Albuterol 2.5 mg INH Q4H PRN #30 ml PRN Reason: Wheezing Nebulizer and Compressor [Compressor Nebulizer System] 1 each MC QID PRN #1 ea PRN Reason: Wheezing dexAMETHasone [Decadron] 4 mg PO DAILY #5 tablet diazePAM [Diazepam] 2 mg PO Q8H PRN #15 tablet PRN Reason: Spasms Comments: Continue usual current medications. Contact your oncologist this coming week about the symptoms and events here. Compared to your most recent CT scan of the chest, you do have apparently new fluid around the lung on the left side. This potentially could be a source of diagnostic evaluation if they are looking for signs of cancer etc. That can be a cause for irritation leading to the fluid. Otherwise the recent pneumonia may have been a trigger or cause of irritation around the lung leading to the fluid. It is not a large amount. This irritation around the lung leading to the fluid could also be causing some of the pain that you are having (pleurisy). Otherwise some of your pain sounds muscular in character related to the cough. Your CT scan does not show any signs of blood clots or collapsed lung or pneumothorax. It does show nodules on both sides near the center part of the chest as sounds similar to the CT report you showed me most recent. At this point we can try a combination of some steroid anti-inflammatory to help with pain and cough. Use the albuterol inhaler or nebulizer (I will try prescribing 1) 3-4 times daily to help with breathing and cough. Add Tylenol 6 500 to 650 mg 4 times daily regularly for the next several days to week. Also add diazepam muscle relaxant 3 times daily if needed. I sent your prescriptions to your preferred pharmacy. Recheck if not improving well over the next several days. Follow-up with your primary care and oncology. Forms: PCP List Discharge Date/Time: 07/12/23 11:00
[2023-07-12] MEDS: LIDOCAINE PATCH 4% TOP STA (05:59)
[2023-07-12] MEDS: BENZONATATE 100 MG CAPSULE PO STA (05:59)
[2023-07-12] MEDS: KETOROLAC 15 MG/ML VIAL IVP STA (05:59)
[2023-07-12] MEDS ORDERED: iohexoL-300 100 ML VIAL ONE (06:02)
[2023-07-12 06:23] LABS: BASOPHILS # (AUTO) 0.1 10^3/uL (0.0-0.1); BASOPHILS % (AUTO) 0.6 %; EOSINOPHILS # (AUTO) 0.4 10^3/uL (0.0-0.7); EOSINOPHILS % (AUTO) 5.2 %; LYMPHOCYTES # (AUTO) 2.1 10^3/uL (1.5-3.5); LYMPHOCYTES % (AUTO) 25.6 %; MEAN CORPUSCULAR HEMOGLOBIN 27.9 pg (27.0-31.0); MEAN CORPUSCULAR HGB CONC 32.6 g/dL (32.0-36.0); MEAN CORPUSCULAR VOLUME 85.8 fL (81.0-99.0); MEAN PLATELET VOLUME 10.4 fL (7.9-10.8); MONOCYTES # (AUTO) 0.7 10^3/uL (0.0-1.0); MONOCYTES % (AUTO) 8.9 %; NEUTROPHILS # (AUTO) 4.8 10^3/uL (1.5-6.6); NEUTROPHILS % (AUTO) 59.3 %; PLT - PLATELET COUNT 198 10^3/uL (130-450); RED BLOOD COUNT 5.01 10^6/uL (4.20-5.40); RED CELL DISTRIBUTION WIDTH 12.6 % (12.0-15.0); WHITE BLOOD COUNT 8.1 x10^3/uL (4.8-10.8)
[2023-07-12 07:08] LABS: ALBUMIN 3.6 g/dL (3.2-5.5); ALBUMIN/GLOBULIN RATIO 1.5 (1.0-2.2); BILIRUBIN,TOTAL 0.8 mg/dL (0.2-1.0); CALCIUM 9.3 mg/dL (8.5-10.3); CREATININE 0.5 mg/dL (0.6-1.3); POTASSIUM 3.2 mmol/L (3.5-4.5)
[2023-07-12] MEDS: POTASSIUM BICARB 25 MEQ TABLET PO STA (07:36)
[2023-07-12] MEDS: iohexoL-300 100 ML VIAL IVP ONE (07:46)
[2023-07-12 08:21] LABS: B. PARAPERTUSSIS- RESP PCR PAN NOT DETECTED; B. PERTUSSIS- RESP PCR PANEL NOT DETECTED; C. PNEUMONIAE- RESP PCR PANEL NOT DETECTED; CORONAVIRUS 229E-RESP PCR NOT DETECTED; CORONAVIRUS HKU1-RESP PCR NOT DETECTED; CORONAVIRUS NL63-RESP PCR NOT DETECTED; CORONAVIRUS OC43-RESP PCR NOT DETECTED; HUMAN METAPNEUMOVIRUS NOT DETECTED; INFLUENZA A- RESP PCR PANEL NOT DETECTED; INFLUENZA B - RESP PCR PANEL NOT DETECTED; M. PNEUMONIAE- RESP PCR PANEL NOT DETECTED; PARAINFLUENZA VIRUS 1 NOT DETECTED; PARAINFLUENZA VIRUS 2 NOT DETECTED; PARAINFLUENZA VIRUS 3 NOT DETECTED; PARAINFLUENZA VIRUS 4 NOT DETECTED; RHINOVIRUS/ENTEROVIRUS NOT DETECTED; RSV- RESP PCR PANEL NOT DETECTED; SARS-CoV-2 -RESP PCR PANEL NOT DETECTED
[2023-07-12] MEDS: diazePAM INJ 5 MG/ML SYRINGE IVP STA (08:21)
--- NOTE | 2023-07-12 08:23 | CT Report ---
PROCEDURE: Angio Chest INDICATIONS: cough, dyspnea, chest pain, h/o lung CA CONTRAST: 80ml omni 300 TECHNIQUE: After the administration of intravenous contrast, 2 mm axial images were acquired from the pulmonary apices to the posterior costophrenic angles during the arterial phase. In addition, 1 mm lung kernel and 5 mm soft tissue kernel reconstructions were performed. 3-dimensional coronal oblique maximum int ensity projection (MIP) reformats, 8 mm axial MIP, and 5 mm coronal and sagittal MPR reformats were t hen performed through the thorax. For radiation dose reduction, the following was used: automated exp osure control, adjustment of mA and/or kV according to patient size. COMPARISON: 10/18/2016 FINDINGS: Image quality: Diagnostic Lungs and pleura:There is a moderate left pleural effusion. Opacities are seen projecting over the le ft perihilar regions in the upper lobe and lower lobe. There is superimposed atelectasis. Micronodule s are also seen in both lungs. Right lung postsurgical changes. No hiatal hernia. Mediastinum, heart, and esophagus: No acute pulmonary embolism is identified. There are coronary calcifications. A left central line terminates in the SVC. No pathologic lymph nodes by size criteria. Chest wall and thyroid: Possible left thyroid nodule again seen, consider sonographic correlation if not already obtained. Right breast postsurgical changes. There is a possible enhancing region surroun ding the clips in right breast. Upper abdomen: Cholelithiasis. Bones: No acute or suspicious osseous findings. IMPRESSION: Moderate left pleural effusion. Opacities in the perihilar regions, including both the left upper lob e and left lower lobe. These may be infectious or inflammatory, consider surveillance in the setting of malignancy history. Right lung postsurgical changes. Right breast postsurgical changes, possible enhancing lesion adjacent to clips. Consider follow-up ma mmography and possible ultrasound. Consider sonographic correlation for the left thyroid nodule, if not already obtained elsewhere. Reviewed by: Ruben Rivers MD on 07/12/2023 8:22 AM PST Approved by: Ruben Rivers MD on 07/12/2023 8:22 AM PST Station ID: [id number]
[2023-07-12] MEDS: DEXAMETHASONE 10 MG/ML VIAL IVP STA (10:05)
[2023-07-12] MEDS: ACETAMINOPHEN 325 MG TABLET PO STA (10:05)
[2023-07-12] MEDS: ALBUTEROL 1 PUFF INH STA (10:09)
--- NOTE | 2023-07-12 10:29 | ED Physician Documentation ---
ED Addendum - Addendum Addendum: 07/12/23 10:26 The patient was given muscle relaxant diazepam to help with her back pain. This allowed her to sleep and relax and have less discomfort. I went in to give her review of her CT report but she was still sleepy so I waited a bit. It was then her and her daughter I believe in the room when I went back. Her CT scan did show nodules in both left and right perihilar area that have been being worked up with biopsies. She does see an oncologist through the [facility] cancer center. She had a CT report on her MyChart on her phone that I was able to read at her permission from March 2023 which showed the similar lesions but without any effusion. Her CT today did show a small to medium amount of effusion on the left side. She is having pain both left and right with coughing and deep breathing. There likely is a muscular component to her recurrent pains as there is some tenderness to palpation in the muscular soft tissue. No signs of PEs on the CT scan and no pneumothorax etc. We can go with a combination of some anti-inflammatories as well as muscle relaxants and Tylenol. She is sensitive to all opiates causing significant nausea and would like to avoid these. She states the diazepam did help with the muscular pain. She would also like to avoid NSAIDs. At this point we could try a steroid anti-inflammatory daily for several days. She does have an albuterol inhaler at home and would like to have a nebulizer. I can try ordering that. Her primary care has been trying to do that. Also add a muscle relaxant to help. Disposition: The patient discharged home in stable condition. Diagnoses: 1. Back pain with coughing 2. Muscular back pain 3. Left pleural effusion and pleurisy 4. Pulmonary nodules
[2023-07-12 11:12] VITALS: BP 156/90; O2SAT 98
== END 2023-07-12 11:00 | disposition home or self-care (01) ==
LOC: EDUNIT# → ED 05:15
DX: R09.1 Pleurisy (principal); M54.50 Low back pain, unspecified; R91.8 Other nonspecific abnormal finding of lung field; R05.9 Cough, unspecified; I10 Essential (primary) hypertension; E78.00 Pure hypercholesterolemia, unspecified; I25.10 Atherosclerotic heart disease of native coronary artery without angina pectoris; E03.9 Hypothyroidism, unspecified; E10.9 Type 1 diabetes mellitus without complications; Z85.118 Personal history of other malignant neoplasm of bronchus and lung; Z79.899 Other long term (current) drug therapy; Z79.84 Long term (current) use of oral hypoglycemic drugs; Z79.82 Long term (current) use of aspirin
CPT/HCPCS: 36415; 71275; 80053; 83690; 85025; 87633; 94640; 94664; 96374; 96375; 99284; A9270; Q9967

== ENCOUNTER 2023-07-24 09:47 | Outpatient (CLI) | payer MEDICARE, OTHER | END 2023-07-24 09:48 | disposition EMS.NT | LOC: EMS 09:47 | DX: M54.50 Low back pain, unspecified (principal); W01.190A Fall on same level from slipping, tripping and stumbling with subsequent striking against furniture, initial encounter; Y92.009 Unspecified place in unspecified non-institutional (private) residence as the place of occurrence of the external cause ==

== ENCOUNTER 2023-08-21 08:03 | Outpatient (CLI) | payer MEDICARE, OTHER ==
--- NOTE | 2023-08-21 15:49 | XRAY Report ---
PROCEDURE: Cervical Spine 2-3V INDICATIONS: CERVICAL RADICULOPATHY TECHNIQUE: 2 view(s) of the cervical spine were acquired. COMPARISON: Cervical spine radiograph on May 20, 2019. FINDINGS: Lateral view is mildly suboptimal, limiting evaluation of the lower cervical spine. Bones: No fractures or dislocations to the C6 level. Reversal of the normal cervical lordosis center ed at C5-C6, which may partly be positional. Moderate degenerative changes at C4-C5 and C5-C6 with os teophytosis, disc height loss and facet/uncal arthropathy. Remainder of the spine demonstrates mild d egenerative changes. No suspicious bony lesions. Soft tissues: No prevertebral soft tissue swelling. Partially visualized left sided central venous catheter. IMPRESSION: Lateral view is mildly suboptimal, limiting evaluation of the lower cervical spine. 1.No displaced fracture or traumatic subluxation to the level of C6. 2.Moderate degenerative changes at C4-C5 and C5-C6 with reversal of the normal cervical lordosis cent ered at C5-C6 which may partly be positional. Degenerative changes have increased compared to prior d ated May 20, 2019. Reviewed by: Kimberlee Harper MD on 08/21/2023 3:47 PM PDT Approved by: Kimberlee Harper MD on 08/21/2023 3:47 PM PDT Station ID: [id number]
--- NOTE | 2023-08-21 15:50 | XRAY Report ---
PROCEDURE: Thoracic Spine 3V INDICATIONS: BACK PAIN, THORACIC REGION, CHRONIC TECHNIQUE: 3 views of the thoracic spine were acquired. COMPARISON: CT chest on July 12, 2023. FINDINGS: Bones: No fractures or dislocations. No suspicious bony lesions. 12 pairs of ribs are noted, and a ppear intact where visualized. Mild multilevel degenerative changes of the thoracic spine with osteo phytosis and disc height loss. Soft tissues: No paravertebral stripe thickening. Left-sided port tip terminates in the mid SVC. Po stsurgical changes in the left lung. Left lung patchy consolidation. IMPRESSION: 1.No acute bony abnormality. 2.Mild multilevel degenerative changes of the spine. 3.Left lung patchy consolidation which may represent atelectasis/scar, infection and/or malignancy. C onsider radiographic or cross-sectional imaging follow-up. Reviewed by: Kimberlee Harper MD on 08/21/2023 3:49 PM PDT Approved by: Kimberlee Harper MD on 08/21/2023 3:49 PM PDT Station ID: [id number]
== END 2023-08-21 08:04 | disposition home or self-care (01) ==
LOC: DI.N 08:03
PROVIDERS: ATTEND Physician Assistant Medical
DX: M47.22 Other spondylosis with radiculopathy, cervical region (principal); M47.814 Spondylosis without myelopathy or radiculopathy, thoracic region; E78.5 Hyperlipidemia, unspecified; E53.8 Deficiency of other specified B group vitamins; E11.8 Type 2 diabetes mellitus with unspecified complications
CPT/HCPCS: 36415; 80061; 82607; 83036; 83721

== ENCOUNTER 2023-08-21 08:09 | Outpatient (CLI) | payer MEDICARE, OTHER ==
[2023-08-21 11:57] LABS: ESTIMATED AVERAGE GLUCOSE 151 mg/dL (70-100); HEMOGLOBIN A1c% 6.9 % (4.27-6.07)
[2023-08-21 12:34] LABS: CHOL/HDL RATIO 5.2 (<4.4); CHOLESTEROL 109 mg/dL; HDL CHOLESTEROL 21 mg/dL; LDL CHOLESTEROL,CALCULATED 42 mg/dL; TRIGLYCERIDES 228 mg/dL (48-352); VLDL CHOLESTEROL 46 mg/dL
== END 2023-08-21 08:10 | disposition home or self-care (01) ==
LOC: LAB.N 08:09
PROVIDERS: ATTEND Physician Assistant Medical
DX: E78.5 Hyperlipidemia, unspecified (principal); E53.8 Deficiency of other specified B group vitamins; E11.8 Type 2 diabetes mellitus with unspecified complications
CPT/HCPCS: 36415; 80061; 82607; 83036; 83721

== ENCOUNTER 2023-09-13 18:04 | Emergency (ER) | payer MEDICARE, OTHER ==
[2023-09-13 18:18] VITALS: BP 103/71; O2SAT 97
--- NOTE | 2023-09-13 18:27 | ED Physician Documentation ---
PD HPI SKIN - Stated complaint Stated Complaint: RASH - Chief complaint Chief Complaint: General - History obtained from History obtained from: Patient - History of Present Illness Timing - onset: How many days ago (2) Timing - duration: Days (2) Timing - details: Gradual onset, Still present Location: Abdomen Quality / character: Painful, Burning Contributing factors: Other (is on therapy for lung cancer.) Similar symptoms before: Has not had sx before - Additional information Additional information: 68-year-old Ruth De Leon is being treated for lung cancer and she has developed a rash to the right side of her abdomen that is extremely painful. She developed pain 2 days ago and she noticed the rash today. 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 : Nocturia, Frequency HEENT: Chronic vision loss, Other Psych: Depression, Anxiety, Post traumatic stress disorder, Claustrophobia Musculoskeletal: Osteoarthritis, Fibromyalgia, Fatigue, Chronic back pain, Other Derm: None - Past Surgical History Past Surgical History: Yes General: Colonoscopy, Other Ortho: Other /CUPOLA REPAIRER: section, Hysterectomy Cardiovascular: Coronary stent, Lobectomy - Present Medications Home Medications: Ambulatory Orders Medication Instructions Recorded Confirmed Atorvastatin Calcium 40 mg PO QPM 02/24/19 07/12/23 Empagliflozin [Jardiance] 25 mg PO DAILY 02/24/19 07/12/23 Metformin HCl 500 mg PO BID 02/24/19 07/12/23 Sertraline HCl 50 mg PO DAILY 02/24/19 03/04/22 Losartan Potassium [Cozaar] 50 mg PO DAILY 11/16/19 07/12/23 Aspirin [Aspirin EC] 81 mg PO DAILY 08/31/20 07/12/23 Benzonatate [Tessalon] 100 - 200 mg PO TID PRN 08/31/20 07/12/23 Insulin Glargine [Lantus Solostar] 30 unit SQ QDBREAKFAST 08/31/20 07/12/23 Levothyroxine [Synthroid] 75 mcg PO QDAC 08/31/20 07/12/23 Nitroglycerin [Nitrostat] 0.4 mg SL Q5MIN PRN 08/31/20 03/04/22 Insulin Glargine [Lantus Solostar] 20 units SQ HS 09/08/20 03/04/22 Ergocalciferol [Vitamin D2] 50,000 units PO DAILY 12/08/20 03/04/22 Dulaglutide [Trulicity] 0.75 mg SQ ONCE 11/28/21 07/12/23 Gabapentin [Neurontin] 600 mg PO DAILY 11/28/21 03/04/22 Gabapentin [Neurontin] 900 mg PO HS 11/28/21 07/12/23 Pantoprazole Sodium [Protonix] 20 mg PO BID 11/28/21 03/04/22 Albuterol 2.5 mg INH Q4H PRN #30 ml 07/12/23 Albuterol Sulf [Ventolin Hfa 1 - 2 puffs INH Q4HR PRN 07/12/23 07/12/23 Inhaler] Nebulizer and Compressor 1 each MC QID PRN #1 ea 07/12/23 [Compressor Nebulizer System] dexAMETHasone [Decadron] 4 mg PO DAILY #5 tablet 07/12/23 diazePAM [Diazepam] 2 mg PO Q8H PRN #15 tablet 07/12/23 Valacyclovir HCl [Valtrex] 1,000 mg PO TID #30 tablet 09/13/23 - Allergies Allergies/Adverse Reactions: Allergies Allergy/AdvReac Type Severity Reaction Status Date / Time Opioids - Morphine Analogues AdvReac Intermediate Emesis/Itch Verified 09/13/23 18:08 ing codeine AdvReac projectile Verified 09/13/23 18:08 vomiting duloxetine AdvReac Nausea Verified 09/13/23 18:08 ketamine AdvReac Nausea Verified 09/13/23 18:08 niacin AdvReac Itching Verified 09/13/23 18:08 propoxyphene [From Darvon] AdvReac Itching Verified 09/13/23 18:08 - Social History Does the pt smoke?: No Smoking Status: Never smoker Does the pt drink ETOH?: No Does the pt have substance abuse?: No - Immunizations Immunizations are current?: Yes - POLST Patient has POLST: No POLST Status: Full Code PD ED PE NORMAL - Vitals Vital signs reviewed: Yes (normal ) - General General: Alert and oriented X 3, No acute distress, Well developed/nourished - HEENT HEENT: Atraumatic, PERRL, EOMI - Respiratory Respiratory: No respiratory distress - Abdomen Abdomen: Soft, Other (There are patches of vesicular eruption consistent with shingles without superinfection ) - Derm Derm: Normal color, Warm and dry, Other (as above ) - Extremities Extremities: No deformity, No edema - Neuro Neuro: Alert and oriented X 3, supreme court justice 2-12 intact, No motor deficit, No sensory deficit, Normal speech Eye Opening: Spontaneous Motor: Obeys Commands Verbal: Oriented GCS Score: 15 - Psych Psych: Normal mood, Normal affect Results - Vitals Vitals: Vital Signs - 24 hr 09/13/23 18:08 Temperature 36.8 C Heart Rate 70 Respiratory 18 Rate Blood Pressure 103/71 O2 Saturation 97 Oxygen O2 Source Room air PD Medical Decision Making - ED course Complexity details: considered differential, d/w patient ED course: 68-year-old Ruth De Leon has developed a rash and pain to her right abdominal wall. She developed the pain yesterday and went to see someone in the walk-in clinic was offered a shot of Toradol. She states that today she noticed this rash in the shower she called her oncologist who told her to come to the emergency department to be treated for shingles. She appears to have shingles. She is given a dose of valacyclovir here and a dose to go home with as the pharmacies are closed. I will E scribe her the remainder of her course. Departure - Departure Disposition: 01 Home, Self Care Clinical Impression: Shingles Qualifiers: Herpes zoster complications: without complications Qualified Code(s): B02.9 - Zoster without complications Condition: Stable Instructions: ED Shingles Follow-Up: Audra Chung PA-C [Primary Care Provider] - Prescriptions: Valacyclovir HCl [Valtrex] 1,000 mg PO TID #30 tablet Comments: Ruth, today it looks like you have the shingles. This is a reactivation of the chickenpox virus and there is an antiviral that we will help resolve this more rapidly than your normal immune system. We have given you a dose of valacyclovir here and this should be taken every 8 hours and I have E scribed the remainder of the prescription to the [facility] in [place].
[2023-09-13] MEDS: valACYclovir 500 MG TABLET PO STA (18:32)
== END 2023-09-13 18:38 | disposition home or self-care (01) ==
LOC: ED 18:04
DX: B02.9 Zoster without complications (principal); I10 Essential (primary) hypertension; E10.9 Type 1 diabetes mellitus without complications; Z79.84 Long term (current) use of oral hypoglycemic drugs; Z79.4 Long term (current) use of insulin
CPT/HCPCS: 99283; 99284; A9270

== ENCOUNTER 2023-11-14 15:32 | Outpatient (CLI) | payer MEDICARE, OTHER | END 2023-11-14 15:33 | disposition short-term general hospital (02) | LOC: EMS 15:32 | DX: R06.02 Shortness of breath (principal); R42 Dizziness and giddiness; R00.0 Tachycardia, unspecified | CPT/HCPCS: A0425; A0427; A0888 ==

== ENCOUNTER 2024-01-06 12:36 | Outpatient (CLI) | payer MEDICARE, OTHER | END 2024-01-06 23:59 | disposition critical access hospital (66) | LOC: EMS 12:36 | PROVIDERS: ATTEND Emergency Medicine | DX: S00.81XA Abrasion of other part of head, initial encounter (principal); S50.812A Abrasion of left forearm, initial encounter; Y04.2XXA Assault by strike against or bumped into by another person, initial encounter; W10.8XXA Fall (on) (from) other stairs and steps, initial encounter; Y92.008 Other place in unspecified non-institutional (private) residence as the place of occurrence of the external cause; Z79.02 Long term (current) use of antithrombotics/antiplatelets | CPT/HCPCS: A0425; A0429 ==

== ENCOUNTER 2024-01-06 13:03 | Emergency (ER) | payer MEDICARE, OTHER ==
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
[2024-01-06 13:22] LABS: BASOPHILS % (AUTO) 0.5 %; EOSINOPHILS # (AUTO) 0.2 10^3/uL (0.0-0.7); EOSINOPHILS % (AUTO) 2.1 %; HCT - HEMATOCRIT 35.9 % (37.0-47.0); HGB - HEMOGLOBIN 12.3 g/dL (12.0-16.0); LYMPHOCYTES # (AUTO) 2.2 10^3/uL (1.5-3.5); LYMPHOCYTES % (AUTO) 28.4 %; MEAN CORPUSCULAR HEMOGLOBIN 31.5 pg (27.0-31.0); MEAN CORPUSCULAR HGB CONC 34.3 g/dL (32.0-36.0); MEAN CORPUSCULAR VOLUME 91.8 fL (81.0-99.0); MEAN PLATELET VOLUME 9.3 fL (7.9-10.8); MONOCYTES # (AUTO) 0.6 10^3/uL (0.0-1.0); NEUTROPHILS # (AUTO) 4.6 10^3/uL (1.5-6.6); NEUTROPHILS % (AUTO) 60.6 %; PLT - PLATELET COUNT 269 10^3/uL (130-450); RED BLOOD COUNT 3.91 10^6/uL (4.20-5.40); RED CELL DISTRIBUTION WIDTH 13.8 % (12.0-15.0); WHITE BLOOD COUNT 7.6 x10^3/uL (4.8-10.8)
[2024-01-06] MEDS: KETOROLAC 15 MG/ML VIAL IVP STA (13:30)
[2024-01-06] MEDS: fentaNYL 100 MCG/2 ML VIAL IVP STA (13:31)
[2024-01-06 13:36] LABS: ALBUMIN 3.8 g/dL (3.2-5.5); ALBUMIN/GLOBULIN RATIO 1.1 (1.0-2.2); BILIRUBIN,TOTAL 0.7 mg/dL (0.2-1.0); CREATININE 0.6 mg/dL (0.6-1.3); MAGNESIUM 1.2 mg/dL (1.7-2.3); POTASSIUM 3.1 mmol/L (3.5-4.5); TOTAL PROTEIN 7.2 g/dL (6.4-8.9)
--- NOTE | 2024-01-06 14:31 | XRAY Report ---
PROCEDURE: Hip w/Pelvis 2-3V LT INDICATIONS: fall, struck knee and hip pain TECHNIQUE: 2 views of the hip were acquired. COMPARISON: None. FINDINGS: Bones: No fractures or dislocations. No suspicious bony lesions. Soft tissues: No suspicious soft tissue calcifications or masses. IMPRESSION: No acute bony abnormality. If there remains a high clinical concern for fracture, including inability to bear weight, consider cross-sectional imaging to exclude an occult fracture. Reviewed by: Danilo Lott MD on 01/06/2024 2:30 PM PDT Approved by: Danilo Lott MD on 01/06/2024 2:30 PM PDT Station ID: [id number]
--- NOTE | 2024-01-06 14:31 | XRAY Report ---
PROCEDURE: Knee 3V LT INDICATIONS: fal, struck knee TECHNIQUE: 3 views of the knee(s) were acquired. COMPARISON: None. FINDINGS: Bones: No fractures or dislocations. No suspicious bony lesions. Soft tissues: No knee joint effusion. No suspicious soft tissue calcifications or masses. IMPRESSION: No acute bony abnormality. Reviewed by: Danilo Lott MD on 01/06/2024 2:30 PM PDT Approved by: Danilo Lott MD on 01/06/2024 2:30 PM PDT Station ID: [id number]
--- NOTE | 2024-01-06 14:32 | XRAY Report ---
PROCEDURE: Shoulder 2+V RT INDICATIONS: fall, right shoulder pain on ROM TECHNIQUE: 3 views of the shoulder were acquired. COMPARISON: None. FINDINGS: Bones: No fractures or dislocations. No suspicious bony lesions. Visualized ribs appear intact. Acromioclavicular joint space narrowing with osteophytosis. Soft tissues: No suspicious soft tissue calcifications. The visualized lungs are within normal limi ts. Right axillary surgical clips. IMPRESSION: No acute bony abnormality. Moderate acromioclavicular osteoarthritis. Reviewed by: Danilo Lott MD on 01/06/2024 2:31 PM PDT Approved by: Danilo Lott MD on 01/06/2024 2:31 PM PDT Station ID: [id number]
[2024-01-06 14:35] VITALS: O2SAT 98
[2024-01-06 15:43] VITALS: BP 149/77
--- NOTE | 2024-01-06 15:46 | CT Report ---
PROCEDURE: Chest WO INDICATIONS: fall, struck right anterior chest TECHNIQUE: A CT scan of the chest was performed. Intravenous contrast media was not administered. Images were re corded and evaluated at appropriate window settings. Reformats: axial MIP of the chest, coronal and s agittal. For radiation dose reduction, the following was used: automated exposure control, adjustment of mA and/or kV according to patient size. COMPARISON: 07/27/2019, 07/12/2023 FINDINGS: Image quality: Diagnostic. Chest wall and lower neck: Enlarged left thyroid and right thyroid cyst, previously worked up on 01/18. No axillary or supraclavicular adenopathy by size. Right breast lumpectomy with shrieking hype rattenuating tissue measuring 3.3 x 1.7 cm (series 2, image 42) Lungs and pleura: Moderate left pleural effusion. Suspected posttreatment change in the left lung wit h perihilar volume loss and architectural distortion. Right lower lobectomy. Anterior articulation of the right lung, presumably posttreatment change. Mediastinum: Heart size is normal. No pericardial effusion. No large vessel abnormality. No mediastin al adenopathy by size criteria. Marked coronary artery calcifications, with stents. Bones: Stable compression deformity of the T6 vertebral body, possible avascular necrosis. Upper Abdomen: Cholelithiasis without evidence of acute cholecystitis. IMPRESSION: No displaced fractures or pneumothorax. Stable posttreatment changes of a right breast lumpectomy, with associated shrinking hyperattenuating lesion adjacent to the surgical clips. Consider follow-up ultrasound and mammography. Stable compression deformity of the T6 vertebral body, with possible superimposed avascular necrosis in the superior endplate. Moderate left pleural effusion. Suspected post treatment change in the left hilar space, with archite ctural distortion. Right lower lobectomy. Reviewed by: Danilo Lott MD on 01/06/2024 3:45 PM PDT Approved by: Danilo Lott MD on 01/06/2024 3:45 PM PDT Station ID: [id number]
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
--- NOTE | 2024-01-06 15:50 | CT Report ---
PROCEDURE: Maxillofacial WO INDICATIONS: fall, struck jaw/ left mandible pain TECHNIQUE: Noncontrast 1.5 mm thick axial images acquired from the mandible through the frontal sinuses, with co richard and sagittal reformatting. For radiation dose reduction, the following was used: automated ex posure control, adjustment of mA and/or kV according to patient size. COMPARISON: None. FINDINGS: Image quality: Excellent. Bones and teeth: Orbital wolff are intact. Sinus wolff show no fracture or deformity. Nasal bones and septum are intact. Visualized portions of the mandible demonstrate no fractures or subluxation. Zygomatic arches are intact. Pterygoid plates are intact. Visualized portions of the skull base an d auditory canals are intact. Sinuses: Paranasal sinuses are aerated, without fluid levels, mucosal thickening, or mucoceles. Mas toid air cells are aerated. Soft tissues: Inferior to the left side of the mandible, there is soft tissue edema and subcutaneous gas. Vascular: Visualized vascular structures appear normal in the absence of contrast. Bony vascular fo ramina and canals are intact. IMPRESSION: Inferior to the left side of the mandible, there is soft tissue swelling with associated subcutaneous gas, probably from laceration. No underlying fracture. Reviewed by: Danilo Lott MD on 01/06/2024 3:48 PM PDT Approved by: Danilo Lott MD on 01/06/2024 3:48 PM PDT Station ID: [id number]
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
[2024-01-06] MEDS: TETANUS/DIPHTHERIA/PERTUSSIS 0.5 ML SYRINGE IM ONE (16:15)
== END 2024-01-06 16:43 | disposition home or self-care (01) ==
LOC: EDUNIT# → ED 13:03
DX: S00.81XA Abrasion of other part of head, initial encounter (principal); S20.211A Contusion of right front wall of thorax, initial encounter; R92.8 Other abnormal and inconclusive findings on diagnostic imaging of breast; Z79.02 Long term (current) use of antithrombotics/antiplatelets; Y04.2XXA Assault by strike against or bumped into by another person, initial encounter; W10.8XXA Fall (on) (from) other stairs and steps, initial encounter; Y92.008 Other place in unspecified non-institutional (private) residence as the place of occurrence of the external cause
CPT/HCPCS: 36415; 80053; 83690; 83735; 85025; 90471; 96374; 96375; 99283

== ENCOUNTER 2024-02-02 12:40 | Outpatient (CLI) | payer MEDICARE, OTHER ==
[2024-02-02 17:23] LABS: BASOPHILS % (AUTO) 0.5 %; EOSINOPHILS % (AUTO) 0.8 %; HCT - HEMATOCRIT 40.2 % (37.0-47.0); HGB - HEMOGLOBIN 12.9 g/dL (12.0-16.0); LYMPHOCYTES # (AUTO) 1.5 10^3/uL (1.5-3.5); LYMPHOCYTES % (AUTO) 39.1 %; MEAN CORPUSCULAR HEMOGLOBIN 30.4 pg (27.0-31.0); MEAN CORPUSCULAR HGB CONC 32.1 g/dL (32.0-36.0); MEAN CORPUSCULAR VOLUME 94.8 fL (81.0-99.0); MEAN PLATELET VOLUME 10.4 fL (7.9-10.8); MONOCYTES # (AUTO) 0.5 10^3/uL (0.0-1.0); MONOCYTES % (AUTO) 13.6 %; NEUTROPHILS # (AUTO) 1.7 10^3/uL (1.5-6.6); NEUTROPHILS % (AUTO) 45.7 %; PLT - PLATELET COUNT 138 10^3/uL (130-450); RED BLOOD COUNT 4.24 10^6/uL (4.20-5.40); RED CELL DISTRIBUTION WIDTH 13.8 % (12.0-15.0); WHITE BLOOD COUNT 3.8 x10^3/uL (4.8-10.8)
[2024-02-02 17:32] LABS: ALBUMIN 3.7 g/dL (3.2-5.5); ALBUMIN/GLOBULIN RATIO 1.1 (1.0-2.2); BILIRUBIN,TOTAL 1.2 mg/dL (0.2-1.0); CALCIUM 8.9 mg/dL (8.5-10.3); CREATININE 0.5 mg/dL (0.6-1.3); POTASSIUM 2.7 mmol/L (3.5-4.5)
[2024-02-02 17:46] LABS: THYROID STIMULATING HORMONE 1.45 uIU/mL (0.34-5.60)
[2024-02-02 18:04] LABS: ESTIMATED AVERAGE GLUCOSE 126 mg/dL (70-100)
== END 2024-02-02 12:41 | disposition home or self-care (01) ==
LOC: LAB.N 12:40
PROVIDERS: ATTEND Physician Assistant Medical
DX: E11.8 Type 2 diabetes mellitus with unspecified complications (principal); E05.90 Thyrotoxicosis, unspecified without thyrotoxic crisis or storm; I10 Essential (primary) hypertension
CPT/HCPCS: 36415; 80053; 83036; 84443; 85025

== ENCOUNTER 2024-02-21 03:24 | Outpatient (CLI) | payer MEDICARE, OTHER | END 2024-02-21 23:59 | disposition critical access hospital (66) | LOC: EMS 03:24 | DX: R07.89 Other chest pain (principal); R11.2 Nausea with vomiting, unspecified | CPT/HCPCS: A0425; A0427 ==

== ENCOUNTER 2024-02-21 03:44 | Emergency (ER) | payer MEDICARE, OTHER ==
[2024-02-21 04:03] LABS: BASOPHILS % (AUTO) 0.6 %; EOSINOPHILS # (AUTO) 0.1 10^3/uL (0.0-0.7); EOSINOPHILS % (AUTO) 1.5 %; HCT - HEMATOCRIT 35.9 % (37.0-47.0); LYMPHOCYTES # (AUTO) 2.4 10^3/uL (1.5-3.5); LYMPHOCYTES % (AUTO) 33.1 %; MEAN CORPUSCULAR HGB CONC 33.4 g/dL (32.0-36.0); MEAN CORPUSCULAR VOLUME 92.8 fL (81.0-99.0); MEAN PLATELET VOLUME 9.4 fL (7.9-10.8); MONOCYTES # (AUTO) 0.6 10^3/uL (0.0-1.0); MONOCYTES % (AUTO) 8.6 %; NEUTROPHILS % (AUTO) 55.9 %; PLT - PLATELET COUNT 206 10^3/uL (130-450); RED BLOOD COUNT 3.87 10^6/uL (4.20-5.40); RED CELL DISTRIBUTION WIDTH 13.3 % (12.0-15.0); WHITE BLOOD COUNT 7.2 x10^3/uL (4.8-10.8)
--- NOTE | 2024-02-21 04:04 | ED Physician Documentation ---
History of Present Illness - Stated complaint Stated Complaint: BURNING IN CHEST - Chief complaint Chief Complaint: General - History obtained from History obtained from: Patient - Additonal information Additional information: 69-year-old woman with history of coronary artery disease status post stents a couple years previous in the [place], diabetes, high blood pressure, hyperlipidemia, presents with substernal chest pain starting about 3 AM with associated nonbloody nonbilious nausea and vomiting. Patient was feeling fine prior to that. she received 4mg IV zofran en route. PD PAST MEDICAL HISTORY - Past Medical History Cardiovascular: Hypertension, High cholesterol, Coronary artery disease Respiratory: Sleep apnea, Other Neuro: None Endocrine/Autoimmune: Type 1 diabetes, HyPOthyroidism GI: GERD, Hiatal hernia, Other EMERGENCY MEDCL EMT: None : Nocturia, Frequency HEENT: Chronic vision loss, Other Psych: Depression, Anxiety, Post traumatic stress disorder, Claustrophobia Musculoskeletal: Osteoarthritis, Fibromyalgia, Fatigue, Chronic back pain, Other Derm: None - Past Surgical History Past Surgical History: Yes General: Colonoscopy, Other Ortho: Other /EMERGENCY MEDCL EMT: section, Hysterectomy Cardiovascular: Coronary stent, Lobectomy - Present Medications Home Medications: Ambulatory Orders Medication Instructions Recorded Confirmed Atorvastatin Calcium 40 mg PO QPM 02/24/19 07/12/23 Empagliflozin [Jardiance] 25 mg PO DAILY 02/24/19 07/12/23 Metformin HCl 500 mg PO BID 02/24/19 07/12/23 Sertraline HCl 50 mg PO DAILY 02/24/19 03/04/22 Losartan Potassium [Cozaar] 50 mg PO DAILY 11/16/19 07/12/23 Aspirin [Aspirin EC] 81 mg PO DAILY 08/31/20 07/12/23 Benzonatate [Tessalon] 100 - 200 mg PO TID PRN 08/31/20 07/12/23 Insulin Glargine [Lantus Solostar] 30 unit SQ QDBREAKFAST 08/31/20 07/12/23 Levothyroxine [Synthroid] 75 mcg PO QDAC 08/31/20 07/12/23 Nitroglycerin [Nitrostat] 0.4 mg SL Q5MIN PRN 08/31/20 03/04/22 Insulin Glargine [Lantus Solostar] 20 units SQ HS 09/08/20 03/04/22 Ergocalciferol [Vitamin D2] 50,000 units PO DAILY 12/08/20 03/04/22 Dulaglutide [Trulicity] 0.75 mg SQ ONCE 11/28/21 07/12/23 Gabapentin [Neurontin] 600 mg PO DAILY 11/28/21 03/04/22 Gabapentin [Neurontin] 900 mg PO HS 11/28/21 07/12/23 Pantoprazole Sodium [Protonix] 20 mg PO BID 11/28/21 03/04/22 Albuterol 2.5 mg INH Q4H PRN #30 ml 07/12/23 Albuterol Sulf [Ventolin Hfa 1 - 2 puffs INH Q4HR PRN 07/12/23 07/12/23 Inhaler] Nebulizer and Compressor 1 each MC QID PRN #1 ea 07/12/23 [Compressor Nebulizer System] dexAMETHasone [Decadron] 4 mg PO DAILY #5 tablet 07/12/23 diazePAM [Diazepam] 2 mg PO Q8H PRN #15 tablet 07/12/23 Valacyclovir HCl [Valtrex] 1,000 mg PO TID #30 tablet 09/13/23 - Allergies Allergies/Adverse Reactions: Allergies Allergy/AdvReac Type Severity Reaction Status Date / Time Opioids - Morphine Analogues AdvReac Intermediate Emesis/Itch Verified 01/06/24 13:07 ing codeine AdvReac projectile Verified 01/06/24 13:07 vomiting duloxetine AdvReac Nausea Verified 01/06/24 13:07 ketamine AdvReac Nausea Verified 01/06/24 13:07 niacin AdvReac Itching Verified 01/06/24 13:07 propoxyphene [From Darvon] AdvReac Itching Verified 01/06/24 13:07 - Social History Does the pt smoke?: No Smoking Status: Never smoker Does the pt drink ETOH?: No Does the pt have substance abuse?: No - Immunizations Immunizations are current?: Yes - POLST Patient has POLST: No POLST Status: Full Code PD ED PE NORMAL - Vitals Vital signs reviewed: Yes - General General: Alert and oriented X 3, Other (uncomfortable appearing) - HEENT HEENT: Atraumatic, PERRL, EOMI - Neck Neck: Supple, no meningeal sign - Cardiac Cardiac: RRR - Respiratory Respiratory: No respiratory distress, Clear bilaterally - Abdomen Abdomen: Non tender, Non distended - Derm Derm: Normal color, Warm and dry - Neuro Neuro: Alert and oriented X 3 Results - Vitals Vitals: Vital Signs - 24 hr 02/21/24 02/21/24 02/21/24 03:54 04:32 05:04 Temperature 36.9 C Heart Rate 76 73 61 Respiratory 18 18 14 Rate Blood Pressure 142/74 H 153/76 H 122/62 O2 Saturation 97 94 95 If not protocol 2 : Oxygen Flow, liters/minute 02/21/24 02/21/24 02/21/24 05:18 05:36 06:24 Temperature Heart Rate 74 61 71 Respiratory 16 16 16 Rate Blood Pressure 122/62 122/75 144/77 H O2 Saturation 100 100 99 If not protocol 2 2 : Oxygen Flow, liters/minute 02/21/24 06:41 Temperature Heart Rate 68 Respiratory 15 Rate Blood Pressure 155/80 H O2 Saturation 100 If not protocol 2 : Oxygen Flow, liters/minute Oxygen O2 Source Nasal cannula - EKG (time done) 0354 EKG releavant findings:: EKG personally interpreted by author of this note. Relevant findings are: Rate: Rate (enter#) (76) Rhythm: NSR [place]: Normal Intervals: Normal [place] QRS: Normal Ischemia: Normal ST segments 0416 EKG releavant findings:: EKG personally interpreted by author of this note. Relevant findings are: Rate: Rate (enter#) (68) Rhythm: NSR [place]: Normal Intervals: Normal [place] QRS: Normal Ischemia: Normal ST segments - Labs Labs: Laboratory Tests 02/21/24 02/21/24 02/21/24 03:50 03:50 06:00 WBC 7.2 RBC 3.87 L Hgb 12.0 Hct 35.9 L MCV 92.8 MCH 31.0 MCHC 33.4 RDW 13.3 Plt Count 206 MPV 9.4 Neut # (Auto) 4.0 Lymph # (Auto) 2.4 [place] # (Auto) 0.6 Eos # (Auto) 0.1 Baso # (Auto) 0.0 Absolute Nucleated RBC 0.00 Nucleated RBC % 0.0 D-Dimer 731.9 H VBG pH VBG pCO2 VBG pO2 VBG HCO3 VBG Total CO2 VBG O2 Saturation VBG Base Excess Sodium 142 Potassium 3.4 L Chloride 108 Carbon Dioxide 26 Anion Gap 8.0 BUN 8 Creatinine 0.5 L Estimated GFR (MDRD) 123 Glucose 161 H Calcium 9.1 Total Bilirubin 0.7 AST 9 L ALT 4 L Alkaline Phosphatase 51 Troponin I High Sens 9.8 Total Protein 5.9 L Albumin 3.4 Globulin 2.5 Albumin/Globulin Ratio 1.4 Lipase 32 02/21/24 02/21/24 06:00 06:00 WBC RBC Hgb Hct MCV MCH MCHC RDW Plt Count MPV Neut # (Auto) Lymph # (Auto) [place] # (Auto) Eos # (Auto) Baso # (Auto) Absolute Nucleated RBC Nucleated RBC % D-Dimer VBG pH 7.314 VBG pCO2 48.5 VBG pO2 26.6 VBG HCO3 24.1 VBG Total CO2 25.6 VBG O2 Saturation 41.8 L VBG Base Excess -2.4 L Sodium Potassium Chloride Carbon Dioxide Anion Gap BUN Creatinine Estimated GFR (MDRD) Glucose Calcium Total Bilirubin AST ALT Alkaline Phosphatase Troponin I High Sens 9.8 Total Protein Albumin Globulin Albumin/Globulin Ratio Lipase PD Medical Decision Making - ED course ED course: 69yF with pmh dm, htn, hld, cad with stents p/w chest pain and n/v tonight concerning for ACS. she received zofran and nitroglycerin en route without relief of symptoms. her initial ekg shows no acute stemi however the history and presentation is quite concerning. plan to monitor closely, provide with aspirin, zofran and nitro in the ED. will obtain labs, cxr, and repeat ekg. Repeat ekg is unchanged - looks normal. Her labwork is benign. cxr shows R pleural effusion and chronic L parenchymal/pleural disease, seen previously on July 2023 CTA. patient is feeling better s/p IV dilaudid, po asa, sl nitro. plan to obtain d-dimer and vbg and repeat troponin. her repeat troponin is normal but d-dimer elevated therefore will go forward with CT PE study as well as CT a/p. will endorse to incoming daytime ED MD at 7am shift change. Departure - Departure Clinical Impression: Chest pain, Nausea and vomiting Condition: Stable Forms: PCP List
[2024-02-21] MEDS: ONDANSETRON 4 MG/2 ML VIAL IVP STA (04:10)
[2024-02-21] MEDS: ASPIRIN 325 MG TABLET PO STA (04:10)
[2024-02-21 04:16] LABS: ALBUMIN 3.4 g/dL (3.2-5.5); ALBUMIN/GLOBULIN RATIO 1.4 (1.0-2.2); BILIRUBIN,TOTAL 0.7 mg/dL (0.2-1.0); CALCIUM 9.1 mg/dL (8.5-10.3); CREATININE 0.5 mg/dL (0.6-1.3); POTASSIUM 3.4 mmol/L (3.5-4.5); TOTAL PROTEIN 5.9 g/dL (6.4-8.9)
[2024-02-21] MEDS: NITROGLYCERIN SL 0.4 MG TABLET SL STA (04:28)
[2024-02-21 04:39] LABS: TROPONIN I HIGH SENSITIVITY 9.8 ng/L (2.3-14.8)
[2024-02-21] MEDS: HYDROmorphone 0.5 MG/0.5 ML SYRINGE IVP STA (04:39)
[2024-02-21] MEDS: FAMOTIDINE 20 MG/2 ML VIAL IVP STA (04:39)
[2024-02-21] MEDS: METOCLOPRAMIDE 10 MG/2 ML VIAL IVP STA (04:39)
[2024-02-21] MEDS: MORPHINE 2 MG/ML CARPUJECT IVP STA (04:40)
[2024-02-21 06:07] LABS: VBG BASE EXCESS -2.4 mmol/L (-2 - +2); VBG HCO3 24.1 mmol/L (23-28); VBG OXYGEN SATURATION 41.8 % (60-80); VBG PCO2 48.5 mmHg (41-51); VBG PH 7.314 (7.31-7.41); VBG PO2 26.6 mmHg (25-47); VBG TOTAL CO2 25.6 mmol/L (24-29)
[2024-02-21] MEDS: SODIUM CHLORIDE 0.9% 1,000 ML IV STA ×2 (06:55→12:16)
[2024-02-21] MEDS ORDERED: iohexoL-300 100 ML VIAL ONE (07:01)
--- NOTE | 2024-02-21 07:48 | XRAY Report ---
PROCEDURE: Chest 1V INDICATIONS: chest pain TECHNIQUE: One view of the chest was acquired. COMPARISON: CT chest without contrast 01/06/2024 FINDINGS: Surgical changes and devices: Surgical clips along the right breast region. Left Port-A-Cath with th e distal tip at the cavoatrial junction Lungs and pleura: Small bilateral pleural effusions with passive atelectasis of the lower lobes. Mediastinum: Aortic arch calcifications. Mediastinal contours appear normal. Heart size is normal. Bones and chest wall: Diffuse osseous demineralization. No suspicious bony lesions. Overlying soft tissues appear unremarkable. IMPRESSION: Small bilateral pleural effusions with passive atelectasis of the lower lobes. Reviewed by: Erik Benz MD on 02/21/2024 7:47 AM PDT Approved by: Erik Benz MD on 02/21/2024 7:47 AM PDT Station ID: [id number]
--- NOTE | 2024-02-21 09:50 | CT Report ---
PROCEDURE: Angio Chest INDICATIONS: elevated d dimer, cp, soa CONTRAST: omni, 100 TECHNIQUE: After the administration of intravenous contrast, 2 mm axial images were acquired from the pulmonary apices to the posterior costophrenic angles during the arterial phase. In addition, 1 mm lung kernel and 5 mm soft tissue kernel reconstructions were performed. 3-dimensional coronal oblique maximum int ensity projection (MIP) reformats, 8 mm axial MIP, and 5 mm coronal and sagittal MPR reformats were t hen performed through the thorax. For radiation dose reduction, the following was used: automated exp osure control, adjustment of mA and/or kV according to patient size. COMPARISON: 01/06/2024 FINDINGS: Image quality: Diagnostic. Large vessels: No filling defects within the opacified pulmonary arteries, accounting for motion and contrast timing. No evidence of acute aortic syndrome or aortic aneurysm. Lungs and pleura: No consolidation. Stable to slightly increased size of moderate left pleural effusi on with associated compressive atelectasis. Stable appearance of suspected posttreatment changes of t he left lung and perihilar region. No septal thickening or nodularity. Right lung appears well aerate d. No suspicious pulmonary nodules which require follow up. Stable postsurgical changes of prior rig ht lower lobectomy. Mediastinum: Heart size is normal. No pericardial effusion. No large vessel abnormality. No mediastin al adenopathy by size criteria. Multivessel atherosclerotic calcifications of the coronary arteries. Chest wall and lower neck: Thyroid is stable in appearance. No axillary or supraclavicular adenopathy by size. Partially imaged right partial mastectomy changes. Bones: No aggressive osseous abnormality. No acute compression fracture. Stable appearance of chronic T6 anterior compression deformity. Upper Abdomen: Unremarkable. IMPRESSION: No acute pulmonary embolus. Stable to slightly increased size of left pleural effusion with associated compressive atelectasis. No new focal consolidation. Stable suspected post treatment changes of the left perihilar region. Stable postsurgical changes of prior right lower lobectomy. Moderate atherosclerotic vascular calcifications. Reviewed by: Jose Francisco Laws MD on 02/21/2024 8:49 AM JESS Approved by: Jose Francisco Laws MD on 02/21/2024 8:49 AM JESS Station ID: [id number]
--- NOTE | 2024-02-21 09:58 | CT Report ---
PROCEDURE: Abdomen/Pelvis W INDICATIONS: 69-year-old female with nausea and vomiting CONTRAST: Omnipaque 100 mL TECHNIQUE: After the administration of intravenous contrast, a CT scan of the abdomen and pelvis was performed. Images were recorded and evaluated at appropriate window settings. Reformats: coronal and sagittal. F or radiation dose reduction, the following was used: automated exposure control, adjustment of mA and /or kV according to patient size. COMPARISON: CT abdomen and pelvis with contrast 04/03/2022 FINDINGS: Peritoneum: There is no pneumoperitoneum. There is no ascites. Bones: There is no acute osseous abnormality. The visualized vertebral body heights are preserved. Di ffuse osseous demineralization. Lower Chest: Please see the same day separately dictated CT chest angiogram report for further detail s. Moderate left pleural effusion and associated passive atelectasis. Liver: The liver is normal in size and contour. Gallbladder: Punctate cholelithiasis without CT evidence of acute cholecystitis (). Biliary tree: There is no intrahepatic or extrahepatic biliary ductal dilatation. There are no radiop aque gallstones. Pancreas: The pancreas is within normal limits. Spleen: The spleen is normal in size. Kidneys: The kidneys enhance symmetrically. There is no hydronephrosis or obstructive urolithiasis. S ubcentimeter hypodense lesion at the right lateral interpolar region (), too small to characteriz e but likely representing a simple cyst. Adrenals: There is no adrenal nodularity. Bladder: The urinary bladder is within normal limits. : Status post hysterectomy. No abnormal adnexal masses. Stomach: The stomach is within normal limits. Bowel: The bowel is normal in diameter without any bowel obstruction. The appendix is within normal l imits. Lymph Nodes: Hazy appearance of the mesentery with numerous borderline enlarged mediastinal lymph nod es () Vascular: There is no abdominal aortic aneurysm. Mild ectasia of the infrarenal abdominal aorta with a maximum diameter of 2.6 cm (). Moderate aortoiliac atherosclerosis. Within the limits of a non- angiographic examination, the celiac, superior mesenteric, inferior mesenteric, renal, common iliac, external iliac, and internal iliac arteries are opacified. There is no large filling defect within th e main portal vein or superior mesenteric vein. Soft tissues: No acute abnormality. IMPRESSION: 1.Hazy appearance of the mesentery with prominent lymph nodes, likely representing mesenteric pannicu litis. Otherwise, no acute abnormality of the abdomen/pelvis. 2.Cholelithiasis without CT evidence of acute cholecystitis. Reviewed by: Erik Benz MD on 02/21/2024 9:57 AM PDT Approved by: Erik Benz MD on 02/21/2024 9:57 AM PDT Station ID: [id number]
[2024-02-21] MEDS: HYDROmorphone 1 MG/ML CARPUJECT IVP STA (11:00)
[2024-02-21] MEDS: KETOROLAC 15 MG/ML VIAL IVP STA (11:01)
[2024-02-21] MEDS: PROMETHAZINE INJ 12.5 MG in SODIUM CHLORIDE 0.9% 50 ML IV STA (12:12)
[2024-02-21] MEDS: MAG HYDROX/AL HYDROX/SIMETH 30 ML UDC PO STA (12:16)
--- NOTE | 2024-02-21 12:40 | ED Physician Documentation ---
ED Addendum - Addendum Addendum: 02/21/24 12:37 There was an extended period waiting for the CT imaging and then readings. During this time she did have some increased abdominal pain again and was given repeat dose of hydromorphone with improvement. She says she had some slight nausea still but declined the antiemetic I prescribed here. She does have some antiemetic medicines at home. I can prescribe suppository to if needed. She had started with the crampy upper abdominal pain with nausea and vomiting yesterday into today. Her CT of the chest abdomen and pelvis showed some haziness associated with the mesentery in the upper abdomen along with some small scattered lymph nodes. She has not had any diarrhea. There is no focal localized infection noted on the scans. At this point it would seem likely to be a viral type gastroenteritis though no diarrhea as yet. I presume her symptoms are related to that along with the mesenteric adenitis. She does take a blood thinner so no NSAIDs. She can go with Tylenol regularly for the next few days. I can prescribe some pain medicine to use if needed juan busby with suppository antiemetic. Small frequent fluids and bland food over the next couple of days. Return if needed. Diagnoses: 1. Upper abdominal pain 2. Nausea and vomiting 3. Mesenteric adenitis disposition: Patient is discharged home in stable condition.
[2024-02-21 13:21] VITALS: BP 110/65; O2SAT 99
[2024-02-21] MEDS: iohexoL-300 100 ML VIAL IVP ONE (16:06)
== END 2024-02-21 13:11 | disposition home or self-care (01) ==
LOC: EDUNIT# → ED 03:44
DX: I88.0 Nonspecific mesenteric lymphadenitis (principal); R10.10 Upper abdominal pain, unspecified; R11.2 Nausea with vomiting, unspecified; R79.89 Other specified abnormal findings of blood chemistry; Z79.899 Other long term (current) drug therapy
CPT/HCPCS: 36415; 71045; 71275; 74177; 80053; 82803; 83690; 84484; 85025; 85379; 93005; 96374; 96375; 99284; 99285; A9270; J1170; J2765; Q9967

== ENCOUNTER 2025-01-16 03:01 | Inpatient (IN) ==
--- NOTE | 2025-01-16 03:09 | ED Physician Documentation ---
PD HPI ABD PAIN Stated complaint Stated Complaint: CHEST PX Chief complaint Chief Complaint: Cardiac Additional information Additional information: 70-year-old with history of lung cancer on infusion chemotherapy, history of PE on Eliquis, chronic back pain, type 2 diabetes, and CAD status post stents presents with epigastric abdominal pain. She reports Friday night, she developed gradually worsening epigastric abdominal pain. It has come and gone, but now it is severe and radiating to her back. She has had about 4 episodes of nonbloody nonbilious vomiting the last 12 hours. She is not having loose stools. She is having increased urinary frequency. She is not having chest pain but is having difficulty breathing secondary to the abdominal pain. She has not taken anything for abdominal pain at home. No fever or chills. EMS was called and the patient was given 324 mg aspirin, nitro paste, and 4 mg IM Zofran en route. Prior abdominal surgical history significant for . Meds/Allgy Home Medications Ambulatory Orders Medication Instructions Recorded Confirmed atorvastatin 40 mg tablet 40 mg PO QPM 02/24/19 metformin 500 mg tablet 500 mg PO BID 02/24/1901/16 Nebulizer And Compressor #1 ea 07/12/23 01/16/25 [Compressor Nebulizer System] albuterol sulfate 2.5 mg/3 mL 2.5 mg (3 mL) inhalation Q4H PRN 07/12/23 01/16/25 (0.083 %) solution for nebulization Wheezing #30 mL albuterol sulfate 90 mcg/actuation 1 - 2 puff inhalati on Q4HR PRN 07/12/23 01/16/25 aerosol inhaler (Ventolin HFA) Shortness Of Air/Wheezi ng insulin glargine 100 unit/mL (3 20 unit subcut QDBREAK FAST 04/29/24 01/16/25 mL) subcutaneous pen (Lantus Solostar U-100 Insulin) potassium chloride 20 mEq 20 meq PO BID 04/29/2401/16 tablet,extended release (K-Tab) cyclobenzaprine 10 mg tablet 10 mg PO TID #90 tabs 01/16/25 empagliflozin 25 mg tablet 25 mg PO DAILY #90 tabs 01/16/25 (Jardiance) levothyroxine 75 mcg tablet 75 mcg PO QDAY #90 tabs 01/16/25 apixaban 5 mg tablet (Eliquis) 5 mg PO BID #180 tabs 1 07/04/23 01/16/25 folic acid 1 mg tablet 1 mg PO QDAY 07/27/24 inhalational spacing device 07/27/24 01/16/25 (Aerochamber MV spacer) pen needle, diabetic 31 gauge x 07/27/24 01/16/25 3/16" (Droplet Pen Needle) syringe with needle 3 mL 25 gauge 07/27/24 01/16/25 x 1" (Monoject 3cc Syringe) pantoprazole 20 mg tablet,delayed See Rx Instructions .Route 10/26/24 01/16/25 release .COMPLEX #180 tabs methocarbamol 750 mg tablet 750 mg PO QID 5 days #20 t abs 11/16/24 01/16/25 dulaglutide 1.5 mg/0.5 mL 0.5 mg subcut QWEEK 01/07/25 01/16/25 subcutaneous pen injector (Trulicity) furosemide 40 mg tablet 40 mg PO QDAY 01/07/2501/16 hydromorphone 2 mg tablet 2 mg PO Q4H PRN pain 5 01/16/25 sertraline 100 mg tablet 100 mg PO DAILY 01/07/2504/02 Allergies Allergies Allergy/AdvReac Type Severity Reaction Status Date / Time codeine AdvReac Severe projectile Verified 01/16/25 03:29 vomiting duloxetine AdvReac Severe Nausea Verified 01/16/25 03:29 niacin AdvReac Severe Itching Verified 01/16/25 03:29 Opioids - Morphine Analogues AdvReac Severe Emesis/Itch Verified 01/16/25 03:29 ing propoxyphene (From Darvon) AdvReac Severe Itching Verified 01/16/25 03:29 ketamine AdvReac Nausea Verified 01/16/25 03:29 PFSH Active Problems All Active Problems Pleural effusion (Acute) Dyspnea (Acute) Head injury (Acute) Ground-level fall (Acute) Contusion of right shoulder (Acute) ST elevation (STEMI) myocardial infarction of unspecified site (Acute) DM circ dis type II, uncontrolled (Acute) Adenocarcinoma of right lung (Acute) Hiatal hernia with gastroesophageal reflux (Acute) Arthralgia (Acute) Polycythemia (Acute) Constipation (Acute) Fatigue (Acute) Screening mammogram for breast cancer (Acute) Screening for malignant neoplasm of colon (Acute) Lung nodule (Acute) Hx of cancer of lung (Acute) Internal derangement of left knee (Acute) Cervical radiculopathy at C5 (Acute) Rectal bleeding (Acute) Adenocarcinoma of right breast (Acute) Lymphedema due to radiation (Acute) Hx of acute myocardial infarction (Acute) Knee pain, right (Acute) Fatty liver (Acute) Toe pain, left (Acute) Other ganglion and cyst of synovium, tendon, and bursa (Acute) Trigger finger (Acute) Low back pain (Acute) Back pain, thoracic (Acute) Other pulmonary embolism without acute cor pulmonale (Acute) Cellulitis of abdominal wall (Acute) Pleural effusion in other conditions classified elsewhere (Acute) Hypokalemia (Acute) Chest wall pain (Acute) Hoarseness (Acute) Wrist pain (Acute) Fibromyalgia (Acute) Diabetes mellitus type 2, controlled, without complications (Acute) Hyperthyroidism (Acute) Migraine (Acute) PTSD (post-traumatic stress disorder) (Acute) Anxiety (Acute) Thyroid nodule (Acute) Polycythemia vera (Acute) Lumbar spinal stenosis (Acute) Hypertension, essential, benign (Acute) Cervical radiculopathy (Acute) Hypothyroidism (Acute) Breast cancer (Acute) B12 deficiency (Acute) CAD (coronary artery disease) (Acute) Fatty liver disease, nonalcoholic (Acute) Cancer of left lung (Acute) Chronic low back pain (Acute) Pulmonary embolism (Acute) Pleural effusion, malignant (Acute) Jaw pain (Acute) Dysphagia (Acute) Impingement syndrome of right shoulder (Acute) GERD (gastroesophageal reflux disease) (Acute) Depression (Acute ~04/2024) Hyperlipidemia (Acute) Contusion, buttock (Acute) Medical History Medical History Rotator cuff tear, right Social History Social History Smoking Status: Former smoker If you are a former smoker, when did you quit? (Date/Year): 2002 Number of Years Smoked: 30 Do you dip or chew tobacco?: No Do you vape?: No Living arrangement: At home Living Condition: With family Relationship: Do you feel safe in your home environment?: Yes Suffered physical, verbal, emotional, or financial abuse?: No History of Abuse: No Frequency: Occasional POLST Patient has POLST: No Exam Exam Vital Signs: Vital Signs x48h Temp Pulse Resp BP Pulse Ox O2 Flow Rate 01/16/25 07:02 99 24 126/85 97 1 01/16/25 06:22 39.4 C H 97 26 H 100/64 93 01/16/25 05:00 71 12 122/68 97 1 01/16/25 04:27 69 18 148/79 H 97 1 01/16/25 03:48 60 15 150/75 H 96 01/16/25 03:33 37.5 C 70 19 96 01/16/25 03:01 36.9 C 65 22 151/107 H 96 Ill-appearing in acute discomfort. Patient does not seem to be able to get comfortable on the stretcher. Lungs are clear to auscultation bilaterally. S1 and S2 are audible. Abdomen with significant epigastric and right upper quadrant tenderness; however, there is no rebound or guarding. No evidence of peritonitis. No unilateral calf swelling or tenderness. Extremities are warm and well-perfused. Speech is fluent with no slurring. Patient is grossly moving all extremities without neurologic deficit. Results Vitals Vitals: Vital Signs - 24 hr 01/16/25 03:01 01/16/25 03:33 01/16/25 03:36 Temperature 36.9 C 37.5 C Temperature Source Temporal Artery Scan Oral Pulse Rate 65 70 Respiratory Rate 22 19 Blood Pressure 151/107 H O2 Saturation 96 96 O2 Source Room air Room air If not protocol: Oxygen Flow, liters/minute Pain Intensity 10 9 9 01/16/25 03:48 01/16/25 03:52 01/16/25 04:27 Temperature Temperature Source Pulse Rate 60 69 Respiratory Rate 15 18 Blood Pressure 150/75 H 148/79 H O2 Saturation 96 97 O2 Source Room air Nasal cannula If not protocol: Oxygen Flow, liters/minute 1 Pain Intensity 0 0 0 01/16/25 05:00 01/16/25 06:22 01/16/25 06:40 Temperature 39.4 C H Temperature Source Pulse Rate 71 97 Respiratory Rate 12 26 H Blood Pressure 122/68 100/64 O2 Saturation 97 93 O2 Source Nasal cannula Nasal cannula If not protocol: Oxygen Flow, liters/minute 1 Pain Intensity 0 6 6 01/16/25 07:02 Temperature Temperature Source Pulse Rate 99 Respiratory Rate 24 Blood Pressure 126/85 O2 Saturation 97 O2 Source Nasal cannula If not protocol: Oxygen Flow, liters/minute 1 Pain Intensity 4 Oxygen O2 Source Nasal cannula EKG (time done) 3:06: EKG releavant findings:: EKG personally interpreted by author of this note. Relevant findings are: Rate: Rate (enter#) (72) Rhythm: NSR [place]: Normal Intervals: Normal SC QRS: QRS normal Ischemia: Normal ST segments Labs Labs: Laboratory Tests 01/16/25 01/16/25 03:11 03:23 WBC 8.9 RBC 4.18 L Hgb 12.6 Hct 39.7 MCV 95.0 MCH 30.1 MCHC 31.7 L RDW 14.6 Plt Count 252 MPV 8.9 Neut # (Auto) 7.3 H Lymph # (Auto) 1.3 L [place] # (Auto) 0.1 Eos # (Auto) 0.1 Baso # (Auto) 0.0 Absolute Nucleated RBC 0.00 Nucleated RBC % 0.0 Sodium 137 Potassium 3.5 Chloride 100 L Carbon Dioxide 27 Anion Gap 10.0 BUN 11 Creatinine 0.5 L Estimated GFR (MDRD) 123 Glucose 157 H Calcium 9.5 Total Bilirubin 2.0 H Direct Bilirubin 0.65 H GGT 72 H AST 66 H ALT 56 Alkaline Phosphatase 101 Troponin I High Sens 6.2 Total Protein 7.0 Albumin 3.9 Globulin 3.1 Albumin/Globulin Ratio 1.3 Lipase 24 PD Medical Decision Making ED course Complexity details: reviewed old records, reviewed results, re-evaluated patient, considered differential and d/w patient ED course: Presents with 1.5 days of epigastric pain with associated vomiting. Patient is notably uncomfortable upon arrival here. She has epigastric and right upper quadrant tenderness. Differential diagnosis includes ACS, arrhythmia, pneumonia, pneumothorax, pleural effusion, pancreatitis, biliary disease, and perforated viscus. I will obtain labs, ECG, and CT abdomen pelvis. I will treat nausea and abdominal pain with IV medications. Labs show no leukocytosis. Electrolytes are within normal limits. Bilirubin is mildly elevated, but this is chronic for her. Alkaline phosphatase is within normal limits. AST mildly elevated. CT scan shows questionable cholecystitis. Patient seems to mostly have epigastric discomfort. We will order formal right upper quadrant ultrasound in the morning when ultrasound is in the building. 6:38- I spoke to on-call surgeon Dr. Charles regarding the case. She recommended blood cultures, direct bilirubin, and right upper quadrant ultrasound. All these had already been ordered and were pending at the time of our conversation. She did not think the patient needed emergent transfer to advanced endoscopy site yet. At time of signout to daytime physician, she is awaiting lactic acid, fluid resuscitation, and RUQ US. Zosyn was ordered for empiric intra-abdominal infection coverage. Sepsis Event Sepsis Onset Date: 01/16/25 Sepsis Onset Time: 06:20 Current Stage of Sepsis: Sepsis Initial Hypotension: Not hypotensive Possible source of Sepsis: GI tract/intra-abdominal Mental/Cognitive Status: Alert/Oriented X3 Reason for not giving 30ml/kg crystalloid fluids: Not in septic shock Capillary refill: Greater than 2 seconds Peripheral Pulse Strength: 3+ Normal Peripheral Pulse Location: Radial Discharge Plan Discharge Prescriptions: No Action levothyroxine 75 mcg tablet 75 mcg PO QDAY Qty: 90 3RF cyclobenzaprine 10 mg tablet 10 mg PO TID Qty: 90 3RF Rx Instructions: as needed for muscle spasms Jardiance 25 mg tablet 25 mg PO DAILY Qty: 90 3RF Eliquis 5 mg tablet 5 mg PO BID Qty: 180 3RF folic acid 1 mg tablet 1 mg PO QDAY Rx Instructions: take 1 tablet by mouth once day (DME) pen needle, diabetic [Droplet Pen Needle] 31 gauge x 3/16" needle See Rx Instructions .Route Rx Instructions: As directed (DME) Monoject 3cc Syr 25Gx1" 3 mL 25 gauge x 1" syringe See Rx Instructions .Route Rx Instructions: As directed (DME) Aerochamber MV Spacer See Rx Instructions .Route Rx Instructions: As directed atorvastatin 40 MG tablet 40 mg PO QPM metformin 500 MG tablet 500 mg PO BID insulin glargine [Lantus Solostar U-100 Insulin] 100 unit/mL (3 mL) insulin pen 20 unit subcut QDBREAKFAST albuterol sulfate [Ventolin HFA] 200 PUFFS/18 GM HFA aerosol inhaler 1 - 2 puff inhalation Q4HR PRN (Reason: Shortness Of Air/Wheezing) Patient Comments: inhale 2 puffs by mouth every 4 hours if needed for shortness of breath cough or wheezing albuterol sulfate 2.5 MG/3 ML solution for nebulization 2.5 mg inhalation Q4H PRN (Reason: Wheezing) Qty: 30 0RF Rx Instructions: 1 AMPULE (DME) Nebulizer And Compressor [Compressor Nebulizer System] 1 EACH Each 1 ea miscellaneous QID Qty: 1 0RF methocarbamol 750 mg tablet 750 mg PO QID 5 Days Qty: 20 0RF hydromorphone 2 mg tablet 2 mg PO Q4H PRN (Reason: pain) Patient Comments: 2 mg orally every 4 hours As Needed for pain, Max Daily Dose: 4 sertraline 100 mg tablet 100 mg PO DAILY Trulicity 1.5 mg/0.5 mL pen injector 0.5 mg subcut QWEEK furosemide 40 mg tablet 40 mg PO QDAY pantoprazole 20 mg tablet,delayed release (DR/EC) See Rx Instructions .ROUTE .COMPLEX Qty: 180 3RF Dose Instruction: TAKE 1 TABLET TWICE A DAY Rx Instructions: TAKE 1 TABLET ONCE A DAY potassium chloride [K-Tab] 20 mEq tablet extended release 20 meq PO BID Print Language: Citizen Of [place] Stand Alone Forms: PCP List
[2025-01-16 03:29] LABS: HCT - HEMATOCRIT 39.7 % (37.0-47.0); HGB - HEMOGLOBIN 12.6 g/dL (12.0-16.0); MEAN PLATELET VOLUME 8.9 fL (7.9-10.8); NRBC ABSOLUTE COUNT (AUTO) 0.00 x10^3/uL; NUCLEATED RED BLOOD CELLS AUTO 0.0 /100WBC; PLT - PLATELET COUNT 252 10^3/uL (130-450); RED CELL DISTRIBUTION WIDTH 14.6 % (12.0-15.0)
[2025-01-16] MEDS: ONDANSETRON 4 MG/2 ML VIAL IVP STA ×2 (03:31→06:16)
[2025-01-16] MEDS: HYDROmorphone 1 MG/ML CARPUJECT IVP STA (03:36)
[2025-01-16 03:50] LABS: TROPONIN I HIGH SENSITIVITY 6.2 ng/L (2.3-14.8)
[2025-01-16 03:58] LABS: ALT ALANINE AMINOTRANSFERASE 56.0 IU/L (10-60); AST ASPARTATE AMINOTRANSFERASE 66.0 IU/L (10-42); BUN - BLOOD UREA NITROGEN 11.0 mg/dL (6-20); CARBON DIOXIDE - CO2 27.0 mmol/L (21-32); CREATININE 0.5 mg/dL (0.6-1.3); GFR - MDRD 123.0 (>89)
--- OUTSIDE RECORDS SUMMARY | 2025-01-16 04:31 | EXTERNAL MEDICAL SUMMARY RPT | Continuity of Care Document ---
Author Organization [place] [facility] Address [address] [place] [id number] Phone Problems date description facility 2024-10-26 16:54 Malignant neoplasm o f unspecified part of right bronchus or lung [facility] 2024-10-26 16:54 Arthralgia of left temporomandi bular joint [facility] 2024-10-27 08:47 Constipation, unspecified [facility] 2024-10-27 08:47 Drug induced constipation [facility] 2024-10-27 08:47 Other specified diseases of mir s and rectum [facility] 2024-10-27 08:47 Cellulitis of face [facility] 2024-10-27 08:47 Arthralgia of left temporomandi bular joint [facility] 2024-10-27 08:47 Low back pain, unspecified [facility] 2024-10-27 08:47 Dorsalgia, unspecified [facility] 2024-10-27 08:47 Urinary tract infection, site n ot specified [facility] 2024-10-27 08:47 Cough, unspecified [facility] 2024-10-27 08:47 Shortness of breath [facility] 2024-10-27 08:47 Pelvic and perineal pain [facility] 2024-10-27 08:47 Unspecified abdominal pain [facility] 2024-10-27 08:47 Rash and other nonspecific skin eruption [facility] 2024-10-27 08:47 Jaw pain [facility] 2024-10-27 08:47 Abrasion of other part of head, initial encounter [facility] 2024-10-27 08:47 Unspecified injury of head, ini tial encounter [facility] 2024-10-27 08:47 Contusion of right f ront wall of thorax, initial encounter [facility] 2024-10-27 08:47 Adverse effect of other opioids , [facility] 2024-11-03 07:44 Malignant neoplasm o f unspecified part of right bronchus or lung [facility] 2024-11-03 07:44 Malignant neoplasm o f unspecified part of left bronchus or lung [facility] 2024-11-03 07:44 Type 2 diabetes mellitus withou t complications [facility] 2024-11-03 07:44 Anxiety disorder, unspecified [facility] 2024-11-03 07:44 Atherosclerotic hear t disease of [place] coronary artery without angina pectoris [facility] 2024-11-03 07:44 Other pulmonary embolism withou t acute cor pulmonale [facility] 2024-11-03 07:44 Arthralgia of left temporomandi bular joint [facility] 2024-11-16 21:54 Other muscle spasm [facility] 2024-11-17 08:07 [facility] 2024-11-17 15:59 [facility] 2024-11-19 07:25 Pain in right shoulder [facility] 2024-11-19 07:25 Cervicalgia [facility] 2024-11-19 07:25 Headache, unspecified [facility] 2024-11-19 18:08 Cervicalgia [facility] 2024-11-19 18:08 Other muscle spasm [facility] 2024-11-26 12:52 Constipation, unspecified [facility] 2024-11-26 12:52 Drug induced constipation [facility] 2024-11-26 12:52 Other specified diseases of mir s and rectum [facility]24-[facility]-26 12:52 Cellulitis of face [facility] 2024-11-26 12:52 Pain in right shoulder [facility] 2024-11-26 12:52 Arthralgia of left temporomandi bular joint [facility] 2024-11-26 12:52 Cervicalgia [facility] 2024-11-26 12:52 Low back pain, unspecified [facility] 2024-11-26 12:52 Dorsalgia, unspecified [facility] 2024-11-26 12:52 Other muscle spasm [facility] 2024-11-26 12:52 Urinary tract infection, site n ot specified [facility] 2024-11-26 12:52 Cough, unspecified [facility] 2024-11-26 12:52 Shortness of breath [facility] 2024-11-26 12:52 Pelvic and perineal pain [facility] 2024-11-26 12:52 Unspecified abdominal pain [facility] 2024-11-26 12:52 Rash and other nonspecific skin eruption [facility] 2024-11-26 12:52 Headache, unspecified [facility] 2024-11-26 12:52 Jaw pain [facility] 2024-11-26 12:52 Abrasion of other part of head, initial [facility] 2024-11-26 12:52 Unspecified injury of head, ini tial encounter [facility] 2024-11-26 12:52 Contusion of right f ront wall of thorax, [facility] 2024-11-26 12:52 Adverse effect of other opioids , initial encounter [facility] 2024-12-01 14:26 Unspecified hearing loss, unspe cified ear [facility] 2024-12-01 14:26 Dysphonia [facility] 2024-12-01 14:32 Unspecified hearing loss, unspe cified ear [facility] 2024-12-01 14:32 Dysphonia [facility] 2024-12-01 14:58 Unspecified hearing loss, unspe cified ear [facility] 2024-12-01 14:58 Impingement syndrome of right s houlder [facility] 2024-12-01 14:58 Dysphonia [facility] 2024-12-02 09:08 Pain in right shoulder [facility] 2024-12-02 09:08 Cervicalgia [facility] 2024-12-02 09:08 Headache, unspecified [facility] 2024-12-02 14:22 [facility]gia [facility] 2024-12-06 12:59 Constipation, unspecified [facility] 2024-12-06 12:59 [facility] 2024-12-06 12:59 Other specified diseases of mir s and rectum [facility] 2024-12-06 12:59 Cellulitis of face [facility] 2024-12-06 12:59 Pain in right shoulder [facility] 2024-12-06 12:59 Arthralgia of left temporomandi bular joint [facility] 2024-12-06 12:59 Cervicalgia [facility] 2024-12-06 12:59 Low back pain, unspecified [facility] 2024-12-06 12:59 Dorsalgia, unspecified [facility] 2024-12-06 12:59 Other muscle spasm [facility] 2024-12-06 12:59 Urinary tract infection, site n ot specified [facility] 2024-12-06 12:59 Cough, unspecified [facility] 2024-12-06 12:59 Shortness of breath [facility] 2024-12-06 12:59 Pelvic and perineal pain [facility] 2024-12-06 12:59 Unspecified abdominal pain [facility] 2024-12-06 12:59 Rash and other nonspecific skin eruption [facility] 2024-12-06 12:59 Headache, unspecified [facility]24-[facility]06 12:59 Jaw pain [facility] 2024-12-06 12:59 Abrasion of other part of head, initial encounter [facility] 2024-12-06 12:59 Unspecified injury of head, ini tial encounter [facility] 2024-12-06 12:59 Contusion of right f ront wall of thorax, initial encounter [facility] 2024-12-06 12:59 Adverse effect of other opioids , initial encounter [facility] 2024-12-08 11:39 Unspecified injury o f right shoulder and upper arm, initial encounter [facility] 2024-12-29 14:33 Type 2 diabetes mellitus withou t complications [facility] 2025-01-11 11:42 Shortness of breath [facility] Results/Labs test date facility value unit notes Result panel 1 NUCLEATED RED BLOOD CELLS AUTO 2025-01-07 17:33 [facility] 0.0 /100wbc (missing) BASOPHILS # (AUTO) 2025-01-07 17:33 [facility] 0.0 10 3/ul (missing) NRBC ABSOLUTE COUNT (AUTO) 2025-01-07 17:33 [facility] 0.00 x10 3/ul (missing) EOSINOPHILS # (AUTO) 2025-01-07 17:33 [facility] 0.1 10 3/ul (missing) CREATININE 2025-01-07 17:33 [facility] 0.4 mg/dl As of December 2022 testing method has changed, this may include reference ranges. MONOCYTES # (AUTO) 2025-01-07 17:33 [facility] 0.7 10 3/ul (missing) LYMPHOCYTES # (AUTO) 2025-01-07 17:33 [facility] 1.8 10 3/ul (missing) BUN - BLOOD UREA NITROGEN 2025-01-07 17:33 [facility] 10 mg/dl As of Dec testing method has changed, this may include reference ranges. CALCIUM 2025-01-07 17:33 [facility] 10.1 mg/dl As of December 2022 testing method has changed, this may include reference ranges. CHLORIDE 2025-01-07 17:33 [facility] 104 mmol/l As of December 2022 testing method has changed, this may include reference ranges. HGB - HEMOGLOBIN 2025-01-07 17:33 [facility] 11.3 g /dl (missing) SODIUM 2025-01-07 17:33 [facility] 138 mmol/l (missing) RED CELL DISTRIBUTION WIDTH 2025-01-07 17:33 [facility] 14.0 % (missing) GFR - MDRD 2025-01-07 17:33 [facility] 159 (missin g) Social History date description facility
[2025-01-16] MEDS: MAG HYDROX/AL HYDROX/SIMETH 30 ML UDC PO STA (06:06)
[2025-01-16] MEDS: KETOROLAC 15 MG/ML VIAL IVP STA (06:40)
[2025-01-16] MEDS: LACTATED RINGERS 1,000 ML IV STA (06:44)
[2025-01-16] MEDS: PIPERACILLIN/TAZOBACTAM 4.5 GM in SODIUM CHLORIDE 0.9% MINIBAG 100 ML IV STA (07:00)
[2025-01-16 07:18] LABS: OCCULT BLOOD,URINE NEGATIVE (NEGATIVE)
[2025-01-16 07:19] LABS: GLUCOSE, URINE (UA) >=1000 mg/dL (NEGATIVE); KETONES,URINE (UA) NEGATIVE (NEGATIVE)
--- NOTE | 2025-01-16 07:47 | ED Physician Documentation ---
ED Addendum Addendum Addendum: 62-year-old female signed out to me by Dr. Zuluaga, see his note for full H&P on this patient. She is signed out awaiting a right upper quadrant ultrasound for possible cholecystitis. She has a history of adenocarcinoma, treated at [facility]. States her last chemotherapy was about a week ago. She states she is not sure when her next chemotherapy is but she thinks it is a few weeks away. She states that she has had difficulty with her gallbladder in the past, she states they talked about taking it out several years ago but never did. She still has some right upper quadrant pain but not as severe as when she first presented. Clear white blood cell count is normal, the fever resolved in the emergency department. Blood pressure improved. She was maintained on Zosyn and IV fluids. Ultrasound shows 1 area of possible trace pericholecystic fluid, but normal gallbladder wall. Unable to clearly visualize the common bile duct, but on her laboratory testing her liver function tests and bilirubin are near her normal baseline values and common bile duct did not appear significantly dilated on CT scan. Given her high risk for developing sepsis, and worsening sepsis, would place her in the hospital on IV antibiotics and reassess over the next [address]. [address] Charles, general surgery, she recommends placing in the hospital on the hospitalist service, IV antibiotics, reassessment and consider HIDA scan tomorrow versus cholecystostomy tube for possible cholecystitis. Discussed the case with Dr. Resendez, hospitalist to graciously accepts. Patient will be admitted for IV antibiotics, serial observation and further care. This document was made in part using voice recognition software. While efforts are made to proofread this document, sound alike and grammatical errors may occur. Discharge Plan Discharge Patient Disposition: 66 [facility] DC/Xfer Condition: Stable Clinical Impression: Fever, Abdominal pain Interventions: ED Admission Assessment Last Done: 01/16/25 10:36 Vitals documented within 30 minutes of discharge?: Yes
--- NOTE | 2025-01-16 08:36 | Ultrasound Report ---
PROCEDURE: US Abdomen Limited INDICATIONS: eval for cholecystitis and CBD TECHNIQUE: Real-time focused scanning was performed of the abdomen, with image documentation. COMPARISONS: None. FINDINGS: Liver: Liver is normal in size. Heterogeneously increased liver parenchymal echotexture is seen. No discrete solid appearing hepatic lesion. Gallbladder: Possible stones are noted in dependent portion of gallbladder lumen measures up to 6 mm in size. No gallbladder wall thickening. Trace amount of pericholecystic fluid and positive sonographic Benitez's sign is noted during the study. Biliary ducts: Intrahepatic bile ducts are non-dilated. Extrahepatic bile duct is not visualized due to overlying bowel gas. Pancreas: Visualized portions of the pancreas are sonographically normal. Right kidney: Right kidney is not visualized due to overlying bowel gas. Miscellaneous: No free abdominal fluid. IMPRESSION: 1. Limited study due to significant overlying bowel gas. Common bile duct and right kidney are not visualized. 2. Cholelithiasis with pericholecystic fluid and sonographic Benitez's sign suggestive of acute cholecystitis. 3. No gross biliary ductal dilatation. 4. Hepatic steatosis. No discrete hepatic lesion. Reviewed by: Albaro Montero MD on 01/16/2025 8:34 AM PDT Approved by: Albaro Montero MD on 01/16/2025 8:34 AM PDT Station ID: [id number]
[2025-01-16] MEDS: SODIUM CHLORIDE 0.9% 1,000 ML IV STA (08:53)
[2025-01-16] MEDS: ACETAMINOPHEN 325 MG TABLET PO STA (08:53)
--- NOTE | 2025-01-16 09:00 | CT Report ---
PROCEDURE: CT Abdomen/Pelvis W INDICATIONS: epigastric pain CONTRAST: 100 ML OMNI 300 TECHNIQUE: After the administration of intravenous contrast, a CT scan of the abdomen and pelvis was performed. Images were recorded and evaluated at appropriate window settings. Reformats: coronal and sagittal. For radiation dose reduction, the following was used: automated exposure control, adjustment of mA and/or kV according to patient size. COMPARISON: None. FINDINGS: Image quality: Diagnostic. Lower chest: Moderate left-sided pleural effusion with compression atelectasis.. Liver: No solid mass. Gallbladder: Enlarged gallbladder with slight amount pericholecystic fluid and gallstones. Biliary tree: Moderate dilation of the common biliary duct measuring 1 cm in diameter. Spleen: No splenomegaly. Pancreas: No pancreatic ductal dilation. Adrenals: No adrenal nodule. Kidneys and ureters: No hydronephrosis. No renal cystic lesion which requires follow up. No solid mass. Stomach, bowel and peritoneum: No gastric or small bowel dilation. No abnormal wall thickening. No pathologic free fluid. Lymph nodes: No central or retroperitoneal adenopathy. Vessels: No infrarenal aortic aneurysm. Patent portal vein. PELVIS Reproductive organs: Unremarkable. Bladder: No abnormal wall thickening. Pelvic lymph nodes: No pelvic adenopathy by size criteria. Bones: No aggressive osseous abnormality. Other: No significant ventral or inguinal hernia. IMPRESSION: 1.Dilated gallbladder with gallstones and pericholecystic fluid. Mild dilation of the common biliary duct. These findings are concerning for choledocholithiasis and/or acute cholecystitis. Consider ultrasound. 2.Left pleural effusion with adjacent consolidation likely atelectasis with infection not excluded. Reviewed by: Crescencio Knight MD on 01/16/2025 7:59 AM JESS Approved by: Crescencio Knight MD on 01/16/2025 7:59 AM JESS Station ID: [id number]
--- OUTSIDE RECORDS SUMMARY | 2025-01-16 10:18 | EXTERNAL MEDICAL SUMMARY RPT | Continuity of Care Document ---
Author Organization [facility] Address [address] [place] [id number] Phone Problems date description facility 2024-10-26 16:54 Malignant neoplasm o f unspecified part of right bronchus or lung [facility] 2024-10-26 16:54 Arthralgia of left temporomandi bular joint [facility] 2024-10-27 08:47 Constipation, unspecified [facility] 2024-10-27 08:47 Drug induced constipation [facility] 2024-10-27 08:47 Other specified diseases of mir [facility] and rectum [facility] 2024-10-27 08:47 Cellulitis of face [facility] 2024-10-27 08:47 Arthralgia of left temporomandi bular joint [facility] 2024-10-27 08:47 Low back pain, unspecified [facility] 2024-10-27 08:47 Dorsalgia, unspecified [facility] 2024-10-27 08:47 Urinary tract infection, site n ot specified [facility] 2024-10-27 08:47 Cough, unspecified [facility] 2024-10-27 08:47 Shortness of breath [facility] 2024-10-27 08:47 Pelvic and perineal pain [facility] [...] effect of other opioids , [facility] 2024-11-03 07:44 Malignant neoplasm o f unspecified part of right bronchus or lung [facility] 2024-11-03 07:44 Malignant neoplasm o f unspecified part of left bronchus or lung [facility] 2024-11-03 07:44 Type 2 diabetes mellitus withou t complications [facility] 2024-11-03 07:44 Anxiety disorder, unspecified [facility] 2024-11-03 07:44 Atherosclerotic hear t disease of [place] coronary artery without angina pectoris [facility] 2024-11-03 07:44 Other pulmonary embolism withou t acute cor pulmonale [facility] 2024-11-03 07:44 Arthralgia of left temporomandi bular joint [facility] 2024-11-16 21:54 Other muscle spasm [facility] 2024-11-17 08:07 Other [facility] spasm [facility] 2024-11-17 15:59 Other muscle spasm [facility] 2024-11-19 07:25 Pain in right shoulder [facility] 2024-11-19 07:25 Cervicalgia [facility] 2024-11-19 07:25 Headache, unspecified [facility] 2024-11-19 18:08 Cervicalgia [facility] 2024-11-19 18:08 Other muscle spasm [facility] 2024-11-26 12:52 Constipation, unspecified [facility] 2024-11-26 12:52 Drug induced constipation [facility] 2024-11-26 12:52 Other specified diseases of mir s and rectum [facility] 2024-11-26 12:52 Cellulitis of face [facility] 2024-11-26 12:52 Pain in right shoulder [facility] 2024-11-26 12:52 Arthralgia of left temporomandi bular joint [facility] 2024-11-26 12:52 Cervicalgia [facility] 2024-11-26 12:52 Low back pain, unspecified id [facility] 2024-11-26 12:52 Dorsalgia, unspecified [facility] 2024-11-26 12:52 Other muscle spasm [facility] 2024-11-26 12:52 Urinary tract infection, site n ot specified [facility] 2024-11-26 12:52 Cough, unspecified [facility] 2024-11-26 12:52 Shortness of breath [facility] 2024-11-26 12:52 Pelvic and perineal pain [facility] 2024-11-26 12:52 Unspecified abdominal pain [facility] 2024-11-26 12:52 Rash and other nonspecific skin eruption [facility] 2024-11-26 12:52 Headache, unspecified [facility] 2024-11-26 12:52 Jaw pain [facility] 2024-11-26 12:52 Abrasion of other part of head, initial encounter [facility] 2024-11-26 12:52 Unspecified injury of head, ini tial encounter [facility] 2024-11-26 12:52 Contusion of right f ront wall of thorax, initial encounter [facility] 2024-11-26 12:52 Adverse effect of other opioids , initial encounter [facility] 2024-12-01 14:26 Unspecified hearing loss, unspe cified ear [facility] 2024-12-01 14:26 Dysphonia [facility] 2024-12-01 14:32 Unspecified hearing loss, unspe cified ear [facility] 2024-12-01 14:32 Dysphonia [facility] 2024-12-01 14:58 Unspecified hearing loss, unspe cified ear [facility] 2024-12-01 14:58 Impingement syndrome of right s [place] [facility] 2024-12-01 14:58 Dysphonia [facility] 2024-12-02 09:08 Pain in right shoulder [facility] 2024-12-02 09:08 Cervicalgia [facility] 2024-12-02 09:08 Headache, unspecified [facility] 2024-12-02 14:22 [facility]gia [facility] 2024-12-06 12:59 Constipation, unspecified [facility] 2024-12-06 12:59 Drug induced constipation [facility] 2024-12-06 12:59 Other specified diseases of mri s and rectum [facility] 2024-12-06 12:59 Cellulitis of face [facility] 2024-12-06 12:59 Pain in right shoulder [facility] 2024-12-06 12:59 Arthralgia of left temporomandi bular joint [facility] 2024-12-06 12:59 Cervicalgia [facility] 2024-12-06 12:59 Low back pain, unspecified [facility] 2024-12-06 12:59 Dorsalgia, unspecified [facility] 2024-12-06 12:59 Other muscle spasm [facility] 2024-12-06 12:59 Urinary tract infection, site n ot specified [facility] 2024-12-06 12:59 Cough, unspecified [facility] 2024-12-06 12:59 Shortness of breath [facility] 2024-12-06 12:59 Pelvic and perineal pain [facility] 2024-12-06 12:59 Unspecified abdominal pain [facility] 2024-12-06 12:59 Rash and other nonspecific skin eruption [facility] 2024-12-06 12:59 [facility]ache, [facility] 2024-12-06 12:59 Jaw pain [facility] 2024-12-06 12:59 Abrasion of other part of head, initial encounter [facility] 2024-12-06 12:59 Unspecified injury of head, ini tial encounter [facility] 2024-12-06 12:59 Contusion of right f ront wall of thorax, initial encounter [facility] 2024-12-06 12:59 Adverse effect of other opioids , initial encounter [facility] 2024-12-08 11:39 Unspecified injury o f right shoulder and upper arm, initial encounter [facility] 2024-12-29 14:33 Type 2 diabetes mellitus withou t complications [facility] 2025-01-11 11:42 Shortness of breath [facility] Results/Labs test date facility value unit notes Result panel 1 NUCLEATED RED BLOOD CELLS AUTO 2025-01-07 17:33 [facility] 0.0 /100wbc (missing) BASOPHILS # (AUTO) 2025-01-07 17:33 [facility] 0.0 10 3/ul (missing) NRBC ABSOLUTE COUNT (AUTO) 2025-01-07 17:33 [facility] 0.00 x10 3/ul (missing) EOSINOPHILS # (AUTO) 2025-01-07 17:33 [facility] 0.1 10 3/ul (missing) CREATININE 2025-01-07 17:33 [facility] 0.4 mg/dl As of December 2022 testing method has changed, this may include reference ranges. MONOCYTES # (AUTO) 2025-01-07 17:33 [facility] 0.7 10 3/ul (missing) LYMPHOCYTES # (AUTO) 2025-01-07 17:33 [facility] 1.8 10 3/ul (missing) BUN - BLOOD UREA NITROGEN 2025-01-07 17:33 [facility] 10 mg/dl As of Dec testing method has changed, this may include reference ranges. CALCIUM 2025-01-07 17:33 [facility] 10.1 mg/dl As of December 2022 testing method has changed, this may include reference ranges. CHLORIDE 2025-01-07 17:33 [facility] 104 mmol/l As of December 2022 testing method has changed, this may include reference ranges. HGB - HEMOGLOBIN 2025-01-07 17:33 [facility] 11.3 g /dl (missing) SODIUM 2025-01-07 17:33 [facility] 138 mmol/l (missing) RED CELL DISTRIBUTION WIDTH 2025-01-07 17:33 [employer] 14.0 % (missing) GFR - MDRD 2025-01-07 17:33 [facility] 159 (missin g) Social History date description facility
--- NOTE | 2025-01-16 10:31 | HISTORY & PHYSICAL EXAMINATION ---
Chief Complaint Chief Complaint Chief Complaint: epigastric abd pain for 3 days History of Present Illness History Obtained From Records Reviewed: [facility] History obtained from: patient and ER MD Exam Limitations: sleepy and tired History of Present Illness HPI Comment/Other: Presents with abdominal pain in the context of ongoing lung cancer. Past medical history significant +Stage I adenocarcinoma of the right lower lung treated surgically with VATS right lower lobectomy in 01/2011. +She had a bout of thyroid cancer in 2017 treated with radiation. In 2021 she had a 2 cm left thyroid mass. Fine-needle aspiration benign in June 2022. PET scan in January 2023 continues to show a hypermetabolic nodule and she is being monitored with TSH. +She was diagnosed with a pT1c pN0 ER positive/ NE positive/ HER2/king negative intermediate grade invasive ductal carcinoma of the right breast in July 2020. She has had a right breast lumpectomy and sentinel lymph node biopsy. She received adjuvant radiation therapy but no chemotherapy or endocrine therapy. +A left upper lung lesion was being monitored at that time and in April 2022 was diagnosed as stage IIIc adenocarcinoma of the left lung diagnosed in May 2022. She completed RT of left upper lung. She has been on pembrolizumab with pemetrexed and carboplatin 21 day cycle. Treatment goal is control. Immunotherapy was added to her regimen in July 2023. By July 2024 she progressed to stage Mami with metastatic disease to the other lung. Her last therapy was 1-1/2 weeks ago. +Markers are positive for genetic lineage with inheritance from parents. As this woman has been treated for her lung cancer has had a series of staging CT scans, she has had several CT scans that have pulmonary emboli. 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 While in treatment, she has had pneumonia in August 2024. She was so weak she fell in her garage with this. She has terrible back pain and is using Robaxin and Dilaudid as well as Voltaren gel and Flexeril. She has been using a wheelchair since her fall in her garage associated with her pneumonia. Evaluation for her back pain and follow-up with an MRI shows her to have spinal stenosis in the lumbar region. She fell again in November 2024 and has back, shoulder and arm pain with difficulty sleeping at night. Seen January 07 in the emergency room for shortness of breath. She had a left pleural effusion that was treated with a thoracentesis. And she felt better breathing escobar. She then presented to the emergency room in the pot reliner hours of today because she developed gradually worsening epigastric abdominal pain since January 14. It comes and goes, radiates to her back. Vomiting started on January 15. Is continued into today. She denies fever, chills, change in the color of her urine. Because she has a history of coronary artery disease (MA in 2002 with 2 sents and she says two more stents 2019), EMS gave her aspirin, Nitropaste and Zofran prior to bring her to the emergency room. In the ER she was afebrile at 36.9. Respirations were 22. Blood pressure 151/107. 96% on room air. She was ill-appearing in acute distress and could not get comfortable on the gurney. She had significant epigastric and right upper quadrant tenderness with exam but there is no rebound or guarding. She had normal bowel sounds. White cell count was 8.9. Liver enzymes were newly elevated with a total bili of 2.0. Direct bili 0.65. GGT is 72, AST is 66, ALT is 56. Alk phos 101. Lipase 24. Ultrasound was done and she has common bile duct and right kidney not being able to be evaluated. Cholelithiasis with pericholecystic fluid and a positive Benitez sign suggesting acute cholecystitis. No gross biliary ductal dilatation. A follow-up abdomen pelvis CT has a dilated gallbladder with gallstones and pericholecystic fluid. Mild dilation of the common bile duct. These are concerning for choledocholithiasis and acute cholecystitis. A left pleural effusion with adjacent consolidation likely atelectasis with infection that cannot be excluded. Her oncologist is Dr. Bran at [facility]. And [place]. [place] was last seen December 29 for her follow-up of her medical problems. Discussed the case with general surgery. This is a very complicated patient. Our pulmonary plan is to start her on antibiotics, and hopefully consult with radiology for IR drainage of the gallbladder. I am also ordering an MRCP to assess her common bile duct. She is on Eliquis for history of pulmonary emboli. I am stopping that and switching her over to Lovenox. Meds/Allgy Home Medications Ambulatory Orders Medication Instructions Recorded Confirmed atorvastatin 40 mg tablet 40 mg PO QPM 02/24/19 metformin 500 mg tablet 500 mg PO BID 02/24/1901/16 Nebulizer And Compressor #1 ea 07/12/23 01/16/25 [Compressor Nebulizer System] albuterol sulfate 2.5 mg/3 mL 2.5 mg (3 mL) inhalation Q4H PRN 07/12/23 01/16/25 (0.083 %) solution for nebulization Wheezing #30 mL albuterol sulfate 90 mcg/actuation 1 - 2 puff inhalati on Q4HR PRN 07/12/23 01/16/25 aerosol inhaler (Ventolin HFA) Shortness Of Air/Wheezi ng insulin glargine 100 unit/mL (3 20 unit subcut QDBREAK FAST 04/29/24 01/16/25 mL) subcutaneous pen (Lantus Solostar U-100 Insulin) potassium chloride 20 mEq 20 meq PO DAILY 04/29/2404/02 tablet,extended release (K-Tab) cyclobenzaprine 10 mg tablet 10 mg PO TID #90 tabs 01/16/25 empagliflozin 25 mg tablet 25 mg PO DAILY #90 tabs 01/16/25 (Jardiance) levothyroxine 75 mcg tablet 75 mcg PO QDAY #90 tabs 01/16/25 apixaban 5 mg tablet (Eliquis) 5 mg PO BID #180 tabs 1 07/04/23 01/16/25 folic acid 1 mg tablet 1 mg PO QDAY 07/27/24 inhalational spacing device 07/27/24 01/16/25 (Aerochamber MV spacer) pen needle, diabetic 31 gauge x 07/27/24 01/16/25 3/16" (Droplet Pen Needle) syringe with needle 3 mL 25 gauge 07/27/24 01/16/25 x 1" (Monoject 3cc Syringe) methocarbamol 750 mg tablet 750 mg PO QID 5 days #20 t abs 11/16/24 01/16/25 dulaglutide 1.5 mg/0.5 mL 0.5 mg subcut .COMPLEX 01/0701/16/25 subcutaneous pen injector (Trulicity) furosemide 40 mg tablet 40 mg PO QDAY 01/07/2501/16 hydromorphone 2 mg tablet 2 mg PO Q4H PRN pain 5 01/16/25 sertraline 100 mg tablet 100 mg PO DAILY 01/07/2504/02 amoxicillin 875 mg-potassium 1 tab PO BID 01/16/2504/02 clavulanate 125 mg tablet benzonatate 100 mg capsule 100 mg PO HS 01/16/2501/16 dexamethasone 4 mg tablet 8 mg PO BID CHEMO INDUCED NA USEA 01/16/25 01/16/25 diazepam 2 mg tablet (Valium) 2 mg PO Q8H PRN anxiety 01/16/25 01/16/25 gabapentin 300 mg capsule 900 mg PO TID PAIN 01/16/25 01/16/25 meloxicam 15 mg tablet 15 mg PO DAILY PRN pain 01/0701/16/25 methylprednisolone 4 mg tablets in See Rx Instructions PO .COMPLEX 01/16/25 a dose pack (Medrol (Du)) oxycodone-acetaminophen 5 mg-325 1 tab PO Q6H PRN pain 01/16/25 01/16/25 mg tablet pantoprazole 20 mg tablet,delayed See Rx Instructions .Route .COMPLEX 01/16/25 01/16/25 release valacyclovir 1 gram tablet 1,000 mg PO TID 01/16/25 Allergies Allergies Allergy/AdvReac Type Severity Reaction Status Date / Time codeine AdvReac Severe projectile Verified 01/16/25 03:29 vomiting duloxetine AdvReac Severe Nausea Verified 01/16/25 03:29 niacin AdvReac Severe Itching Verified 01/16/25 03:29 Opioids - Morphine Analogues AdvReac Severe Emesis/Itch Verified 01/16/25 03:29 ing propoxyphene (From Darvon) AdvReac Severe Itching Verified 01/16/25 03:29 ketamine AdvReac Nausea Verified 01/16/25 03:29 PFSH Active Problems All Active Problems (Updated 01/16/25 @ 18:57 by Magaly Resendez MD) Do not resuscitate (Acute) Type 2 diabetes mellitus, controlled (Acute) Acute cholecystitis with acute cholangitis (Acute) Chronic dyspnea (Acute) Metastatic primary lung cancer (Acute) Hiatal hernia with gastroesophageal reflux (Acute) Arthralgia (Acute) Fatigue (Acute) Internal derangement of left knee (Acute) Cervical radiculopathy at C5 (Acute) Rectal bleeding (Acute) Lymphedema due to radiation (Acute) Knee pain, right (Acute) Toe pain, left (Acute) Back pain, thoracic (Acute) Cellulitis of abdominal wall (Acute) Hypokalemia (Acute) Chest wall pain (Acute) Hoarseness (Acute) Wrist pain (Acute) Fibromyalgia (Acute) Diabetes mellitus type 2, controlled, without complications (Acute) Migraine (Acute) PTSD (post-traumatic stress disorder) (Acute) Anxiety (Acute) Thyroid nodule (Acute) Polycythemia vera (Acute) Lumbar spinal stenosis (Acute) Hypertension, essential, benign (Acute) Hypothyroidism (Acute) B12 deficiency (Acute) CAD (coronary artery disease) (Acute) Chronic low back pain (Acute) Pulmonary embolism (Acute) Pleural effusion, malignant (Acute) Jaw pain (Acute) Dysphagia (Acute) Impingement syndrome of right shoulder (Acute) Depression (Acute ~04/2024) Hyperlipidemia (Acute) Contusion, buttock (Acute) Medical History Medical History (Updated 01/16/25 @ 18:57 by Magaly Resendez MD) History of thyroid cancer s/p radioablation x2 (2018), s/p surgery and Opioid-induced constipation Ground-level fall (~11/17/24) head strike/right shoulder strike - negative imaging Adenocarcinoma of right breast IDC, multifocal pT1c N0(sn), G3, ER+/NE+/Her2-, recurrence score 18. s/p BCT/RT. No endocrine or chemotherapy Hx of acute myocardial infarction (~2002) x2 stents [2nd MA in 2020 with additional stent?] Fatty liver disease, nonalcoholic Rotator cuff tear, right Surgical History Surgical History (Updated 01/16/25 @ 10:57 by Paula Charles DO) History of lumpectomy of right breast (~09/04/20) with [facility], Dr. Warren/[facility] History of hand surgery (~09/09/22) LEFT hand: ganglion cyst removal, trigger finger release third digit History of insertion of tunneled central venous catheter (CVC) with port (~05/19/23) History of esophagogastroduodenoscopy (EGD) (~07/08/24) Oleg Lundberg History of colonoscopy (~07/08/22) Oleg Lundberg History of bronchoscopy (~05/2023) biopsy/brushings History of surgery on lower extremity R ankle ORIF; subsequent hardware removal History of hysterectomy (~1992) History of cataract surgery (~11/2021) History of x2 History of lobectomy of lung (~2010) Right lower lobectomy for Stage 1 adenocarcinoma History of coronary artery stent placement (~2002) x2 stents Family History Family History (Updated 01/16/25 @ 18:27 by Magaly Resendez MD) Father Lung cancer Mother No problems noted. Brother Prostate cancer Brother Prostate cancer Brother Head and neck cancer Daughter Well adult exam Daughter Well adult exam Social History Social History (Updated 01/16/25 @ 18:48 by Magaly Resendez MD) Smoking Status: Former smoker If you are a former smoker, when did you quit? (Date/Year): 2002 Number of Years Smoked: 30 How many cigarettes a day do you smoke? (20 cigarettes=1 Pk): 30 Do you dip or chew tobacco?: No Do you vape?: No Patient requests smoking cessation consult: No Initiate information on smoking cessation: No Living arrangement: At home Living Condition: With family More Information: She lives with her daughter ever since her in 2013 Support Person: Yes Relationship: Child Living Situation Details: He has 2 daughters. 1 daughter is not really in her life. Physical Activity: None Physical - Functional Details: Uses walker or wheelchair when she has to walk long distances Do you feel safe in your home environment?: Yes Suffered physical, verbal, emotional, or financial abuse?: No History of Abuse: No Frequency: Occasional Substance Use: denies use Occupation: worked at [employer] for yrs. Disabled due to back pain/cancer tx 2012. Retired: Yes Known occupational exposures/hazards (Current/Previous): 2nd hand hand smoke POLST Patient has POLST: No Review of Systems Status of ROS: 10 or more systems reviewed and unremarkable except as noted in history and below Constitutional Reports: Fatigue, Fever and Chills Eyes Denies: Pain or Field loss Ears, nose, mouth, and throat Denies: Throat pain or Neck pain Cardiovascular Denies: Irregular heart rate, chest pain, palpitations, edema, swelling of feet/ankles, Syncope, lightheadedness or shortness of breath with exertion Respiratory Denies: Shortness of breath, Cough, Sputum production or Change in phlegm color Gastrointestinal Reports: Abdominal pain, Abdominal distention, Nausea, Vomiting and Poor appetite Genitourinary Reports: Urinary frequency, Urinary urgency and Urinary incontinence; Denies: Painful urination or Nocturia Musculoskeletal Denies: Neck pain Integumentary/Breast Denies: Rash Neurological Reports: General weakness; Denies: Headache, Focal weakness, Weakness in extremities or Numbness in extremities Psychiatric Reports: Depression Endocrine Reports: Fatigue Hematologic/Lymphatic Denies: Anemia Allergic/Immunologic Denies: Hives Prior Level of Functionality: Sometimes if walks long distances she uses a walker. Or a wheelchair. But at home independent with dressing, bathing, feeding. Lives in her daughter's house since her 's in 2013 Exam Exam Vital Signs: Vital Signs x48h Temp Pulse Resp BP Pulse Ox 01/16/25 17:23 37.3 C 01/16/25 16:30 38.1 C H 01/16/25 16:10 37.8 C 72 21 124/63 96 01/16/25 11:00 36.7 C 91 20 105/60 90 L Constitutional A 5 foot 4 inch white female who is 76 kg, appears moderately overweight. Nessa dyed purple/pink hair. Sluggish but wakes easily and answers my questions appropriately. Of intermittent colicky epigastric and right upper quadrant pain. Otherwise comfortable [facility] normocephalic and head/scalp atraumatic Eyes PERRL and no scleral icterus Neck/C-Spine no carotid bruits Lymph no lymphadenopathy noted Chest inspection of chest normal Thickened right breast area for she says she has had her cancer Respiratory breath sounds equal bilaterally, normal respiratory effort, clear to auscultation bilaterally, no wheezes and no rales Cardiovascular normal heart rate noted and regular rhythm noted Gastrointestinal abdomen normal to inspection and abdomen soft to palpation Tenderness in the epigastrium and right upper quadrant that makes her very uncomfortable but no rebound or guarding Genitourinary no CVA tenderness Back/Pelvis spine normal to inspection and no thoracic spine tenderness Extremities normal to inspection, normal to palpation, no tenderness and full ROM Psychiatry mental status grossly normal Skin skin color normal, no rash and no jaundice Sepsis Event Note (H) Evaluation Possible source of Sepsis: positive GI tract/intra-abdominal Conclusion/Plan Problem List (1) Acute cholecystitis with acute cholangitis: Plan: This nessa lady is in the midst of chemo and treatment for metastatic lung cancer. She just had a thoracentesis. Now there is an acute complication superimposed on top of all of her other illnesses and she feels overwhelmed. Understandably so. Plan: Inpatient status on the basis of acute cholangitis with C-reactive protein elevated at 2.6. Recurrent fever spikes today at 39.4, 38.5, and 38.1. She has evidence of common bile duct disease with a bili greater than or equal to 2. Rising liver function studies. She also has acute cholecystitis with right upper quadrant pain, fever, elevated C-reactive protein, imaging consistent with acute cholecystitis, and cholecystectomy is not anticipated during this stay. Criteria for sepsis do not completely meet. She does have a fever and an elevated lactic acid but no hypoxia, no tachycardia, and hemodynamically stable. I have started her on Zosyn for single agent therapy. Blood cultures are already reported positive at less than 6 hours. She has 1 of 2 bottles growing gram- negative rods. Plan is for MRCP in the morning. If she has a common bile duct stone she will need to be transferred. If she does not have a common bile duct stone I will be asking our radiologist to do intervention for percutaneous drainage of her gallbladder. I have ordered a daily CBC and CRP and CMP with liver enzymes (2) Metastatic primary lung cancer: Plan: Current ongoing treatment with recent left thoracentesis. Left pleural cytology sent January 07 was received January 11. She has scattered histiocytes and mesothelial cells but no malignancy identified.She is 1/2 weeks out of chemotherapy. She is not neutropenic thank goodness. But she is immunocompromised. (3) Pulmonary embolism: Plan: Because she may be anticipating a procedure, I have stopped her Eliquis. And I am converting her to Lovenox to bridge her. (4) Type 2 diabetes mellitus, controlled: Plan: She usually takes Lantus 20 and I will be giving her Lantus 10 because she is NPO. She also usually takes Trulicity and empagliflozin. I will be giving her short acting insulin sliding scale every 6 hours.Monitor potassium and magnesium (5) Do not resuscitate: Plan: States that she wants everything done in acute treatment. She would like blood transfusions, surgeries, antibiotics, pressors, and even BiPAP. However, if she stops breathing because of severe illness or her heart stops beating, she does not want to be resuscitated. (6) Chronic low back pain: Plan: She takes oxycodone with acetaminophen up to 30 morphine equivalents a day. I am ordering Dilaudid 1 mg every 2 hours as needed for pain and will adjust this on the basis of pain relief for her. Lab Results 01/16/25 03:23 01/16/25 03:23
[2025-01-16] MEDS ORDERED: ALBUTEROL NEB 2.5 MG/3 ML INH PRN ×2 (10:50)
[2025-01-16] MEDS ORDERED: HYDROmorphone 0.5 MG/0.5 ML SYRINGE IVP PRN (10:50)
[2025-01-16] MEDS ORDERED: ONDANSETRON ODT 4 MG TABLET TL PRN (10:50)
[2025-01-16] MEDS ORDERED: SODIUM CHLORIDE FLUSH 0.9% 10 ML SYRINGE IVP PRN (10:50)
[2025-01-16] MEDS ORDERED: ONDANSETRON 4 MG/2 ML VIAL IVP PRN (10:50)
--- NOTE | 2025-01-16 11:02 | CONSULTATION NOTE ---
History of Present Illness History of Present Illness HPI Comment/Other: 70yoF developed pain on [place] night (36hrs ago) after eating [place] dinner. She threw up multiple times, followed by anorexia. Denies diarrhea. Pain felt similar to prior heart attacks - substernal "like someone was standing on me with a stiletto". The pain and vomiting persisted, she was unable to sleep, and thus presented to the ED. With pain medication and abx in the ED, her pain is now tolerable if she does not move. PFS Active Problems All Active Problems (Updated 01/16/25 @ 11:21 by Paula Charles DO) Acute cholecystitis with acute cholangitis (Acute) Chronic dyspnea (Acute) Metastatic primary lung cancer (Acute) Hiatal hernia with gastroesophageal reflux (Acute) Arthralgia (Acute) Fatigue (Acute) Internal derangement of left knee (Acute) Cervical radiculopathy at C5 (Acute) Rectal bleeding (Acute) Lymphedema due to radiation (Acute) Knee pain, right (Acute) Toe pain, left (Acute) Back pain, thoracic (Acute) Cellulitis of abdominal wall (Acute) Hypokalemia (Acute) Chest wall pain (Acute) Hoarseness (Acute) Wrist pain (Acute) Fibromyalgia (Acute) Diabetes mellitus type 2, controlled, without complications (Acute) Migraine (Acute) PTSD (post-traumatic stress disorder) (Acute) Anxiety (Acute) Thyroid nodule (Acute) Polycythemia vera (Acute) Lumbar spinal stenosis (Acute) Hypertension, essential, benign (Acute) Hypothyroidism (Acute) B12 deficiency (Acute) CAD (coronary artery disease) (Acute) Chronic low back pain (Acute) Pulmonary embolism (Acute) Pleural effusion, malignant (Acute) Jaw pain (Acute) Dysphagia (Acute) Impingement syndrome of right shoulder (Acute) Depression (Acute ~04/2024) Hyperlipidemia (Acute) Contusion, buttock (Acute) Medical History Medical History (Updated 01/16/25 @ 11:21 by Paula Charles DO) Hx of acute myocardial infarction (~2002) x2 stents [2nd MO in 2019 with additional stent?] History of thyroid cancer s/p radioablation x2 (2018), s/p surgery and Adenocarcinoma of right breast IDC, multifocal pT1c N0(sn), G3, ER+/MN+/Her2-, recurrence score 18. s/p BCT/RT. No endocrine or chemotherapy Fatty liver disease, nonalcoholic Opioid-induced constipation Ground-level fall (~11/17/24) head strike/right shoulder strike - negative imaging Rotator cuff tear, right Surgical History Surgical History (Updated 01/16/25 @ 10:57 by Paula Charles DO) History of lumpectomy of right breast (~09/04/20) with [facility], Dr. Warren[facility] History of hand surgery (~09/09/22) LEFT hand: ganglion cyst removal, trigger finger release third digit History of insertion of tunneled central venous catheter (CVC) with port (~05/19/23) History of esophagogastroduodenoscopy (EGD) (~07/08/24) Oleg Lundberg History of colonoscopy (~07/08/22) Oleg Lundberg History of bronchoscopy (~05/2023) biopsy/brushings History of surgery on lower extremity R ankle ORIF; subsequent hardware removal History of hysterectomy (~1992) History of cataract surgery (~11/2021) History of x2 History of lobectomy of lung (~2010) Right lower lobectomy for Stage 1 adenocarcinoma History of coronary artery stent placement (~2002) x2 stents Family History Family History (Updated 01/16/25 @ 11:19 by Magaly Resendez MD) Father Lung cancer Mother No problems noted. Brother Prostate cancer Brother Prostate cancer Brother Head and neck cancer Social History Social History Smoking Status: Former smoker If you are a former smoker, when did you quit? (Date/Year): 2002 Number of Years Smoked: 30 How many cigarettes a day do you smoke? (20 cigarettes=1 Pk): 30 Do you dip or chew tobacco?: No Do you vape?: No Patient requests smoking cessation consult: No Initiate information on smoking cessation: No Living arrangement: At home Living Condition: With family Support Person: Yes Relationship: Physical Activity: None Do you feel safe in your home environment?: Yes Suffered physical, verbal, emotional, or financial abuse?: No History of Abuse: No Frequency: Occasional Substance Use: denies use Occupation: worked at [employer] for yrs. Disabled due to back pain. Retired: Yes POLST Patient has POLST: No Meds/Allgy Home Medications Ambulatory Orders Medication Instructions Recorded Confirmed atorvastatin 40 mg tablet 40 mg PO QPM 02/24/19 metformin 500 mg tablet 500 mg PO BID 02/24/1901/16 Nebulizer And Compressor #1 ea 07/12/23 01/16/25 [Compressor Nebulizer System] albuterol sulfate 2.5 mg/3 mL 2.5 mg (3 mL) inhalation Q4H PRN 07/12/23 01/16/25 (0.083 %) solution for nebulization Wheezing #30 mL albuterol sulfate 90 mcg/actuation 1 - 2 puff inhalati on Q4HR PRN 07/12/23 01/16/25 aerosol inhaler (Ventolin HFA) Shortness Of Air/Wheezi ng insulin glargine 100 unit/mL (3 20 unit subcut QDBREAK FAST 04/29/24 01/16/25 mL) subcutaneous pen (Lantus Solostar U-100 Insulin) potassium chloride 20 mEq 20 meq PO BID 04/29/2401/16 tablet,extended release (K-Tab) cyclobenzaprine 10 mg tablet 10 mg PO TID #90 tabs 01/16/25 empagliflozin 25 mg tablet 25 mg PO DAILY #90 tabs 01/16/25 (Jardiance) levothyroxine 75 mcg tablet 75 mcg PO QDAY #90 tabs 01/16/25 apixaban 5 mg tablet (Eliquis) 5 mg PO BID #180 tabs 1 07/04/23 01/16/25 folic acid 1 mg tablet 1 mg PO QDAY 07/27/24 inhalational spacing device 07/27/24 01/16/25 (Aerochamber MV spacer) pen needle, diabetic 31 gauge x 07/27/24 01/16/25 3/16" (Droplet Pen Needle) syringe with needle 3 mL 25 gauge 07/27/24 01/16/25 x 1" (Monoject 3cc Syringe) pantoprazole 20 mg tablet,delayed See Rx Instructions .Route 10/26/24 01/16/25 release .COMPLEX #180 tabs methocarbamol 750 mg tablet 750 mg PO QID 5 days #20 t abs 11/16/24 01/16/25 dulaglutide 1.5 mg/0.5 mL 0.5 mg subcut QWEEK 01/07/25 01/16/25 subcutaneous pen injector (Trulicity) furosemide 40 mg tablet 40 mg PO QDAY 01/07/2501/16 hydromorphone 2 mg tablet 2 mg PO Q4H PRN pain 5 01/16/25 sertraline 100 mg tablet 100 mg PO DAILY 01/07/2504/02 Allergies Allergies Allergy/AdvReac Type Severity Reaction Status Date / Time codeine AdvReac Severe projectile Verified 01/16/25 03:29 vomiting duloxetine AdvReac Severe Nausea Verified 01/16/25 03:29 niacin AdvReac Severe Itching Verified 01/16/25 03:29 Opioids - Morphine Analogues AdvReac Severe Emesis/Itch Verified 01/16/25 03:29 ing propoxyphene (From Darvon) AdvReac Severe Itching Verified 01/16/25 03:29 ketamine AdvReac Nausea Verified 01/16/25 03:29 Results Lab Results 01/16/25 03:23 01/16/25 03:23 Other Lab Results: Lab Results x24hrs 01/16/25 01/16/25 01/16/25 Range/Units 06:59 06:53 03:23 WBC 8.9 (4.8-10.8) x10^3/uL RBC 4.18 L (4.20-5.40) 10^6/uL Hgb 12.6 (12.0-16.0) g/dL Hct 39.7 (37.0-47.0) % MCV 95.0 (81.0-99.0) fL MCH 30.1 (27.0-31.0) pg MCHC 31.7 L (32.0-36.0) g/dL RDW 14.6 (12.0-15.0) % Plt Count 252 (130-450) 10^3/uL MPV 8.9 (7.9-10.8) fL Neut # (Auto) 7.3 H (1.5-6.6) 10^3/uL Lymph # (Auto) 1.3 L (1.5-3.5) 10^3/uL [place] # (Auto) 0.1 (0.0-1.0) 10^3/uL Eos # (Auto) 0.1 (0.0-0.7) 10^3/uL Baso # (Auto) 0.0 (0.0-0.1) 10^3/uL Absolute Nucleated RBC 0.00 x10^3/uL Nucleated RBC % 0.0 /100WBC Sodium 137 (135-145) mmol/L Potassium 3.5 (3.5-4.5) mmol/L Chloride 100 L (101-111) mmol/L Carbon Dioxide 27 (21-32) mmol/L Anion Gap 10.0 (6-13) BUN 11 (6-20) mg/dL Creatinine 0.5 L (0.6-1.3) mg/dL Estimated GFR (MDRD) 123 (>89) Glucose 157 H (74-104) mg/dL Lactic Acid 2.8 H (0.5-2.2) mmol/L Calcium 9.5 (8.5-10.3) mg/dL Total Bilirubin 2.0 H (0.2-1.0) mg/dL Direct Bilirubin (0.03-0.18) mg/dL GGT (9-64) IU/L AST 66 H (10-42) IU/L ALT 56 (10-60) IU/L Alkaline Phosphatase 101 (42-121) IU/L Troponin I High Sens 6.2 (2.3-14.8) ng/L C-Reactive Protein 2.6 H (<0.5) mg/dL Total Protein 7.0 (6.4-8.9) g/dL Albumin 3.9 (3.2-5.5) g/dL Globulin 3.1 (2.1-4.2) g/dL Albumin/Globulin Ratio 1.3 (1.0-2.2) Lipase 24 (11-82) U/L Urine Color YELLOW Urine Clarity CLEAR (CLEAR) Urine pH 7.5 (5.0-7.5) PH Ur Specific [place] 1.005 (1.002-1.030) Urine Protein NEGATIVE (NEGATIVE) mg/dL Urine Glucose (UA) >=1000 H (NEGATIVE) mg/dL Urine Ketones NEGATIVE (NEGATIVE) mg/dL Urine Occult Blood NEGATIVE (NEGATIVE) Urine Nitrite NEGATIVE (NEGATIVE) Urine Bilirubin NEGATIVE (NEGATIVE) Urine Urobilinogen 0.2 (NORMAL) (NORMAL) E.U./dL Ur Leukocyte Esterase NEGATIVE (NEGATIVE) Ur Microscopic Review NOT INDICATED Urine Culture Comments NOT INDICATED 01/16/25 Range/Units 03:11 WBC (4.8-10.8) x10^3/uL RBC (4.20-5.40) 10^6/uL Hgb (12.0-16.0) g/dL Hct (37.0-47.0) % MCV (81.0-99.0) fL MCH (27.0-31.0) pg MCHC (32.0-36.0) g/dL RDW (12.0-15.0) % Plt Count (130-450) 10^3/uL MPV (7.9-10.8) fL Neut # (Auto) (1.5-6.6) 10^3/uL Lymph # (Auto) (1.5-3.5) 10^3/uL [place] # (Auto) (0.0-1.0) 10^3/uL Eos # (Auto) (0.0-0.7) 10^3/uL Baso # (Auto) (0.0-0.1) 10^3/uL Absolute Nucleated RBC x10^3/uL Nucleated RBC % /100WBC Sodium (135-145) mmol/L Potassium (3.5-4.5) mmol/L Chloride (101-111) mmol/L Carbon Dioxide (21-32) mmol/L Anion Gap (6-13) BUN (6-20) mg/dL Creatinine (0.6-1.3) mg/dL Estimated GFR (MDRD) (>89) Glucose (74-104) mg/dL Lactic Acid (0.5-2.2) mmol/L Calcium (8.5-10.3) mg/dL Total Bilirubin (0.2-1.0) mg/dL Direct Bilirubin 0.65 H (0.03-0.18) mg/dL GGT 72 H (9-64) IU/L AST (10-42) IU/L ALT (10-60) IU/L Alkaline Phosphatase (42-121) IU/L Troponin I High Sens (2.3-14.8) ng/L C-Reactive Protein (<0.5) mg/dL Total Protein (6.4-8.9) g/dL Albumin (3.2-5.5) g/dL Globulin (2.1-4.2) g/dL Albumin/Globulin Ratio (1.0-2.2) Lipase (11-82) U/L Urine Color Urine Clarity (CLEAR) Urine pH (5.0-7.5) PH Ur Specific [place] (1.002-1.030) Urine Protein (NEGATIVE) mg/dL Urine Glucose (UA) (NEGATIVE) mg/dL Urine Ketones (NEGATIVE) mg/dL Urine Occult Blood (NEGATIVE) Urine Nitrite (NEGATIVE) Urine Bilirubin (NEGATIVE) Urine Urobilinogen (NORMAL) E.U./dL Ur Leukocyte Esterase (NEGATIVE) Ur Microscopic Review Urine Culture Comments Diagnostic Imaging Results Diagnostic Imaging Results: positive Read contemporaneously Diagnostic Imaging Results Comments: EXAM: [id number] CT/ABPEW ([id number]) PROCEDURE: CT Abdomen/Pelvis W INDICATIONS: epigastric pain CONTRAST: 100 ML OMNI 300 TECHNIQUE: After the administration of intravenous contrast, a CT scan of the abdomen and pelvis was performed. Images were recorded and evaluated at appropriate window settings. Reformats: coronal and sagittal. For radiation dose reduction, the following was used: automated exposure control, adjustment of mA and/or kV according to patient size. COMPARISON: None. FINDINGS: Image quality: Diagnostic. Lower chest: Moderate left-sided pleural effusion with compression atelectasis.. Liver: No solid mass. Gallbladder: Enlarged gallbladder with slight amount pericholecystic fluid and gallstones. Biliary tree: Moderate dilation of the common biliary duct measuring 1 cm in diameter. Spleen: No splenomegaly. Pancreas: No pancreatic ductal dilation. Adrenals: No adrenal nodule. Kidneys and ureters: No hydronephrosis. No renal cystic lesion which requires follow up. No solid mass. Stomach, bowel and peritoneum: No gastric or small bowel dilation. No abnormal wall thickening. No pathologic free fluid. Lymph nodes: No central or retroperitoneal adenopathy. Vessels: No infrarenal aortic aneurysm. Patent portal vein. PELVIS Reproductive organs: Unremarkable. Bladder: No abnormal wall thickening. Pelvic lymph nodes: No pelvic adenopathy by size criteria. Bones: No aggressive osseous abnormality. Other: No significant ventral or inguinal hernia. IMPRESSION: 1.Dilated gallbladder with gallstones and pericholecystic fluid. Mild dilation of the common biliary duct. These findings are concerning for choledocholithiasis and/or acute cholecystitis. Consider ultrasound. 2.Left pleural effusion with adjacent consolidation likely atelectasis with infection not excluded. Reviewed by: Crescencio Knight MD on 01/16/2025 7:59 AM AKDT Approved by: Crescencio Knight MD on 01/16/2025 7:59 AM AKDT EXAM: [id number] US/ABDLTD ([id number]) PROCEDURE: US Abdomen Limited INDICATIONS: eval for cholecystitis and CBD TECHNIQUE: Real-time focused scanning was performed of the abdomen, with image documentation. COMPARISONS: None. FINDINGS: Liver: Liver is normal in size. Heterogeneously increased liver parenchymal echotexture is seen. No discrete solid appearing hepatic lesion. Gallbladder: Possible stones are noted in dependent portion of gallbladder lumen measures up to 6 mm in size. No gallbladder wall thickening. Trace amount of pericholecystic fluid and positive sonographic Benitez's sign is noted during the study. Biliary ducts: Intrahepatic bile ducts are non-dilated. Extrahepatic bile duct is not visualized due to overlying bowel gas. Pancreas: Visualized portions of the pancreas are sonographically normal. Right kidney: Right kidney is not visualized due to overlying bowel gas. Miscellaneous: No free abdominal fluid. IMPRESSION: 1. Limited study due to significant overlying bowel gas. Common bile duct and right kidney are not visualized. 2. Cholelithiasis with pericholecystic fluid and sonographic Benitez's sign suggestive of acute cholecystitis. 3. No gross biliary ductal dilatation. 4. Hepatic steatosis. No discrete hepatic lesion. Reviewed by: Albaro Sage MD on 01/16/2025 8:34 AM PDT Approved by: Albaro Sage MD on 01/16/2025 8:34 AM PDT Review of Systems Status of ROS: 10 or more systems reviewed and unremarkable except as noted in history and below Exam Exam Vital Signs: Vital Signs x48h Temp Pulse Resp BP Pulse Ox O2 Flow Rate 01/16/25 10:21 37.5 C 01/16/25 10:05 37.5 C 93 20 117/66 91 L 01/16/25 09:00 94 17 119/69 92 01/16/25 08:00 38.5 C H 95 20 135/75 H 95 01/16/25 07:02 99 24 126/85 97 1 01/16/25 06:22 39.4 C H 97 26 H 100/64 93 01/16/25 05:00 71 12 122/68 97 1 01/16/25 04:27 69 18 148/79 H 97 1 01/16/25 03:48 60 15 150/75 H 96 01/16/25 03:33 37.5 C 70 19 96 01/16/25 03:01 36.9 C 65 22 151/107 H 96 Constitutional normal general appearance and distress noted (due to pain) (mild) HENMT normocephalic Eyes no scleral icterus Neck/C-Spine visual inspection normal Respiratory normal respiratory effort Cardiovascular heart rate abnormal (tachycardic) Gastrointestinal abdomen soft to palpation soft, moderately distended, no lower abdominal pain, mild LUQ pain, focal RUQ peritonitis with positive murpheys sign Extremities normal to inspection Neurology no movement abnormality noted and GCS 15 Psychiatry mental status grossly normal and oriented x3 Skin skin color normal Conclusion/Plan Problem List (1) Acute cholecystitis with acute cholangitis: Plan: 70F admitted with sepsis due to acute cholecystitis with suspected acute cholangitis. In the ER she is febrile and tachycardic with HR to 90s, soft blood pressures were fluid responsive. WBC normal (on chemo) but + left shift, Hyperbilirubinemia - direct and indirect, normal lipase, lactate 2.8. RUQUS with stones, PCF and + sono murpheys; the CBD wasn't visualized. CT abd/pel suggests CBD dilation to 1cm with hydroptic gallbladder appearance. History of multiple malignancies, currently on chemo- and immunotherapy for metastatic lung cancer with malignant pleural effusion and chronic dyspnea. On eliquis for chronic PE within the right main PA. Not a candidate for surgical intervention. - admitted to medicine - IV zosyn - Trend CBC/CMP, follow up blood cultures - plan for MRCP tomorrow - Eliquis held, on therapeutic lovenox for now - anticipate percutaneous cholecystostomy tube +/- PTC Surgery will follow Paula Charles DO, FACS General Surgeon, [facility] Lab Results 01/16/25 03:23 01/16/25 03:23 Diagnostic Imaging Results Diagnostic Imaging Results: positive Read contemporaneously
[2025-01-16] MEDS: FOLIC ACID 1 MG TABLET PO SCH (11:34)
[2025-01-16] MEDS: INSULIN REGULAR, HUMAN 300 UNIT/3 ML PEN SUBQ SCH (12:04)
[2025-01-16] MEDS: PIPERACILLIN/TAZOBACTAM 3.375 GM in SODIUM CHLORIDE 0.9% MINIBAG 100 ML IV SCH (12:12)
[2025-01-16] MEDS: SODIUM CHLORIDE 0.9% 1,000 ML IV SCH (13:46)
[2025-01-16] MEDS: CYCLOBENZAPRINE 10 MG TABLET PO SCH (14:58)
[2025-01-16] MEDS: ACETAMINOPHEN 1,000 MG/100 ML 1,000 MG/100 ML BAG IV PRN (16:28)
[2025-01-16] MEDS: SODIUM CHLORIDE FLUSH 0.9% 10 ML SYRINGE IVP SCH (16:31)
--- NOTE | 2025-01-16 16:35 | PHARMACY PROGRESS NOTE ---
Best Possible Medication History Admit Date and Time: 01/16/25 [id number] Home Medications Medication Instructions Recorded Confirmed Type atorvastatin 40 mg tablet 40 mg PO QPM 02/24/19 History metformin 500 mg tablet 500 mg PO BID 02/24/1901/16 History Nebulizer And Compressor #1 ea 07/12/23 01/16/25 Rx [Compressor Nebulizer System] albuterol sulfate 2.5 mg/3 mL 2.5 mg (3 mL) inhalation Q4H PRN 07/12/23 01/16/25 Rx (0.083 %) solution for nebulization Wheezing #30 mL albuterol sulfate 90 mcg/actuation 1 - 2 puff inhalati on Q4HR PRN 07/12/23 01/16/25 History aerosol inhaler (Ventolin HFA) Shortness Of Air/Wheezi ng insulin glargine 100 unit/mL (3 20 unit subcut QDBREAK FAST 04/29/24 01/16/25 History mL) subcutaneous pen (Lantus Solostar U-100 Insulin) potassium chloride 20 mEq 20 meq PO DAILY 04/29/2404/02 History tablet,extended release (K-Tab) cyclobenzaprine 10 mg tablet 10 mg PO TID #90 tabs 01/16/25 Rx empagliflozin 25 mg tablet 25 mg PO DAILY #90 tabs 01/16/25 Rx (Jardiance) levothyroxine 75 mcg tablet 75 mcg PO QDAY #90 tabs 01/16/25 Rx apixaban 5 mg tablet (Eliquis) 5 mg PO BID #180 tabs 1 07/04/23 01/16/25 Rx folic acid 1 mg tablet 1 mg PO QDAY 07/27/24 History inhalational spacing device 07/27/24 01/16/25 History (Aerochamber MV spacer) pen needle, diabetic 31 gauge x 07/27/24 01/16/25 His tory 3/16" (Droplet Pen Needle) syringe with needle 3 mL 25 gauge 07/27/24 01/16/25 H istory x 1" (Monoject 3cc Syringe) methocarbamol 750 mg tablet 750 mg PO QID 5 days #20 t abs 11/16/24 01/16/25 Rx dulaglutide 1.5 mg/0.5 mL 0.5 mg subcut .COMPLEX 01/0701/16/25 History subcutaneous pen injector (Trulicity) furosemide 40 mg tablet 40 mg PO QDAY 01/07/2501/16 History hydromorphone 2 mg tablet 2 mg PO Q4H PRN pain 5 01/16/25 History sertraline 100 mg tablet 100 mg PO DAILY 01/07/2504/02 History amoxicillin 875 mg-potassium 1 tab PO BID 01/16/2504/02 History clavulanate 125 mg tablet benzonatate 100 mg capsule 100 mg PO HS 01/16/2501/16 History dexamethasone 4 mg tablet 8 mg PO BID CHEMO INDUCED NA USEA 01/16/25 01/16/25 History diazepam 2 mg tablet (Valium) 2 mg PO Q8H PRN anxiety 01/16/25 01/16/25 History gabapentin 300 mg capsule 900 mg PO TID PAIN 01/16/25 01/16/25 History meloxicam 15 mg tablet 15 mg PO DAILY PRN pain 01/0701/16/25 History methylprednisolone 4 mg tablets in See Rx Instructions PO .COMPLEX 01/16/25 History a dose pack (Medrol (Du)) oxycodone-acetaminophen 5 mg-325 1 tab PO Q6H PRN pain 01/16/25 01/16/25 History mg tablet pantoprazole 20 mg tablet,delayed See Rx Instructions .Route .COMPLEX 01/16/25 01/16/25 History release valacyclovir 1 gram tablet 1,000 mg PO TID 01/16/25 History Processed by: Pharmacy Medications reviewed in ED?: Yes Medication History completed: Yes Patient Interview: Completed Secondary Source(s): Written medication list and Pharmacy records [facility] Statement: As the person ultimately responsible for medication therapy, providers are able to order a medication from an existing home medication list in [facility] via the "Reconcile Routine" prior to Confirmation of that medication by sales support associate. Such practice is discouraged except when the physician, in their clinical judgment, deems that a medical need exists for a medication without regard to previous use.
[2025-01-16] MEDS: ENOXAPARIN 100 MG/ML SYRINGE SUBQ SCH (21:20)
[2025-01-16] MEDS: INSULIN GLARGINE-YFGN 300 UNIT/3 ML PEN SUBQ SCH (21:28)
[2025-01-17 05:00] LABS: HCT - HEMATOCRIT 33.2 % (37.0-47.0); HGB - HEMOGLOBIN 10.8 g/dL (12.0-16.0); MEAN PLATELET VOLUME 9.3 fL (7.9-10.8); PLT - PLATELET COUNT 152 10^3/uL (130-450); RED CELL DISTRIBUTION WIDTH 14.3 % (12.0-15.0)
[2025-01-17 05:11] LABS: ABNORMAL LYMPHS % (MANUAL) 0 %; BAND NEUTROPHILS % (MANUAL) 0 %; BASOPHILS # (MANUAL) 0.0 10^3/uL (0-0.1); EOSINOPHILS # (MANUAL) 0.0 10^3/uL (0-0.7)
[2025-01-17 05:16] LABS: ALT ALANINE AMINOTRANSFERASE 45.0 IU/L (10-60); AST ASPARTATE AMINOTRANSFERASE 41.0 IU/L (10-42); BUN - BLOOD UREA NITROGEN 12.0 mg/dL (6-20); CARBON DIOXIDE - CO2 22.0 mmol/L (21-32); CREATININE 0.5 mg/dL (0.6-1.3); GFR - MDRD 123.0 (>89)
[2025-01-17 05:39] LABS: LYMPHOCYTES # (MANUAL) 0.7 10^3/uL (1.5-3.5); LYMPHOCYTES % (MANUAL) 10 %; MONOCYTES # (MANUAL) 0.1 10^3/uL (0.0-1.0); NEUTROPHILS # (MANUAL) 6.1 10^3/uL (1.5-6.6); PLATELET ESTIMATE, MANUAL NORMAL (130-450,000) (NORMAL); PLATELET MORPHOLOGY NORMAL APPEARANCE (NORMAL); RBC MORPHOLOGY (MULTIPLE) NORMAL APPEARANCE (NORMAL); WBC MORPHOLOGY (MULTIPLE) NORMAL APPEARANCE (NORMAL)
[2025-01-17] MEDS: PANTOPRAZOLE 40 MG VIAL IVP SCH (07:31)
[2025-01-17] MEDS: LEVOTHYROXINE 75 MCG TABLET PO SCH (07:32)
[2025-01-17] MEDS: INSULIN GLARGINE-YFGN 300 UNIT/3 ML PEN SUBQ SCH (08:30)
[2025-01-17] MEDS: DEXTROSE 5%-0.9% NACL 1,000 ML IV SCH (08:36)
[2025-01-17] MEDS: SERTRALINE 50 MG TABLET PO SCH (08:38)
[2025-01-17 09:46] LABS: ESTIMATED AVERAGE GLUCOSE 166 mg/dL (70-100); HEMOGLOBIN A1c% 7.4 % (4.27-6.07)
[2025-01-17] MEDS: DEXTROSE 50% ABBOJECT 25 GM/50 ML SYRINGE IVP ONE (10:45)
--- NOTE | 2025-01-17 11:26 | Discharge Summary ---
Discharge Summary Admit Date: 01/16/25 Discharge Date: 01/17/25 Discharging Provider: Magaly Resendez MD Primary Care Provider: IVON Medina Code Status: Do Not Attempt Resuscitation DIAGNOSES Discharge Diagnoses with Status of Each Condition: 1. Acute cholecystitis with acute cholangitis 2. Gram-negative bacteremia 3. Metastatic primary lung cancer 4. History of pulmonary embolism 5. Type 2 diabetes mellitus, controlled without complications, on long-term use of insulin 6. Chronic low back pain HPI History of Present Illness: HPI Comment/Other: Presents with abdominal pain in the context of ongoing lung cancer. Past medical history significant +Stage I adenocarcinoma of the right lower lung treated surgically with VATS right lower lobectomy in 01/2011. +She had a bout of thyroid cancer in 2017 treated with radiation. In 2021 she had a 2 cm left thyroid mass. Fine-needle aspiration benign in June 2022. PET scan in January 2023 continues to show a hypermetabolic nodule and she is being monitored with TSH. +She was diagnosed with a pT1c pN0 ER positive/ VT positive/ HER2/king negative intermediate grade invasive ductal carcinoma of the right breast in July 2020. She has had a right breast lumpectomy and sentinel lymph node biopsy. She received adjuvant radiation therapy but no chemotherapy or endocrine therapy. +A left upper lung lesion was being monitored at that time and in April 2022 was diagnosed as stage IIIc adenocarcinoma of the left lung diagnosed in May 2022. She completed RT of left upper lung. She has been on pembrolizumab with pemetrexed and carboplatin 21 day cycle. Treatment goal is control. Immunotherapy was added to her regimen in July 2023. By July 2024 she progressed to stage Mami with metastatic disease to the other lung. Her last therapy was 1-1/2 weeks ago. +Markers are positive for genetic lineage with inheritance from parents. As this woman has been treated for her lung cancer has had a series of staging CT scans, she has had several CT scans that have pulmonary emboli. 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 While in treatment, she has had pneumonia in August 2024. She was so weak she fell in her garage with this. She has terrible back pain and is using Robaxin and Dilaudid as well as Voltaren gel and Flexeril. She has been using a wheelchair since her fall in her garage associated with her pneumonia. Evaluation for her back pain and follow-up with an MRI shows her to have spinal stenosis in the lumbar region. She fell again in November 2024 and has back, shoulder and arm pain with difficulty sleeping at night. Seen January 07 in the emergency room for shortness of breath. She had a left pleural effusion that was treated with a thoracentesis. And she felt better breathing escobar. She then presented to the emergency room in the paradichlorobenzene tender hours of today because she developed gradually worsening epigastric abdominal pain since January 14. It comes and goes, radiates to her back. Vomiting started on January 15. Is continued into today. She denies fever, chills, change in the color of her urine. Because she has a history of coronary artery disease ([place] in 2002 with 2 sents and she says two more stents 2019), EMS gave her aspirin, Nitropaste and Zofran prior to bring her to the emergency room. In the ER she was afebrile at 36.9. Respirations were 22. Blood pressure 151/107. 96% on room air. She was ill-appearing in acute distress and could not get comfortable on the gurney. She had significant epigastric and right upper quadrant tenderness with exam but there is no rebound or guarding. She had normal bowel sounds. White cell count was 8.9. Liver enzymes were newly elevated with a total bili of 2.0. Direct bili 0.65. GGT is 72, AST is 66, ALT is 56. Alk phos 101. Lipase 24. Ultrasound was done and she has common bile duct and right kidney not being able to be evaluated. Cholelithiasis with pericholecystic fluid and a positive Benitez sign suggesting acute cholecystitis. No gross biliary ductal dilatation. A follow-up abdomen pelvis CT has a dilated gallbladder with gallstones and pericholecystic fluid. Mild dilation of the common bile duct. These are concerning for choledocholithiasis and acute cholecystitis. A left pleural effusion with adjacent consolidation likely atelectasis with infection that cannot be excluded. Her oncologist is Dr. Bran at [facility]. Her International Marketing Executive is Dr. Lundberg at [facility]. And her primary care provider is Audra [place]. She was last seen December 29 for her follow-up of her medical problems. Discussed the case with general surgery. This is a very complicated patient. Our pulmonary plan is to start her on antibiotics, and hopefully consult with radiology for IR drainage of the gallbladder. I am also ordering an MRCP to assess her common bile duct. She is on Eliquis for history of pulmonary emboli. I am stopping that and switching her over to Lovenox. CONSULTS | PROCEDURES Consultations: General Surgery Procedures: Ultrasound was done and she has common bile duct and right kidney not being able to be evaluated. Cholelithiasis with pericholecystic fluid and a positive Benitez sign suggesting acute cholecystitis. No gross biliary ductal dilatation. A follow-up abdomen pelvis CT has a dilated gallbladder with gallstones and pericholecystic fluid. Mild dilation of the common bile duct. These are concerning for choledocholithiasis and acute cholecystitis. A left pleural effusion with adjacent consolidation likely atelectasis with infection that cannot be excluded. January 16 left port and left arm blood cultures are both positive. Preliminary identification by PCR is Klebsiella pneumonia. Sensitivities pending. HOSPITAL COURSE Hospital Course: The patient was placed on antibiotics. Within 6 hours of admission her blood cultures became positive. PCR identifies this is Klebsiella pneumonia group. She is on single agent Zosyn.Activities are pending. She has not had an elevated white cell count with this and I think this may be due to the fact that she is on ongoing chemotherapy. She has had fevers. Yesterday's temperatures were 39.4. Her last temperature spike was on January 16 and was 38.1. Since then she has been afebrile and she is 36.6. She presented with a systolic of 148 and her lowest blood pressure was 100 systolic. This morning she is 125/66. She is miserable with the epigastric discomfort. Lethargic. I have her n.p.o. with ice chips and her home meds. Glucose has been controlled with Lantus and sliding scale insulin. This morning her glucose is 66 and 65 so started a D5 drip. Hemoglobin A1c is 7.4%. Because of her history of PEs, I did keep her anticoagulated with Lovenox and stopped her Eliquis. Last Eliquis dose was approximately January 15. She did receive Lovenox at 830 this morning. In discussing the case with general surgery today, general surgery has we looked at the CT scan and feels that she most likely does have a common bile duct stone. General surgery today is requesting transfer to higher level of care for ERCP. I have contacted Dr. Myron Dougherty at [facility] is on-call for GI today. The patient's usual housing project manager is Dr. Lundberg at [facility]. Dr. De La Garza wanted to make sure that interventional radiology was available if the patient needed to go to Plan B which is percutaneous drainage of her gallbladder. And I spoke to Dr. Harshal Armstrong who is interventional radiology. He states he will be available on shift until January 20. With that in mind both physicians were comfortable excepting her in transfer. I then spoke to the hospitalist which is Eddie Cuevas. He is excepted the patient to his medical service with consultation per the above services. I had explained all of this to the patient on the night of admission. There was a good chance I would be transferring her. On the day of transfer she was confused, and did not remember that conversation. I reinformed her on my thought process. Do not resuscitate status: States that she wants everything done in acute treatment. She would like blood transfusions, surgeries, antibiotics, pressors, and even BiPAP. However, if she stops breathing because of severe illness or her heart stops beating, she does not want to be resuscitated. At discharge she is person place and time. Still slightly lethargic but not as she was last night. Oral mucosa is dry. She looks very fatigued. Blood pressure is 126/66, pulse 64, respirations 24, temperature 36.6, O2 sat 96%. Neck is supple. Lungs have diminished breath sounds at the bases but there is no respiratory distress. She is able to have a complete conversation with me without any increased respiratory effort. No crackles, rhonchi or wheezing. Regular rate and rhythm that is in the 60s pulse. An abdomen that is soft, it is not rigid. Her right breast has changes of her breast cancer diagnosis and surgery. But she definitely has epigastric and right upper quadrant discomfort with palpation but no rebound or guarding. Hypoactive bowel sounds. Extremities have no edema. She has full range of motion of arms and legs. She needs help to sit up in bed but not because of immobility but because it hurts her abdomen too much to try and sit up. Follows commands. Greater than 30 minutes was spent coordinating discharge This document was made in part using voice recognition software. While efforts are made to proofread this document, sound alike and grammatical errors may occur. ALLERGIES Allergies Allergy/AdvReac Type Severity Reaction Status Date / Time codeine AdvReac Severe projectile Verified 01/16/25 03:29 vomiting duloxetine AdvReac Severe Nausea Verified 01/16/25 03:29 niacin AdvReac Severe Itching Verified 01/16/25 03:29 Opioids - Morphine Analogues AdvReac Severe Emesis/Itch Verified 01/16/25 03:29 ing propoxyphene (From Darvon) AdvReac Severe Itching Verified 01/16/25 03:29 ketamine AdvReac Nausea Verified 01/16/25 03:29 MEDICATIONS Ambulatory Orders Medication Instructions Recorded Confirmed atorvastatin 40 mg tablet 40 mg PO QPM 02/24/19 metformin 500 mg tablet 500 mg PO BID 02/24/1901/16 Nebulizer And Compressor #1 ea 07/12/23 01/16/25 [Compressor Nebulizer System] albuterol sulfate 2.5 mg/3 mL 2.5 mg (3 mL) inhalation Q4H PRN 07/12/23 01/16/25 (0.083 %) solution for nebulization Wheezing #30 mL albuterol sulfate 90 mcg/actuation 1 - 2 puff inhalati on Q4HR PRN 07/12/23 01/16/25 aerosol inhaler (Ventolin HFA) Shortness Of Air/Wheezi ng insulin glargine 100 unit/mL (3 20 unit subcut QDBREAK FAST 04/29/24 01/16/25 mL) subcutaneous pen (Lantus Solostar U-100 Insulin) potassium chloride 20 mEq 20 meq PO DAILY 04/29/2404/02 tablet,extended release (K-Tab) cyclobenzaprine 10 mg tablet 10 mg PO TID #90 tabs 01/16/25 empagliflozin 25 mg tablet 25 mg PO DAILY #90 tabs 01/16/25 (Jardiance) levothyroxine 75 mcg tablet 75 mcg PO QDAY #90 tabs 01/16/25 apixaban 5 mg tablet (Eliquis) 5 mg PO BID #180 tabs 1 07/04/23 01/16/25 folic acid 1 mg tablet 1 mg PO QDAY 07/27/24 inhalational spacing device 07/27/24 01/16/25 (Aerochamber MV spacer) pen needle, diabetic 31 gauge x 07/27/24 01/16/25 3/16" (Droplet Pen Needle) syringe with needle 3 mL 25 gauge 07/27/24 01/16/25 x 1" (Monoject 3cc Syringe) methocarbamol 750 mg tablet 750 mg PO QID 5 days #20 t abs 11/16/24 01/16/25 dulaglutide 1.5 mg/0.5 mL 0.5 mg subcut .COMPLEX 01/0701/16/25 [facility] furosemide 40 mg tablet 40 mg PO QDAY 01/07/2501/16 hydromorphone 2 mg tablet 2 mg PO Q4H PRN pain 5 01/16/25 sertraline 100 mg tablet 100 mg PO DAILY 01/07/2504/02 Augmentin 875 mg-potassium 1 tab PO BID 01/16/2501/16 clavulanate 125 mg tablet benzonatate 100 mg capsule 100 mg PO HS 01/16/2501/16 dexamethasone 4 mg tablet 8 mg PO BID CHEMO INDUCED NA USEA 01/16/25 01/16/25 diazepam 2 mg tablet (Valium) 2 mg PO Q8H PRN anxiety 01/16/25 01/16/25 gabapentin 300 mg capsule 900 mg PO TID PAIN 01/16/25 01/16/25 meloxicam 15 mg tablet 15 mg PO DAILY PRN pain 01/0701/16/25 methylprednisolone 4 mg tablets in See Rx Instructions PO .COMPLEX 01/16/25 a dose pack (Medrol (Du)) oxycodone-acetaminophen 5 mg-325 1 tab PO Q6H PRN pain 01/16/25 01/16/25 mg tablet pantoprazole 20 mg tablet,delayed See Rx Instructions .Route .COMPLEX 01/16/25 01/16/25 release valacyclovir 1 gram tablet 1,000 mg PO TID 01/16/25 PHYSICAL EXAM AT DISCHARGE Vital Signs: Vital Signs x48h Temp Pulse Resp BP Pulse Ox 01/17/25 13:16 37.0 C 72 20 141/70 H 95 01/17/25 11:05 36.6 C 64 24 125/66 96 LABS 01/17/25 04:37 01/17/25 04:37 SEPSIS Possible source of Sepsis: GI tract/intra-abdominal Discharge Plan Discharge Patient Disposition: 02 Transfer Acute Care Hosp Condition: Stable Medically Cleared Date:: 01/17/25 Prescriptions: No Action levothyroxine 75 mcg tablet 75 mcg PO QDAY Qty: 90 3RF cyclobenzaprine 10 mg tablet 10 mg PO TID Qty: 90 3RF Rx Instructions: as needed for muscle spasms Jardiance 25 mg tablet 25 mg PO DAILY Qty: 90 3RF Eliquis 5 mg tablet 5 mg PO BID Qty: 180 3RF folic acid 1 mg tablet 1 mg PO QDAY Rx Instructions: take 1 tablet by mouth once day (DME) pen needle, diabetic [Droplet Pen Needle] 31 gauge x 3/16" needle See Rx Instructions .Route Rx Instructions: As directed (DME) Monoject 3cc Syr 25Gx1" 3 mL 25 gauge x 1" syringe See Rx Instructions .Route Rx Instructions: As directed (DME) Aerochamber MV Spacer See Rx Instructions .Route Rx Instructions: As directed atorvastatin 40 MG tablet 40 mg PO QPM metformin 500 MG tablet 500 mg PO BID insulin glargine [Lantus Solostar U-100 Insulin] 100 unit/mL (3 mL) insulin pen 20 unit subcut QDBREAKFAST albuterol sulfate [Ventolin HFA] 200 PUFFS/18 GM HFA aerosol inhaler 1 - 2 puff inhalation Q4HR PRN (Reason: Shortness Of Air/Wheezing) Patient Comments: inhale 2 puffs by mouth every 4 hours if needed for shortness of breath cough or wheezing albuterol sulfate 2.5 MG/3 ML solution for nebulization 2.5 mg inhalation Q4H PRN (Reason: Wheezing) Qty: 30 0RF Rx Instructions: 1 AMPULE (DME) Nebulizer And Compressor [Compressor Nebulizer System] 1 EACH Each 1 ea miscellaneous QID Qty: 1 0RF methocarbamol 750 mg tablet 750 mg PO QID 5 Days Qty: 20 0RF hydromorphone 2 mg tablet 2 mg PO Q4H PRN (Reason: pain) Patient Comments: 2 mg orally every 4 hours As Needed for pain, Max Daily Dose: 4 sertraline 100 mg tablet 100 mg PO DAILY Trulicity 1.5 mg/0.5 mL pen injector 0.5 mg subcut .COMPLEX Rx Instructions: 0.5 mg subcutaneously TWO TIMES A WEEK; furosemide 40 mg tablet 40 mg PO QDAY oxycodone-acetaminophen 5-325 mg tablet 1 tab PO Q6H PRN (Reason: pain) Patient Comments: 1 tab orally QHS As Needed for pain; for pain benzonatate 100 mg capsule 100 mg PO HS dexamethasone 4 mg tablet 8 mg PO BID Patient Comments: TAKE FOR THREE CONSECUTIVE DAYS STARTING ONE DAY BEFORE CHEMO. diazepam [Valium] 2 mg tablet 2 mg PO Q8H PRN (Reason: anxiety) meloxicam 15 mg tablet 15 mg PO DAILY PRN (Reason: pain) valacyclovir 1 gram tablet 1,000 mg PO TID gabapentin 300 mg capsule 900 mg PO TID pantoprazole 20 mg tablet,delayed release (DR/EC) See Rx Instructions .ROUTE .COMPLEX Rx Instructions: TAKE 1 TABLET TWICE A DAY amoxicillin-pot clavulanate 875-125 mg tablet 1 tab PO BID methylprednisolone [Medrol (Du)] 4 mg tablets,dose pack See Rx Instructions .ROUTE .COMPLEX Rx Instructions: orally per package directions potassium chloride [K-Tab] 20 mEq tablet extended release 20 meq PO DAILY Activity Restrictions: Activity as Tolerated Health Concerns: You have a very long complicated history with regards to your cancer diagnosis. It has been a very hard medical course for you for many years now. You are still undergoing chemotherapy with your last chemotherapy a week and a half ago for your stage IV lung cancer. You began having pain in your upper abdomen and it was getting worse and causing nausea, vomiting, and chills. You came to our emergency room and we find you to have a gallbladder infection. Stones from your gallbladder had traveled down your ductal system in your GI tract and now your common bile duct between your pancreas and your liver are blocked. It is causing infection to go up into your liver. We are transferring you to [facility] to have a housing project manager perform a procedure to unblock the duct. Print Language: R[place] Report called to and time (if no answer, doc. time of each call attempted): 1 2:30, Kinza santamaria RN Vitals documented within 30 minutes of discharge?: Yes (yes, see vitals)
[2025-01-17 13:16] VITALS: BP 141/70; TEMP 98.6; O2SAT 95
== END 2025-01-17 13:17 | disposition short-term general hospital (02) | DRG 872 ==
LOC: ED 03:01 → MS2 10:14
PROVIDERS: ADMIT Specialist; ATTEND Specialist